=== PATIENT | female | born 1935 | race Caucasian/White ===

== ENCOUNTER 2018-03-06 09:37 | Emergency (ER) | payer OTHER, BC ==
[~2018-03-06] VITALS: Ht 162.6 cm; Wt 89.4 kg
[~2018-03-06 09:37] MED LIST: ACET500T58 PO; ASPEC81 PO; CHOL2000 PO; COEN1CAP37 PO; GLUCTAB54 PO; HYDR-3419 PO; LACTCAP27 PO; LISI20TA PO; OMEG10002 PO; PARO10TA PO; SYN125 PO; TRAZ50TA35 PO
[2018-03-06 09:40] VITALS: TEMP 37.2; Ht 162.6 cm; Wt 89.4 kg
[2018-03-06] MEDS ORDERED: METO50TA16 PO (10:22)
[2018-03-06] MEDS ORDERED: FURO-85 PO (10:22)
[2018-03-06] MEDS ORDERED: LEVO125T72 PO (10:22)
[2018-03-06] MEDS ORDERED: CLOP1TAB15 PO (10:22)
[2018-03-06] MEDS ORDERED: CHOL1000 PO (10:22)
[2018-03-06] MEDS ORDERED: HYDR-5688 PO (10:22)
[2018-03-06] MEDS ORDERED: ASPI81TA28 PO (10:22)
[2018-03-06] MEDS ORDERED: LISI-787 PO (10:22)
--- NOTE | 2018-03-06 10:46 | EMERGENCY ROOM VISIT NOTE ---
History First contact with patient: 10:12 Chief Complaint: FALL Stated Complaint: PAIN FROM FALL History of Present Illness The patient is a 82 year old female with hx of R knee replacement and need for L knee replacement presents to the Emergency Room with complaints of low back pain x 5 days s/p fall. Reports tripping over dog's toy on 5 days ago, falling on both knees and went against dog crate which pushed her back, back. Denies LOC or hitting head. Initially reported to be sore, went to chiropractor who set her back but pain worsened over the weekend. Associated with back weakness, bruise over L breast region, bruise and swelling of L leg (knee to ankle region) . Pt reports L leg being chronically weak due to knee problem and requiring cane to ambulate at times. Denies paraesthesias. Has chronic bladder incontinence. Constipated x 2 days (usually has diarrhea). Pt had a R knee replacement about 15 years ago and is scheduled to have L knee replacement. Pt has a TENS machine for back spasms which helps with pain Review of Systems see below Constitutional: No fever, No chills Cardiovascular: No chest pain Abdomen: + constipation, No pain, No nausea, No vomiting Musculoskeletal: + problem reported (back pain and L knee pain) Genitourinary - Female: + urinary incontinence (chronic) Neurologic: + weakness (back ), No numbness/tingling Integumentary: + problem reported (bruise over L breast and L knee down to L ankle region) Past Medical/Surgical History Medical Problems: (1) HTN (hypertension) (2) Hypothyroid Surgical Problems: (1) History of knee replacement Social History Smoking Status: Former Smoker Current/Historical Medications Scheduled Aspirin (Aspirin Ec), 81 MG PO DAILY Cholecalciferol (Vitamin D3), 1,000 UNIT PO DAILY Clopidogrel (Plavix), 75 MG PO DAILY Coenzyme Q10 (Ubidecarenone) (Co Q-10), 200 MG PO DAILY Furosemide (Lasix), 20 MG PO DIRECTED Dppfgtougmi-Kydugyljkgj-Cwdgmp (Glucosamine Chondroitin M), 2 TAB PO DAILY Lactobacillus-Inulin (Culturelle Digestive Heal), 1 CAP PO DAILY Levothyroxine Sodium (Synthroid), 125 MCG PO DAILY Lisinopril/Hctz (Zestoretic 20MG/12.5MG), 2 TAB PO DAILY Metoprolol Tartrate (Lopressor) (Lopressor), 50 MG PO BID [place]-3 Fatty Acids (Fish Oil), 1,000 MG PO DAILY Paroxetine Hcl (Paxil), 10 MG PO DAILY Tramadol Hcl (Ultram), 25 MG PO Q8H Trazodone Hcl (Trazodone), 75 MG PO HS Scheduled PRN Hydrocodone/Acetaminophen 5MG/325MG ([place] 5MG/325MG), 1 TABLET PO Q6 PRN for Pain Physical Exam Vital Signs Date Time Temp Pulse Resp B/P (MAP) Pulse Ox O2 Delivery O2 Flow Rate FiO2 03/06/18 09:40 37.2 66 16 190/78 96 Room Air Physical Exam see below General Appearance: no apparent distress Head: normocephalic, atraumatic Eyes: normal inspection ENT: normal ENT inspection Neck: supple Respiratory/Chest: lungs clear, normal breath sounds Cardiovascular: regular rate, rhythm, no murmur Abdomen / GI: normal bowel sounds, non tender, soft Back: normal inspection, + pertinent finding (L sided lumbar paraspinal muscle TTP, no spinous process TTP; neg straight leg raising test ) Extremities: + pertinent finding (full hip and knee ROM; reports back pain with full flesion of L leg) Neurologic/Psych: + pertinent finding (sensation intact over b/l LEs; strength 5/5 over b/l LEs) Medical Decision & Procedures Medical Decision 82 year old female with hx of R knee replacement and need for L knee replacement presents to the Emergency Room with complaints of low back pain x 5 days s/p fall. No LOC/did not hit head. Associated with L breast bruise and L leg bruise (knee to ankle). Consistent with lumbar strain vs. muscle spasm and ecchymosis s/p fall vs. L hip fracture vs. knee contusion -xray of b/l pelvis/hip; L knee and lumbar spine ordered - b/l pelvis/hip mild WANG; no fracture - medial L knee mod-severe WANG no fx or effusion - chronic low back changes -discharged home with ultram 25mg TID x 5 days Medication Reconcilliation Current Medication List: was personally reviewed by me Impression Primary Impression: Fall Additional Impression: Low back strain Departure Information Prescriptions Tramadol Hcl (ULTRAM) 50 Mg Tab 25 MG PO Q8H for 5 Days, #8 TAB PRN PAIN Prov: Amarjit Carty M.D. 03/06/18 Referrals Josh Sharma M.D. (PCP) Patient Instructions [facility] Problem Qualifiers
--- NOTE | 2018-03-06 11:39 | DIAGNOSTIC IMAGING REPORT ---
L KNEE 1 OR 2 VIEWS ROUTINE CLINICAL HISTORY: Left knee pain following fall. COMPARISON: Left knee radiographs June 14, 2014. FINDINGS: Alignment of the left knee is anatomic. No acute fracture or joint effusion is noted. There is moderate joint space narrowing within the medial compartment with osteophytosis. There is chondrocalcinosis within the menisci. IMPRESSION: 1. No acute fracture or joint effusion of the left knee. 2. 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 Electronically signed by: Everett Almaraz M.D. 03/06/2018 11:37 AM Dictated Date/Time: 03/06/2018 11:36 AM
--- NOTE | 2018-03-06 11:43 | DIAGNOSTIC IMAGING REPORT ---
PELVIS/BILATERAL HIP 2 VIEWS CLINICAL HISTORY: hip/back pain COMPARISON STUDY: None. FINDINGS: No fracture or dislocation within the pelvis or hips. The sacrum appears intact. Mild cartilage space narrowing, subchondral sclerosis, and small marginal osteophytes within the bilateral hips. This is consistent with osteoarthritis. There is also osteitis pubis. Faint chondrocalcinosis within the hips. Mild degenerative disease within the lower lumbar spine. Suture material within the right lower quadrant. IMPRESSION: 1. No fracture or dislocation within the pelvis or hips. 2. Mild bilateral hip osteoarthritis. 3. Chondrocalcinosis. Electronically signed by: Blas Garland M.D. 03/06/2018 11:41 AM Dictated Date/Time: 03/06/2018 11:40 AM
--- NOTE | 2018-03-06 11:46 | DIAGNOSTIC IMAGING REPORT ---
L-SPINE MIN 4 VIEWS ROUTINE HISTORY: 82 years-old Female low back pain acute low back pain status post fall COMPARISON: CT abdomen and pelvis 07/16/2016 TECHNIQUE: 5 views of the lumbar spine FINDINGS: 5 nonrib-bearing lumbar type vertebral segments are present. There is mild anterior wedging of approximately 20% involving the L1 vertebral body. Moderate multilevel endplate spurring with facet arthrosis and endplate spurring. Atherosclerosis of the aorta. Endograft of the thoracic aorta is partially imaged. Moderate stool volume throughout the colon. IMPRESSION: 1. Mild anterior wedging of approximately 20% involves the L1 vertebral body suggests age-indeterminate compression deformity. Correlate with point tenderness. 2. Multilevel intervertebral disc space narrowing, endplate spurring and facet arthrosis. The above report was generated using voice recognition software. It may contain grammatical, syntax or spelling errors. Electronically signed by: Erik Thomas M.D. 03/06/2018 11:44 AM Dictated Date/Time: 03/06/2018 11:41 AM
[2018-03-06] MEDS ORDERED: ULT/50 PO (12:02)
[2018-03-06 12:54] VITALS: BP 179/77; PULSE 66; O2SAT 95
--- NOTE | 2018-03-06 14:01 | EMERGENCY ROOM VISIT NOTE ---
History Report prepared by Bella: Kaushal Orozco Under the Supervision of: Dr. Minesh Beverly D.O. First contact with patient: 10:15 Chief Complaint: FALL Stated Complaint: PAIN FROM FALL History of Present Illness The patient is a 82 year old female who presents to the Emergency Room with complaints of constant low back pain s/p fall occurring five days ago. She states that she tripped over her dog's toy and landed onto both of her knees, before falling against her dog's crate. She states that she hit her back on the crate. The patient did not hit her head or lose consciousness. She was seen by a chiropractor for her pain a few days ago, but her pain worsened after seeing them. She has a TENS machine at home for back spasms which has helped her pain. The patient also complains of weakness to her back. She adds that she has chronic weakness in her left knee and ambulates using a cane at all times. She denies numbness. The patient has a history of chronic bladder incontinence. She notes that she has been constipated for the past two days, but normally has diarrhea. The patient had a right knee replacement about 15 years ago and is scheduled to have left knee replacement. She is on blood thinners. Source of History: patient Onset: Five days ago Position: back (lower) Timing: constant Modifying Factors (Worsening): other (chiropractor) Modifying Factors (Relieving): other (TENS machine) Associated Symptoms: + weakness (of back), No numbness Review of Systems See HPI for pertinent positives & negatives. A total of 10 systems reviewed and were otherwise negative. Past Medical & Surgical Medical Problems: (1) HTN (hypertension) (2) Hypothyroid Surgical Problems: (1) History of knee replacement Family History No pertinent family history stated. Social History Smoking Status: Former Smoker Current/Historical Medications Scheduled Aspirin (Aspirin Ec), 81 MG PO DAILY Cholecalciferol (Vitamin D3), 1,000 UNIT PO DAILY Clopidogrel (Plavix), 75 MG PO DAILY Coenzyme Q10 (Ubidecarenone) (Co Q-10), 200 MG PO DAILY Furosemide (Lasix), 20 MG PO DIRECTED Siqfhbwmdvb-Hisvtcebgsw-Moubsj (Glucosamine Chondroitin M), 2 TAB PO DAILY Lactobacillus-Inulin (Culturelle Digestive Heal), 1 CAP PO DAILY Levothyroxine Sodium (Synthroid), 125 MCG PO DAILY Lisinopril/Hctz (Zestoretic 20MG/12.5MG), 2 TAB PO DAILY Metoprolol Tartrate (Lopressor) (Lopressor), 50 MG PO BID [place]-3 Fatty Acids (Fish Oil), 1,000 MG PO DAILY Paroxetine Hcl (Paxil), 10 MG PO DAILY Tramadol Hcl (Ultram), 25 MG PO Q8H Trazodone Hcl (Trazodone), 75 MG PO HS Scheduled PRN Hydrocodone/Acetaminophen 5MG/325MG ([place] 5MG/325MG), 1 TABLET PO Q6 PRN for Pain Allergies Coded Allergies: Niacin (Verified Allergy, Intermediate, RENDESS, SKIN BURNING, 01/28/14) BEE STING (Verified Allergy, Mild, HIVES, 01/28/14) Molds and Smuts (Verified Allergy, Mild, SNEEZING, 01/28/14) Metformin (Verified Allergy, Unknown, MYALGIA, FATIGUE, 01/28/14) POLLEN (Verified Allergy, Unknown, TREE POLLENS: PROFOUND ACHE/FATIGUE, 01/28/14) Physical Exam Vital Signs Date Time Temp Pulse Resp B/P (MAP) Pulse Ox O2 Delivery O2 Flow Rate FiO2 03/06/18 12:54 66 16 179/77 95 03/06/18 12:45 66 16 179/77 95 03/06/18 09:40 37.2 66 16 190/78 96 Room Air Physical Exam CONSTITUTIONAL/VITAL SIGNS: Reviewed / noted above. GENERAL: Non-toxic in appearance. INTEGUMENTARY: Warm, dry, and [place]. HEAD: Normocephalic. EYES: without scleral icterus or trauma. ENT/OROPHARYNX: clear and moist. LYMPHADENOPATHY/NECK: Is supple without lymphadenopathy or meningismus. RESPIRATORY: Lungs clear and equal. CARDIOVASCULAR: Regular rate and rhythm. GI/ABDOMEN: Soft and nontender. No organomegaly or pulsatile mass. No rebound or guarding. Normal bowel sounds. EXTREMITIES: Warm and well perfused. BACK: No CVA tenderness. No palpable tenderness to the lumbar spine. NEUROLOGICAL: Intact without focal deficits. PSYCHIATRIC: normal affect. MUSCULOSKELETAL: Normally developed with good muscle tone. Diffuse ecchymosis to the left leg starting about the knee and inferior the ankle. Ecchymosis to the left breast. Medical Decision & Procedures ER Provider Diagnostic Interpretation: Radiology results as stated below per my review and radiologist interpretation: L-SPINE MIN 4 VIEWS ROUTINE FINDINGS: 5 nonrib-bearing lumbar type vertebral segments are present. There is mild anterior wedging of approximately 20% involving the L1 vertebral body. Moderate multilevel endplate spurring with facet arthrosis and endplate spurring. Atherosclerosis of the aorta. Endograft of the thoracic aorta is partially imaged. Moderate stool volume throughout the colon. IMPRESSION: 1. Mild anterior wedging of approximately 20% involves the L1 vertebral body suggests age-indeterminate compression deformity. Correlate with point tenderness. 2. Multilevel intervertebral disc space narrowing, endplate spurring and facet arthrosis. The above report was generated using voice recognition software. It may contain grammatical, syntax or spelling errors. Electronically signed by: Erik Thomas M.D. 03/06/2018 11:44 AM L KNEE 1 OR 2 VIEWS ROUTINE FINDINGS: Alignment of the left knee is anatomic. No acute fracture or joint effusion is noted. There is moderate joint space narrowing within the medial compartment with osteophytosis. There is chondrocalcinosis within the menisci. IMPRESSION: 1. No acute fracture or joint effusion of the left knee. 2. 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 Electronically signed by: Everett Almaraz M.D. 03/06/2018 11:37 AM PELVIS/BILATERAL HIP 2 VIEWS FINDINGS: No fracture or dislocation within the pelvis or hips. The sacrum appears intact. Mild cartilage space narrowing, subchondral sclerosis, and small marginal osteophytes within the bilateral hips. This is consistent with osteoarthritis. There is also osteitis pubis. Faint chondrocalcinosis within the hips. Mild degenerative disease within the lower lumbar spine. Suture material within the right lower quadrant. IMPRESSION: 1. No fracture or dislocation within the pelvis or hips. 2. Mild bilateral hip osteoarthritis. 3. Chondrocalcinosis. Electronically signed by: Blas Garland M.D. 03/06/2018 11:41 AM ED Course 1018: Previous medical records were reviewed. The patient was evaluated in room A10. A complete history and physical examination was performed. 1215: On reevaluation, the patient is resting comfortably. I discussed the results and findings with the patient. She verbalized agreement of the treatment plan. The patient was discharged home. Medical Decision Differential includes close head injury, intracranial bleed, facial trauma, cervical spine trauma, chest and thoracic trauma, abdominal and intra-abdominal trauma, spine neurologic trauma, extremity trauma. This is an 82-year-old female who presents to the ED with a chief complaint of a fall. The patient fell 5 days ago. The patient was seen in conjunction with the resident. Further details listed above. The patient was complaining of some low back pain. She also reported some left leg pain. She denies striking her head or loss of consciousness. She reports some chronic urinary incontinence. The patient on her exam reveals diffuse ecchymosis of the left lower extremity. She states that she is on Plavix and aspirin. She also has a contusion to her left breast. The patient has some minimal low back discomfort with palpation. There is no obvious trauma. The patient's x-rays of the lower extremity and back did not show acute fractures. There was a compression fracture of the vertebrae that is of uncertain age. The patient was told the results. She was advised to take Ultram as prescribed. She is felt to be stable for discharge. Medication Reconcilliation Current Medication List: was personally reviewed by me Blood Pressure Screening Patient's blood pressure: Elevated blood pressure Blood pressure disposition: Referred to PCP Impression Primary Impression: Fall Additional Impression: Low back strain Scribe Attestation The scribe's documentation has been prepared under my direction and personally reviewed by me in its entirety. I confirm that the note above accurately reflects all work, treatment, procedures, and medical decision making performed by me. Departure Information Dispostion Home / Self-Care Prescriptions Tramadol Hcl (ULTRAM) 50 Mg Tab 25 MG PO Q8H for 5 Days, #8 TAB PRN PAIN Prov: Amarjit Carty M.D. 03/06/18 Referrals Josh Sharma M.D. (PCP) Forms HOME CARE DOCUMENTATION FORM, IMPORTANT VISIT INFORMATION Patient Instructions Low Back Pain Self Care, My [facility] Status4 Additional Instructions Take: ultram 25mg three times a day as needed for pain follow up with your PCP within 1-2 days Problem Qualifiers
== END 2018-03-06 12:54 | disposition home or self-care (01) ==
LOC: C.EDB 09:39 → C.EDA 12:54
DX: S39.012A Strain of muscle, fascia and tendon of lower back, initial encounter (principal); S80.12XA Contusion of left lower leg, initial encounter; S20.02XA Contusion of left breast, initial encounter; W01.198A Fall on same level from slipping, tripping and stumbling with subsequent striking against other object, initial encounter; Y92.89 Other specified places as the place of occurrence of the external cause; I10 Essential (primary) hypertension; E03.9 Hypothyroidism, unspecified; Z96.651 Presence of right artificial knee joint; R32 Unspecified urinary incontinence; Z87.891 Personal history of nicotine dependence

== ENCOUNTER 2018-03-25 19:03 | Inpatient (IN) | payer OTHER, BC ==
[~2018-03-25] VITALS: Ht 162.6 cm; Wt 85.9 kg
[~2018-03-25 19:03] MED LIST changes: -ACET500T58 PO; -ASPEC81 PO; +ASPI81TA28 PO; +CHOL1000 PO; -CHOL2000 PO; +CLOP1TAB15 PO; +FURO-85 PO; -HYDR-3419 PO; +HYDR-5688 PO; +LEVO125T72 PO; +LISI-787 PO; -LISI20TA PO; +METO50TA16 PO; -SYN125 PO
[2018-03-25] MEDS ORDERED: ONDANSETRON INJ 2 MG/ML 2 ML VIAL IV STA (19:23)
[2018-03-25] MEDS ORDERED: SODIUM CHLORIDE 0.9% 1000ML 1,000 ML IV STA (19:23)
--- NOTE | 2018-03-25 19:49 | DIAGNOSTIC IMAGING REPORT ---
CHEST ONE VIEW PORTABLE CLINICAL HISTORY: LLQ pain pain COMPARISON STUDY: 07/21/2009 FINDINGS: Mild cardiomegaly. Interval placement of a valve stent. Slight left basilar interstitial prominence. Prominent pulmonary vasculature. IMPRESSION: 1. Pulmonary vascular congestion. 2. Potential interstitial infiltrative process left base The above report was generated using voice recognition software. It may contain grammatical, syntax or spelling errors. Electronically signed by: Bob Allred M.D. 03/25/2018 7:47 PM Dictated Date/Time: 03/25/2018 7:47 PM
--- NOTE | 2018-03-25 20:11 | EMERGENCY ROOM VISIT NOTE ---
History Report prepared by Bella: Mandi Vázquez Under the Supervision of: Graeme ValentinO. First contact with patient: 19:14 Chief Complaint: ABDOMINAL PAIN Stated Complaint: SIDE PAIN,VOMITING,DIARRHEA,NOT URINATING History of Present Illness The patient is a 82 year old female who presents to the Emergency Room with complaints of persistent abdominal pain pain which began several days ago. She reports a history of diverticulitis, noting that she saw her primary care physician recently regarding possibly having it now. The patient states that she first began experiencing lower middle abdominal pain, which radiates to her back. She notes that her sides hurt when she tries standing for too long. The patient reports that she has not been able to urinate much, noting that there has not been any blood in her urine. She states that she has been nauseous, which has been preventing her from eating much lately. The patient notes that she has been having diarrhea for about a week now, stating that she began vomiting a few days ago. Her PCP gave her 5mg of Hydrocodone for the pain, which has been helping. Source of History: patient Onset: several days ago Position: abdomen Quality: other (abdominal pain) Timing: other (persistent) Associated Symptoms: + nausea, + vomiting, + diarrhea Note: Associated symptoms include: abdominal pain radiates to her back, sides hurt when she tries standing for too long, not urinating much, and not eating much. Patient denies: blood in urine. Review of Systems See HPI for pertinent positives & negatives. A total of 10 systems reviewed and were otherwise negative. Past Medical & Surgical Medical Problems: (1) HTN (hypertension) (2) Hyponatremia (3) Hypothyroid (4) Nausea vomiting and diarrhea Surgical Problems: (1) History of knee replacement Family History Cancer Heart disease Hypertension Social History Smoking Status: Never Smoker Smokeless Tobacco Use: No Alcohol Use: none Drug Use: none Marital Status: Current/Historical Medications Scheduled Aspirin (Aspirin Ec), 81 MG PO DAILY Cholecalciferol (Vitamin D3), 1,000 UNIT PO DAILY Clopidogrel (Plavix), 75 MG PO DAILY Coenzyme Q10 (Ubidecarenone) (Co Q-10), 200 MG PO DAILY Furosemide (Lasix), 20 MG PO DIRECTED Hycfgcsvwcb-Lhdxspdgmwf-Ndrqlm (Glucosamine Chondroitin M), 2 TAB PO DAILY Lactobacillus-Inulin (Culturelle Digestive Heal), 1 CAP PO DAILY Levothyroxine Sodium (Synthroid), 125 MCG PO DAILY Lisinopril/Hctz (Zestoretic 20MG/12.5MG), 2 TAB PO DAILY Metoprolol Tartrate (Lopressor) (Lopressor), 50 MG PO BID [place]-3 Fatty Acids (Fish Oil), 1,000 MG PO DAILY Paroxetine Hcl (Paxil), 10 MG PO DAILY Trazodone Hcl (Trazodone), 75 MG PO HS Scheduled PRN Hydrocodone/Acetaminophen 5MG/325MG ([place] 5MG/325MG), 1 TABLET PO Q6 PRN for Pain Allergies Coded Allergies: Niacin (Verified Allergy, Intermediate, RENDESS, SKIN BURNING, 03/25/18) BEE STING (Verified Allergy, Mild, HIVES, 03/25/18) Molds and Smuts (Verified Allergy, Mild, SNEEZING, 03/25/18) Metformin (Verified Allergy, Unknown, MYALGIA, FATIGUE, 03/25/18) POLLEN (Verified Allergy, Unknown, TREE POLLENS: PROFOUND ACHE/FATIGUE, ) Physical Exam Vital Signs Date Time Temp Pulse Resp B/P (MAP) Pulse Ox O2 Delivery O2 Flow Rate FiO2 03/25/18 19:35 69 03/25/18 19:07 36.7 68 18 159/79 95 Room Air Physical Exam GENERAL: Patient is awake, alert, and in no acute distress. Patient appears mildly anxious but comfortable. EYES: The conjunctivae are clear. The pupils are round and reactive. EARS, NOSE, MOUTH AND THROAT: The nose is without any evidence of any deformity. Mucous membranes are moist tongue is midline NECK: The neck is nontender and supple. RESPIRATORY: Normal respiratory effort is noted there is no evidence of wheezing rhonchi or rales CARDIOVASCULAR: Regular rate and rhythm noted there no murmurs rubs or gallops normal S1 normal S2 GASTROINTESTINAL: Abdomen is mildly distended but soft with no guarding or rigidity. Bowel sounds are present in all quadrants. Abdomen is nontender PELVIS: The Pelvis is stable. No tenderness to palpation is noted. BACK: No midline tenderness or or step-off noted range of motion in flexion extension as well as rotation no signs of muscle spasm noted MUSCULOSKELETAL/EXTREMITIES: There is no evidence of gross deformity full range of motion is noted in the hips and shoulders SKIN: There is no obvious evidence of any rash. There are no petechiae, pallor or cyanosis noted. NEUROLOGIC: Patient is awake alert and oriented x3 Medical Decision & Procedures ER Provider Diagnostic Interpretation: Radiology results as stated below per my review and radiologist interpretation: CHEST ONE VIEW PORTABLE CLINICAL HISTORY: LLQ pain pain COMPARISON STUDY: 07/21/2009 FINDINGS: Mild cardiomegaly. Interval placement of a valve stent. Slight left basilar interstitial prominence. Prominent pulmonary vasculature. IMPRESSION: 1. Pulmonary vascular congestion. 2. Potential interstitial infiltrative process left base The above report was generated using voice recognition software. It may contain grammatical, syntax or spelling errors. Electronically signed by: Bob Allred M.D. 03/25/2018 7:47 PM Dictated Date/Time: 03/25/2018 7:47 PM ABD/PELVIS NO IV OR ORAL CONT CT DOSE: 942.21 mGycm HISTORY: LLQ pain TECHNIQUE: Multiaxial CT images of the abdomen and pelvis were performed without contrast. A dose lowering technique was utilized adhering to the principles of ALARA. COMPARISON STUDY: 07/22/2016 FINDINGS: Lung bases are clear. Liver spleen and pancreas are unremarkable. There is fatty replacement of the pancreas. Kidneys negative for hydronephrosis. Several for small renal cortical cysts are present. Bowel pattern is nonobstructive. There are findings of considerable chronic sigmoid diverticulosis. There is no evidence for acute diverticulitis. Bladder is midline. IMPRESSION: 1. Chronic sigmoid diverticulosis. 2. No evidence for diverticulitis. 3. The abdomen and pelvis is otherwise negative. The above report was generated using voice recognition software. It may contain grammatical, syntax or spelling errors. Electronically signed by: Bob Allred M.D. 03/25/2018 9:00 PM Dictated Date/Time: 03/25/2018 8:51 PM Laboratory Results Test 03/25/18 19:27 03/25/18 21:12 Immature Granulocyte % (Auto) 0.4 % White Blood Count 10.45 K/uL (4.8-10.8) Red Blood Count 4.98 M/uL (4.2-5.4) Hemoglobin 16.2 g/dL (12.0-16.0) Hematocrit 41.3 % (37-47) Mean Corpuscular Volume 82.9 fL (80-100) Mean Corpuscular Hemoglobin 32.5 pg (25-34) Mean Corpuscular Hemoglobin Concent 39.2 g/dl (32-36) Platelet Count 305 K/uL (130-400) Mean Platelet Volume 9.3 fL (7.4-10.4) Neutrophils (%) (Auto) 75.1 % Lymphocytes (%) (Auto) 18.0 % Monocytes (%) (Auto) 6.0 % Eosinophils (%) (Auto) 0.4 % Basophils (%) (Auto) 0.1 % Neutrophils # (Auto) 7.85 K/uL (1.4-6.5) Lymphocytes # (Auto) 1.88 K/uL (1.2-3.4) Monocytes # (Auto) 0.63 K/uL (0.11-0.59) Eosinophils # (Auto) 0.04 K/uL (0-0.5) Basophils # (Auto) 0.01 K/uL (0-0.2) Immature Granulocyte # (Auto) 0.04 K/uL (0.00-0.02) Red Blood Cell Morphology Unremarkable Erythrocyte Sedimentation Rate 5 mm/hr (0-21) Prothrombin Time 11.5 SECONDS (9.0-12.0) Prothromb Time International Ratio 1.1 (0.9-1.1) Activated Partial Thromboplast Time 27.2 SECONDS (21.0-31.0) Partial Thromboplastin Ratio 1.0 Osmolality 239 mOsm/kg (280-300) Total Bilirubin 0.8 mg/dl (0.2-1) Direct Bilirubin 0.2 mg/dl (0-0.2) Aspartate Amino Transf (AST/SGOT) 37 U/L (15-37) Alanine Aminotransferase (ALT/SGPT) 42 U/L (12-78) Alkaline Phosphatase 70 U/L (45-117) Troponin I < 0.015 ng/ml (0-0.045) C-Reactive Protein < 0.29 mg/dl (0-0.29) Total Protein 7.4 gm/dl (6.4-8.2) Albumin 3.6 gm/dl (3.4-5.0) Lipase 253 U/L (73-393) Urine Color YELLOW Urine Appearance CLEAR (CLEAR) Urine pH 7.0 (4.5-7.5) Urine Specific [place] 1.013 (1.000-1.030) Urine Protein NEG (NEG) Urine Glucose (UA) NEG (NEG) Urine Ketones 1+ (NEG) Urine Occult Blood NEG (NEG) Urine Nitrite NEG (NEG) Urine Bilirubin NEG (NEG) Urine Urobilinogen NEG (NEG) Urine Leukocyte Esterase NEG (NEG) Urine Osmolality 292 mOms/kg (500-800) Urine Random Sodium 45 mEq/L Laboratory results per my review. Medications Administered Medications (Trade) Dose Ordered Sig/Juan Jose Route Start Time Stop Time Status Last Admin Dose Admin Ondansetron HCl (Zofran Inj) 4 mg NOW STAT IV 03/25/18 19:23 03/25/18 19:25 DC 03/25/18 19:56 4 MG Sodium Chloride 1,000 ml @ 999 mls/hr Q1H1M STAT IV 03/25/18 19:23 03/25/18 20:23 DC 03/25/18 19:23 999 MLS/HR Potassium Chloride 100 ml @ 100 mls/hr NOW STAT IV 03/25/18 20:27 03/25/18 21:26 DC 03/25/18 22:31 100 MLS/HR Magnesium Sulfate 100 ml @ 100 mls/hr NOW STAT IV 03/25/18 21:43 03/25/18 22:42 DC 03/25/18 22:31 100 MLS/HR ECG Per My Interpretation Indication: abdominal pain Rate (beats per minute): 70 Rhythm: normal sinus Findings: no ectopy, other (LVH by voltage criteria) Change: no significant change (07/03/2009) ED Course 1915: The patient was evaluated in room B7. A complete history and physical examination were performed. 1922: Ordered Sodium Chloride 1000ml @ 999 mls/hr IV and Zofran Inj 4mg IV. 2026: Ordered Potassium Chloride 100 ml @ 100 mls/hr IV. 2136: Discussed the patient's case with Dr. Samuel Dent, [facility] hospitalist. He will evaluate her for further treatment. 2155: I reevaluated the patient and updated her and her family on test findings and the treatment plan. They verbalized complete understanding and agreement. Medical Decision Prior records/ancillary studies reviewed. Triage Nursing notes reviewed. The patient's history was concerning for abdominal pain. Differential diagnosis: Etiologies such as appendicitis, diverticulitis, PUD, biliary pathology, UTI, pancreatitis, obstruction, mesenteric ischemia, aortic pathology, infections, inflammatory bowel disease, renal colic, as well as others were entertained. The patient is an 82-year-old female who presented to the emergency department with multiple complaints including flank pain and abdominal pain. The patient has a history of a recent fall for which she sustained a lumbar compression fracture. I reviewed the patient's previous radiographic studies. The patient was started on antibiotics for possible diverticulitis because of the abdominal pain she was describing. The patient's physical exam was not consistent with acute surgical abdomen. CT abdomen and pelvis does not reveal any acute surgical findings. At this time I would wonder if the patient's overall condition is secondary to the compression fracture but she was also found to have very significant laboratory abnormalities including hyponatremia. She was treated with IV fluids in the emergency department. I discussed patient's laboratory and radiographic studies with her and her family member. I also discussed her case with the on-call [facility] hospitalist. They have agreed to evaluate the patient in the emergency department for further management and disposition. Medication Reconcilliation Current Medication List: was personally reviewed by me Blood Pressure Screening Patient's blood pressure: Elevated blood pressure Blood pressure disposition: Elevated BP felt to be situational Consults Time Called: 2136 Consulting Physician: Dr. Samuel Dent [facility] hospitalist Returned Call: 2136 Discussed the patient's case with Dr. Samuel Dent [facility] hospitalist. He will evaluate her for further treatment. Impression Primary Impression: Flank pain Additional Impressions: Lumbar compression fracture Hyponatremia Scribe Attestation The scribe's documentation has been prepared under my direction and personally reviewed by me in its entirety. I confirm that the note above accurately reflects all work, treatment, procedures, and medical decision making performed by me. Departure Information Dispostion Being Evaluated By Hospitalist Referrals Lisbet Pham M.D. (PCP) Forms HOME CARE DOCUMENTATION FORM, IMPORTANT VISIT INFORMATION Patient Instructions My [facility] Problem Qualifiers Additional Impressions: Lumbar compression fracture Encounter type: subsequent encounter
[2018-03-25 20:13] LABS: HEMATOCRIT 41.3 % (37-47); HEMOGLOBIN 16.2 g/dL (12.0-16.0); MEAN CELL VOLUME 82.9 fL (80-100); MEAN CORPUSCULAR HEMOGLOBIN 32.5 pg (25-34); MEAN CORPUSCULAR HGB CONC 39.2 g/dl (32-36); MEAN PLATELET VOLUME 9.3 fL (7.4-10.4); PLATELET COUNT 305 K/uL (130-400); RED CELL DISTRIBUTION WIDTH SD 36.1 fL (36.4-46.3); WHITE BLOOD COUNT 10.45 K/uL (4.8-10.8)
[2018-03-25 20:16] LABS: BASO % 0.1 %; BASO ABS # 0.01 K/uL (0-0.2); EOS % 0.4 %; EOS ABS # 0.04 K/uL (0-0.5); IG# 0.04 K/uL (0.00-0.02); LYMPH ABS # 1.88 K/uL (1.2-3.4); MONO ABS # 0.63 K/uL (0.11-0.59); NEUT % 75.1 %; NEUT ABS # 7.85 K/uL (1.4-6.5)
[2018-03-25 20:19] LABS: ALBUMIN 3.6 gm/dl (3.4-5.0); ALKALINE PHOSPHATASE 70 U/L (45-117); ALT/SGPT 42 U/L (12-78); AST/SGOT 37 U/L (15-37); BLOOD UREA NITROGEN 7 mg/dl (7-18); CALCIUM 8.1 mg/dl (8.5-10.1); CARBON DIOXIDE 27 mmol/L (21-32); CREATININE 0.63 mg/dl (0.60-1.20); GLUCOSE 153 mg/dl (70-99); LIPASE 253 U/L (73-393); POTASSIUM 2.9 mmol/L (3.5-5.1); SODIUM 115 mmol/L (136-145); TOTAL PROTEIN 7.4 gm/dl (6.4-8.2)
[2018-03-25] MEDS ORDERED: POTASSIUM CHLR 10 MEQ / WTR 100 ML IV STA (20:27)
[2018-03-25 20:43] LABS: INR 1.1 (0.9-1.1); PTT PATIENT 27.2 SECONDS (21.0-31.0)
--- NOTE | 2018-03-25 21:01 | DIAGNOSTIC IMAGING REPORT ---
ABD/PELVIS NO IV OR ORAL CONT CT DOSE: 942.21 mGycm HISTORY: LLQ pain TECHNIQUE: Multiaxial CT images of the abdomen and pelvis were performed without contrast. A dose lowering technique was utilized adhering to the principles of ALARA. COMPARISON STUDY: 07/22/2016 FINDINGS: Lung bases are clear. Liver spleen and pancreas are unremarkable. There is fatty replacement of the pancreas. Kidneys negative for hydronephrosis. Several for small renal cortical cysts are present. Bowel pattern is nonobstructive. There are findings of considerable chronic sigmoid diverticulosis. There is no evidence for acute diverticulitis. Bladder is midline. IMPRESSION: 1. Chronic sigmoid diverticulosis. 2. No evidence for diverticulitis. 3. The abdomen and pelvis is otherwise negative. The above report was generated using voice recognition software. It may contain grammatical, syntax or spelling errors. Electronically signed by: Bob Allred M.D. 03/25/2018 9:00 PM Dictated Date/Time: 03/25/2018 8:51 PM
[2018-03-25 21:38] LABS: OSMOLALITY,URINE 292 mOms/kg (500-800)
[2018-03-25] MEDS ORDERED: MAGNESIUM SULFATE 1GM / D5W 100 ML IV STA (21:43)
[2018-03-25 21:44] LABS: SODIUM RANDOM URINE 45 mEq/L
[2018-03-25] MEDS ORDERED: HYDROCODONE/ACETAMIN 5/325MG TAB PO PRN (21:45)
[2018-03-25] MEDS ORDERED: ALUMINUM/MAGNESIUM/SIMETH (MAALOX MAX) 30 ML UDC PO PRN (22:00)
[2018-03-25] MEDS ORDERED: MAGNESIUM HYDROXIDE SUSP 30 ML UDC PO PRN (22:00)
[2018-03-25] MEDS ORDERED: POLYETHYLENE (MIRALAX) 17 GM PACK PO PRN (22:00)
[2018-03-25] MEDS ORDERED: ONDANSETRON INJ 2 MG/ML 2 ML VIAL IV PRN (22:00)
[2018-03-25] MEDS ORDERED: ACETAMINOPHEN 325 MG TAB PO PRN (22:00)
--- NOTE | 2018-03-25 22:42 | History and Physical ---
History & Physical Date & Time of Service: Mar 25, 2018 at 22:19 Chief Complaint: Side Pain,Vomiting,Diarrhea,Not Urinating Primary Care Physician: Lisbet Pham M.D. History of Present Illness Source: patient 82 y/o F Hx HTN, hypothyroid, colon CA, chronic sigmoid diverticulitis, TAVR . Presents with nausea, vomiting, diarrhea and back and flank pain. She has had diarrhea for 3 weeks and also developed nausea and vomiting over the past few days. She cannot confirm a fever. She suffered a fall 03/06 leading to an L1 compression fracture and has had lower back and flank pain which she states has been worsening over the past few days. She denies CP, SOB. Her urine output has been minimal, although shed dines dysuria. Initial labs in the ER are notable for hypokalemia and hyponatremia with a sodium of 114. A CT of the abdomen confirms chronic sigmoid diverticulosis without evidence of diverticulitis. she has been treated with Cipro, Flagyl and Augmentin. 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 [place] 06/2017 2) Stage II colon CA resected 2008 3) Diverticulosis 4) HTN 5) Hypothyroidism 6) Osteoporosis Family History Cancer Heart disease Hypertension Social History Does not smoke or drink Smoking Status: Never Smoker Smokeless Tobacco Use: No Drug Use: none Marital Status: Immunizations History of Influenza Vaccine: N/A Influenza Vaccine Date: Aug 22, 2008 History of Tetanus Vaccine?: Yes Tetanus Immunization Date: Jul 22, 2008 History of Pneumococcal: Yes Pneumococcal Date: Jul 22, 2004 History of Hepatitis B Vaccine: No Allergies Coded Allergies: Niacin (Verified Allergy, Intermediate, RENDESS, SKIN BURNING, 03/25/18) BEE STING (Verified Allergy, Mild, HIVES, 03/25/18) Molds and Smuts (Verified Allergy, Mild, SNEEZING, 03/25/18) Metformin (Verified Allergy, Unknown, MYALGIA, FATIGUE, 03/25/18) POLLEN (Verified Allergy, Unknown, TREE POLLENS: PROFOUND ACHE/FATIGUE, ) Home Medications Scheduled Aspirin (Aspirin Ec), 81 MG PO DAILY Cholecalciferol (Vitamin D3), 1,000 UNIT PO DAILY Clopidogrel (Plavix), 75 MG PO DAILY Coenzyme Q10 (Ubidecarenone) (Co Q-10), 200 MG PO DAILY Furosemide (Lasix), 20 MG PO DIRECTED Csbwcoqvwqx-Wuvgfiktyau-Hblixu (Glucosamine Chondroitin M), 2 TAB PO DAILY Lactobacillus-Inulin (Culturelle Digestive Heal), 1 CAP PO DAILY Levothyroxine Sodium (Synthroid), 125 MCG PO DAILY Lisinopril/Hctz (Zestoretic 20MG/12.5MG), 2 TAB PO DAILY Metoprolol Tartrate (Lopressor) (Lopressor), 50 MG PO BID [place]-3 Fatty Acids (Fish Oil), 1,000 MG PO DAILY Paroxetine Hcl (Paxil), 10 MG PO DAILY Trazodone Hcl (Trazodone), 75 MG PO HS Scheduled PRN Hydrocodone/Acetaminophen 5MG/325MG ([place] 5MG/325MG), 1 TABLET PO Q6 PRN for Pain Review of Systems Constitutional: No fever, No chills, No sweats Eyes: No worsening of vision ENT: No hearing loss, No nasal symptoms Respiratory: No cough, No sputum, No wheezing Cardiovascular: No chest pain, No orthopnea, No PND Abdomen: + nausea, + vomiting, + diarrhea, + problem reported (BL flank pain ) , No pain Musculoskeletal: + joint pain (Lower back pain) Genitourinary - Female: No dysuria, No urinary frequency Neurologic: No memory loss, No paralysis Psychiatric: No depression symptoms Endocrine: No fatigue Hematologic / Lymphatic: No abnormal bleeding/bruising Integumentary: No rash Allergic / Immunologic: No environmental allergies Physical Exam Vital Signs Date Time Temp Pulse Resp B/P (MAP) Pulse Ox O2 Delivery O2 Flow Rate FiO2 03/25/18 22:09 78 20 182/93 94 Room Air 03/25/18 19:35 69 03/25/18 19:07 36.7 68 18 159/79 95 Room Air General Appearance: WD/WN, no apparent distress Head: normocephalic Eyes: normal inspection ENT: normal ENT inspection, pharynx normal Neck: supple, no JVD Respiratory/Chest: chest non-tender, lungs clear, normal breath sounds Cardiovascular: regular rate, rhythm, no edema Abdomen/GI: normal bowel sounds, non tender, soft Back: no CVA tenderness, + pertinent finding (I did not sit the pt up as this exacerbates her pain) Extremities/Musculoskelatal: no calf tenderness, normal capillary refill Neurologic/Psych: lye treater II-XII nml as tested, no motor/sensory deficits, alert, oriented x 3 Skin: normal color Diagnostics Laboratory Results Results Past 24 Hours Test 03/25/18 19:27 03/25/18 21:12 Range/Units White Blood Count 10.45 4.8-10.8 K/uL Red Blood Count 4.98 4.2-5.4 M/uL Hemoglobin 16.2 12.0-16.0 g/dL Hematocrit 41.3 37-47 % Mean Corpuscular Volume 82.9 80-100 fL Mean Corpuscular Hemoglobin 32.5 25-34 pg Mean Corpuscular Hemoglobin Concent 39.2 32-36 g/dl Platelet Count 305 130-400 K/uL Mean Platelet Volume 9.3 7.4-10.4 fL Neutrophils (%) (Auto) 75.1 % Lymphocytes (%) (Auto) 18.0 % Monocytes (%) (Auto) 6.0 % Eosinophils (%) (Auto) 0.4 % Basophils (%) (Auto) 0.1 % Neutrophils # (Auto) 7.85 1.4-6.5 K/uL Lymphocytes # (Auto) 1.88 1.2-3.4 K/uL Monocytes # (Auto) 0.63 0.11-0.59 K/uL Eosinophils # (Auto) 0.04 0-0.5 K/uL Basophils # (Auto) 0.01 0-0.2 K/uL RDW Standard Deviation 36.1 36.4-46.3 fL RDW Coefficient of Variation 12.0 11.5-14.5 % Immature Granulocyte % (Auto) 0.4 % Immature Granulocyte # (Auto) 0.04 0.00-0.02 K/uL Red Blood Cell Morphology Unremarkable Erythrocyte Sedimentation Rate 5 0-21 mm/hr Prothrombin Time 11.5 9.0-12.0 SECONDS Prothromb Time International Ratio 1.1 0.9-1.1 Activated Partial Thromboplast Time 27.2 21.0-31.0 SECONDS Partial Thromboplastin Ratio 1.0 Sodium Level 115 136-145 mmol/L Potassium Level 2.9 3.5-5.1 mmol/L Chloride Level 79 98-107 mmol/L Carbon Dioxide Level 27 21-32 mmol/L Anion Gap 9.0 3-11 mmol/L Blood Urea Nitrogen 7 7-18 mg/dl Creatinine 0.63 0.60-1.20 mg/dl Est Creatinine Clear Calc Drug Dose 70.5 ml/min Estimated GFR () 95.5 Estimated GFR (Non- 82.4 BUN/Creatinine Ratio 11.0 10-20 Random Glucose 153 70-99 mg/dl Osmolality 239 280-300 mOsm/kg Calcium Level 8.1 8.5-10.1 mg/dl Total Bilirubin 0.8 0.2-1 mg/dl Direct Bilirubin 0.2 0-0.2 mg/dl Aspartate Amino Transf (AST/SGOT) 37 15-37 U/L Alanine Aminotransferase (ALT/SGPT) 42 12-78 U/L Alkaline Phosphatase 70 45-117 U/L Troponin I < 0.015 0-0.045 ng/ml C-Reactive Protein < 0.29 0-0.29 mg/dl Total Protein 7.4 6.4-8.2 gm/dl Albumin 3.6 3.4-5.0 gm/dl Lipase 253 73-393 U/L Urine Color YELLOW Urine Appearance CLEAR CLEAR Urine pH 7.0 4.5-7.5 Urine Specific [place] 1.013 1.000-1.030 Urine Protein NEG NEG Urine Glucose (UA) NEG NEG Urine Ketones 1+ NEG Urine Occult Blood NEG NEG Urine Nitrite NEG NEG Urine Bilirubin NEG NEG Urine Urobilinogen NEG NEG Urine Leukocyte Esterase NEG NEG Urine Osmolality 292 500-800 mOms/kg Urine Random Sodium 45 mEq/L Diagnostic Radiology XR lumbar 03/06: 1. Mild anterior wedging of approximately 20% involves the L1 vertebral body suggests age-indeterminate compression deformity. Correlate with point tenderness. 2. Multilevel intervertebral disc space narrowing, endplate spurring and facet arthrosis. CT abdomen: Impression Assessment and Plan 82 y/o F Hx HTN, hypothyroid, colon CA, chronic sigmoid diverticulitis, TAVR . Presents with nausea, vomiting, diarrhea and back and flank pain. She has had diarrhea for 3 weeks and also developed nausea and vomiting over the past few days. She cannot confirm a fever. She suffered a fall 03/06 leading to an L1 compression fracture and has had lower back and flank pain which she states has been worsening over the past few days. She denies CP, SOB. Her urine output has been minimal, although shed dines dysuria. Initial labs in the ER are notable for hypokalemia and hyponatremia with a sodium of 114. A CT of the abdomen confirms chronic sigmoid diverticulosis without evidence of diverticulitis. 1) Hypona, hypoK due to N/V/D - electrolytes will be corrected and carefully trended - pt will be monitored on telemetry in the interim. 2) N/V/D - there is no current evidence of diverticulitis. She has been on antibiotics for 3 weeks and is certainly at risk of C diff - studies and stool cultures ordered - antibiotics held at present. Provided with aggressive hydration. 3) HTN - diuretic is held - her renal function is excellent despite dehydration. We will sub Hydralazine PRN while she is rehydrated. 4) History of TAVR - she was placed on ASA and Plavix following her surgery - we will continue as tolerated. 5) Hypothyroidism - cont Synthroid - check TSH due to hyponatremia 6) Back and flank pain are likely the result of a compression fracture sustained on 03/06 - cont analgesics - PT/OT AM Full code - Heparin prophylaxis Total time for this admit including review of labs, meds, imaging, records - discussion with pt and ER attending - 38 min Resuscitation Status VTE Prophylaxis Will order VTE Prophylaxis: Yes
[2018-03-25] MEDS ORDERED: HYDROmorphone INJ 0.5 MG/0.5 ML SYR IV PRN (23:00)
[2018-03-25 23:42] VITALS: BP 174/82; PULSE 87; TEMP 36.7; O2SAT 94; Ht 162.6 cm; Wt 85.9 kg
[2018-03-25] MEDS ORDERED: NSS + 20MEQ KCL 1000ML 1,000 ML IV SCH (23:45)
[2018-03-26] VITALS (7 sets, daily range): BP systolic 111–178; BP diastolic 67–90; PULSE 57–75; TEMP 36.8–37; O2SAT 93–98
[2018-03-26 00:15] LABS: CALCIUM 8.2 mg/dl (8.5-10.1); CREATININE 0.52 mg/dl (0.60-1.20)
[2018-03-26] MEDS: HEPARIN SOD 5000 UNIT/0.5 ML CARP SQ SCH ×3 (00:15→16:33)
[2018-03-26] MEDS: POTASSIUM CHLR 10 MEQ / WTR 100 ML IV SCH ×4 (00:15→10:23)
[2018-03-26 02:31] LABS: CALCIUM 8.2 mg/dl (8.5-10.1); CREATININE 0.63 mg/dl (0.60-1.20); POTASSIUM 3.5 mmol/L (3.5-5.1)
[2018-03-26 06:21] LABS: CALCIUM 7.9 mg/dl (8.5-10.1); CREATININE 0.43 mg/dl (0.60-1.20); POTASSIUM 3.2 mmol/L (3.5-5.1)
[2018-03-26] MEDS: LEVOTHYROXINE 125 MCG TAB PO SCH (06:25)
[2018-03-26] MEDS ORDERED: NURSING VERBAL MED ORDER ONE (06:40)
[2018-03-26 07:20] LABS: HEMOGLOBIN 14.5 g/dL (12.0-16.0); MEAN CORPUSCULAR HEMOGLOBIN 31.2 pg (25-34); MEAN CORPUSCULAR HGB CONC 36.3 g/dl (32-36); MEAN PLATELET VOLUME 8.6 fL (7.4-10.4); PLATELET COUNT 250 K/uL (130-400); RED CELL DISTRIBUTION WIDTH CV 12.2 % (11.5-14.5); RED CELL DISTRIBUTION WIDTH SD 39.1 fL (36.4-46.3)
[2018-03-26] MEDS: PAROXETINE 20 MG TAB PO SCH (07:39)
[2018-03-26] MEDS: CLOPIDOGREL BISULFATE 75 MG TAB PO SCH (07:39)
[2018-03-26] MEDS: ASPIRIN 81 MG ECTAB PO SCH (07:39)
[2018-03-26] MEDS: METOPROLOL TARTRATE 50 MG TAB PO SCH ×2 (07:39→20:37)
[2018-03-26] MEDS ORDERED: POTASSIUM CHLR 20 MEQ / WTR 20 MEQ in PREMIXED WATER 100 ML IV STA (08:21)
[2018-03-26] MEDS ORDERED: POTASSIUM CHLORIDE 10 MEQ TABCR PO STA (08:21)
[2018-03-26] MEDS ORDERED: POTASSIUM PHOS 3 MMOL/1 ML INFUSION IV STA (08:21)
[2018-03-26] MEDS ORDERED: POTASSIUM PHOSPHATE INJ 15 MMOL in SODIUM CHLORIDE 0.9% 250ML 250 ML IV ONE (08:30)
[2018-03-26 12:42] LABS: CALCIUM 8.1 mg/dl (8.5-10.1); CREATININE 0.53 mg/dl (0.60-1.20); POTASSIUM 4.4 mmol/L (3.5-5.1)
[2018-03-26] MEDS ORDERED: ENALAPRILAT IV 2.5 MG in DEXTROSE 5% 25ML 25 ML IV ONE (16:30)
[2018-03-26 16:48] LABS: CALCIUM 7.8 mg/dl (8.5-10.1); CREATININE 0.51 mg/dl (0.60-1.20); POTASSIUM 3.9 mmol/L (3.5-5.1)
--- NOTE | 2018-03-26 17:08 | Progress Note ---
Subjective Date of Service: Mar 26, 2018. Subjective Pt evaluation today including: conversation w/ patient, physical exam, chart review, lab review, review of studies, conversation w/ construction safety consultant, review of inpatient medication list generally feeling better, no more nausea vomiting, tolerate diet, denies abdominal pain denies diarrhea constipation, has 1 bowel movement already Problem List Medical Problems: (1) Fall Status: Acute (2) Flank pain Status: Acute (3) Low back strain Status: Acute (4) Lumbar compression fracture Status: Acute Review of Systems Constitutional: + weakness, + fatigue, No fever, No chills, No sweats, No weight loss, No problem reported Eyes: No worsening of vision, No eye pain, No redness, No discharge, No diplopia ENT: No hearing loss, No unusual epistaxis, No nasal symptoms, No sore throat, No tinnitus, No dental problems, No trouble swallowing Respiratory: No cough, No sputum, No wheezing, No shortness of breath, No dyspnea on exertion, No dyspnea at rest, No hemoptysis Cardiac: No chest pain, No orthopnea, No PND, No edema, No claudication, No palpitations Abdomen: No pain, No nausea, No vomiting, No diarrhea, No constipation Musculoskeletal: No joint pain, No muscle pain, No swelling, No calf pain Female : No dysuria, No urinary frequency, No hematuria, No incontinence, No abnormal vaginal bleeding, No vaginal discharge Neurologic: No memory loss, No paralysis, No weakness, No numbness/tingling, No vertigo, No balance problems Psychiatric: No depression symptoms, No anhedonism, No anxiety, No insomnia, No substance abuse Heme: No abnormal bleeding/bruising, No clotting problems, No swollen lymph nodes, No night sweats Endo: No fatigue, No excessive thirst, No excessive urination Skin: No rash, No itch, No new/changing skin lesions, No color change, No bleeding Objective Vital Signs Date Time Temp Pulse Resp B/P (MAP) Pulse Ox O2 Delivery O2 Flow Rate FiO2 03/26/18 15:41 36.8 62 20 178/88 (118) 93 Room Air 03/26/18 12:19 36.8 67 18 177/90 (119) 94 03/26/18 12:03 Room Air 03/26/18 08:05 Room Air 03/26/18 07:45 36.8 75 18 159/75 (103) 98 03/26/18 04:00 Room Air 03/26/18 03:48 37.0 74 18 165/80 (108) 96 Room Air 03/25/18 23:42 36.7 87 18 174/82 94 Room Air 03/25/18 22:09 78 20 182/93 94 Room Air 03/25/18 19:35 69 03/25/18 19:07 36.7 68 18 159/79 95 Room Air Physical Exam General Appearance: WD/WN, no apparent distress, + pertinent finding (Pleasant conversational) Eyes: normal inspection, PERRL, EOMI, sclerae normal ENT: normal ENT inspection, hearing grossly normal, pharynx normal Neck: supple, no adenopathy, thyroid normal, no JVD, no carotid bruits, trachea midline Respiratory/Chest: chest non-tender, normal breath sounds, no respiratory distress, no accessory muscle use, + decreased breath sounds Cardiovascular: regular rate, rhythm, no edema, no gallop, no JVD, no murmur Abdomen: normal bowel sounds, non tender, soft, no organomegaly, no pulsatile mass Extremities: normal range of motion, non-tender, normal inspection, no pedal edema, no calf tenderness, normal capillary refill, pelvis stable 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, no motor/sensory deficits, alert, normal mood/affect, oriented x 3 Skin: normal color, warm/dry, no rash Lymphatic: no adenopathy Laboratory Results Last 24 Hours Test 03/25/18 19:27 03/25/18 21:12 03/25/18 23:52 03/26/18 02:01 White Blood Count 10.45 K/uL Red Blood Count 4.98 M/uL Hemoglobin 16.2 g/dL Hematocrit 41.3 % Mean Corpuscular Volume 82.9 fL Mean Corpuscular Hemoglobin 32.5 pg Mean Corpuscular Hemoglobin Concent 39.2 g/dl Platelet Count 305 K/uL Mean Platelet Volume 9.3 fL Neutrophils (%) (Auto) 75.1 % Lymphocytes (%) (Auto) 18.0 % Monocytes (%) (Auto) 6.0 % Eosinophils (%) (Auto) 0.4 % Basophils (%) (Auto) 0.1 % Neutrophils # (Auto) 7.85 K/uL Lymphocytes # (Auto) 1.88 K/uL Monocytes # (Auto) 0.63 K/uL Eosinophils # (Auto) 0.04 K/uL Basophils # (Auto) 0.01 K/uL RDW Standard Deviation 36.1 fL RDW Coefficient of Variation 12.0 % Immature Granulocyte % (Auto) 0.4 % Immature Granulocyte # (Auto) 0.04 K/uL Red Blood Cell Morphology Unremarkable Erythrocyte Sedimentation Rate 5 mm/hr Prothrombin Time 11.5 SECONDS Prothromb Time International Ratio 1.1 Activated Partial Thromboplast Time 27.2 SECONDS Partial Thromboplastin Ratio 1.0 Sodium Level 115 mmol/L 120 mmol/L 123 mmol/L Potassium Level 2.9 mmol/L 3.0 mmol/L 3.5 mmol/L Chloride Level 79 mmol/L 87 mmol/L 89 mmol/L Carbon Dioxide Level 27 mmol/L 26 mmol/L 28 mmol/L Anion Gap 9.0 mmol/L 7.0 mmol/L 6.0 mmol/L Blood Urea Nitrogen 7 mg/dl 5 mg/dl 4 mg/dl Creatinine 0.63 mg/dl 0.52 mg/dl 0.63 mg/dl Est Creatinine Clear Calc Drug Dose 70.5 ml/min 85.4 ml/min 70.5 ml/min Estimated GFR () 95.5 101.7 95.5 Estimated GFR (Non- 82.4 87.7 82.4 BUN/Creatinine Ratio 11.0 9.7 6.5 Random Glucose 153 mg/dl 137 mg/dl 117 mg/dl Osmolality 239 mOsm/kg Calcium Level 8.1 mg/dl 8.2 mg/dl 8.2 mg/dl Total Bilirubin 0.8 mg/dl Direct Bilirubin 0.2 mg/dl Aspartate Amino Transf (AST/SGOT) 37 U/L Alanine Aminotransferase (ALT/SGPT) 42 U/L Alkaline Phosphatase 70 U/L Troponin I < 0.015 ng/ml C-Reactive Protein < 0.29 mg/dl Total Protein 7.4 gm/dl Albumin 3.6 gm/dl Lipase 253 U/L Urine Color YELLOW Urine Appearance CLEAR Urine pH 7.0 Urine Specific [place] 1.013 Urine Protein NEG Urine Glucose (UA) NEG Urine Ketones 1+ Urine Occult Blood NEG Urine Nitrite NEG Urine Bilirubin NEG Urine Urobilinogen NEG Urine Leukocyte Esterase NEG Urine Osmolality 292 mOms/kg Urine Random Sodium 45 mEq/L Magnesium Level 2.0 mg/dl Thyroid Stimulating Hormone (TSH) 2.410 uIu/ml Test 03/26/18 05:29 03/26/18 11:51 03/26/18 15:48 White Blood Count 6.30 K/uL Red Blood Count 4.65 M/uL Hemoglobin 14.5 g/dL Hematocrit 40.0 % Mean Corpuscular Volume 86.0 fL Mean Corpuscular Hemoglobin 31.2 pg Mean Corpuscular Hemoglobin Concent 36.3 g/dl RDW Standard Deviation 39.1 fL RDW Coefficient of Variation 12.2 % Platelet Count 250 K/uL Mean Platelet Volume 8.6 fL Sodium Level 126 mmol/L 126 mmol/L 127 mmol/L Potassium Level 3.2 mmol/L 4.4 mmol/L 3.9 mmol/L Chloride Level 93 mmol/L 94 mmol/L 95 mmol/L Carbon Dioxide Level 27 mmol/L 25 mmol/L 27 mmol/L Anion Gap 6.0 mmol/L 7.0 mmol/L 5.0 mmol/L Blood Urea Nitrogen 4 mg/dl 5 mg/dl 4 mg/dl Creatinine 0.43 mg/dl 0.53 mg/dl 0.51 mg/dl Est Creatinine Clear Calc Drug Dose 103.3 ml/min 83.8 ml/min 87.1 ml/min Estimated GFR () 108.3 101.1 102.3 Estimated GFR (Non- 93.4 87.2 88.3 BUN/Creatinine Ratio 8.5 9.9 8.5 Random Glucose 101 mg/dl 105 mg/dl 100 mg/dl Calcium Level 7.9 mg/dl 8.1 mg/dl 7.8 mg/dl Phosphorus Level 2.0 mg/dl Assessment and Plan 82 y/o admitted on March 25, 2018 for possible gastritis with nausea, vomiting , diarrhea and back and flank pain. She has past medical history of HTN, hypothyroid, colon CA, chronic sigmoid diverticulitis, TAVR 07/14. In the emergency room a CT of the abdomen confirms chronic sigmoid diverticulosis without evidence of diverticulitis. Hypona, hypoK due to N/V/D: Improving Continue IV fluid, replace electrolytes Follow-up labs on 1600 Possible gastroenteritis with N/V/D Likely from virus because patient has no evidence of infection, there is no current evidence of diverticulitis. C. difficile is negative HTN, History of TAVR, Hypothyroidism , stable continue current medications Back and flank pain are likely the result of a compression fracture sustained on 03/06 2018 , there was no local tenderness to palpation in the exam, continue supportive care PT OT Full code - Heparin prophylaxis Continued [facility] stay due to: multiple IV medications needed Discharge planning: home
[2018-03-26] MEDS: TRAZODONE HCL 50 MG TAB PO SCH (20:39)
[2018-03-27] MEDS: HEPARIN SOD 5000 UNIT/0.5 ML CARP SQ SCH ×3 (00:02→16:55)
[2018-03-27 03:40] VITALS: BP 144/74; PULSE 57; TEMP 36.9; O2SAT 95
[2018-03-27] MEDS: LEVOTHYROXINE 125 MCG TAB PO SCH (05:59)
[2018-03-27 07:45] LABS: CALCIUM 8.3 mg/dl (8.5-10.1); CREATININE 0.67 mg/dl (0.60-1.20); POTASSIUM 3.9 mmol/L (3.5-5.1)
[2018-03-27] MEDS: CHOLECALCIFEROL 1000 INTER.UNIT TAB PO SCH (08:01)
[2018-03-27] MEDS: METOPROLOL TARTRATE 50 MG TAB PO SCH ×2 (08:01→21:34)
[2018-03-27] MEDS: FUROSEMIDE 20 MG TAB PO SCH (08:01)
[2018-03-27] MEDS: ASPIRIN 81 MG ECTAB PO SCH (08:02)
[2018-03-27] MEDS: OMEGA-3 (PURIFIED FISH OIL) 1 GM CAP PO SCH (08:02)
[2018-03-27] MEDS: PAROXETINE 20 MG TAB PO SCH (08:02)
[2018-03-27 08:30] VITALS: BP 156/77; PULSE 60; TEMP 36.6; O2SAT 92
[2018-03-27] MEDS ORDERED: NON-FORMULARY MEDICATION (Coenzyme Q10 (Ubidecarenone) (Co Q-10) 200 MG) PO SCH (09:00)
[2018-03-27] MEDS ORDERED: LISINOPRIL/HCTZ 20/12.5MG TAB PO SCH (09:00)
[2018-03-27] MEDS: CLOPIDOGREL BISULFATE 75 MG TAB PO SCH (09:00)
[2018-03-27] MEDS ORDERED: MAGNESIUM SULFATE 1GM / D5W 100 ML IV ONE (09:30)
[2018-03-27 09:46] VITALS: BP 156/77; PULSE 60; TEMP 36.6; O2SAT 96
[2018-03-27] MEDS ORDERED: TRAMADOL HCL 50 MG TAB PO PRN (11:30)
[2018-03-27 13:10] VITALS: O2SAT 95
[2018-03-27 15:21] VITALS: BP 146/76; PULSE 61; TEMP 36.8; O2SAT 95
--- NOTE | 2018-03-27 15:36 | Progress Note ---
Subjective Date of Service: Mar 27, 2018. Subjective Pt evaluation today including: conversation w/ patient, conversation w/ family , physical exam, lab review, review of inpatient medication list Pain: LUQ pain, moderate PO Intake: adequate Voiding: no voiding problems patient doing well, but admits she is shaky when walking reviewed labs, Na is 131 eating well still c/p LUQ pain, explained that the CT abdomen/pelvis was normal plan to go to medical floor updated daughter at the bedside PT recommended return to the [place] with therapy Problem List Medical Problems: (1) Fall Status: Acute (2) Flank pain Status: Acute (3) Low back strain Status: Acute (4) Lumbar compression fracture Status: Acute Review of Systems Abdomen: + pain (LUQ) Neurologic: + weakness, + balance problems All Other Systems: Reviewed and Negative Medications Current Inpatient Medications Medications (Trade) Dose Ordered Sig/Juan Jose Route Start Time Stop Time Status Last Admin Dose Admin Aspirin (Ecotrin Tab) 81 mg DAILY PO 03/26/18 09:00 04/25/18 08:59 03/27/18 08:02 81 MG Clopidogrel Bisulfate (plAVix TAB) 75 mg DAILY PO 03/26/18 09:00 04/25/18 08:59 03/27/18 09:00 75 MG Acetaminophen/ Hydrocodone Bitart ([place] 5/325 Tab) 1 tab Q6 PRN PO 03/25/18 21:45 04/08/18 21:44 Levothyroxine Sodium (Synthroid Tab) 125 mcg DAILYBB PO 03/26/18 06:00 04/25/18 06:59 03/27/18 05:59 125 MCG Metoprolol Tartrate (Lopressor Tab) 50 mg BID PO 03/26/18 09:00 04/25/18 08:59 03/27/18 08:01 50 MG Paroxetine HCl (pAXil TAB) 10 mg DAILY PO 03/26/18 09:00 04/25/18 08:59 03/27/18 08:02 10 MG Trazodone HCl (Desyrel Tab) 75 mg HS PO 03/26/18 21:00 04/25/18 20:59 03/26/18 20:39 75 MG Potassium Chloride/Sodium Chloride 1,000 ml @ 100 mls/hr Q10H IV 03/25/18 23:45 Future Hold 03/26/18 00:14 100 MLS/HR Heparin Sodium (Porcine) (Heparin Sq 5000 Unit/0.5ml) 5,000 unit Q8H SQ 03/26/18 00:00 04/25/18 00:00 03/27/18 08:04 5,000 UNIT Acetaminophen (Tylenol Tab) 650 mg Q4H PRN PO 03/25/18 22:00 04/24/18 21:59 Al Hydrox/Mg Hydrox/Simethicone (Maalox Max Susp) 15 ml Q4H PRN PO 03/25/18 22:00 04/24/18 21:59 Magnesium Hydroxide (Milk Of Magnesia Susp) 30 ml Q12H PRN PO 03/25/18 22:00 04/24/18 21:59 Ondansetron HCl (Zofran Inj) 4 mg Q6H PRN IV 03/25/18 22:00 04/24/18 21:59 03/26/18 07:37 4 MG Polyethylene (Miralax Powder Packet) 17 gm DAILY PRN PO 03/25/18 22:00 04/24/18 21:59 Hydromorphone HCl (Dilaudid Inj) 0.5 mg Q4H PRN IV 03/25/18 23:00 04/08/18 22:59 Cholecalciferol (Vitamin D Tab) 1,000 inter.unit DAILY PO 03/27/18 09:00 04/26/18 08:59 03/27/18 08:01 1,000 INTER.UNIT Furosemide (Lasix Tab) 20 mg DAILY PO 03/27/18 09:00 04/26/18 08:59 03/27/18 08:01 20 MG Fish Oil ([place]-3 (Purified Fish Oil) Cap) 1 gm DAILY PO 03/27/18 09:00 04/26/18 08:59 03/27/18 08:02 1 GM Lisinopril (Zestril Tab) 20 mg QAM PO 03/28/18 08:00 04/27/18 08:59 Tramadol HCl (Ultram Tab) 50 mg Q4H PRN PO 03/27/18 11:30 04/26/18 11:29 Objective Vital Signs Date Time Temp Pulse Resp B/P (MAP) Pulse Ox O2 Delivery O2 Flow Rate FiO2 03/27/18 12:03 Room Air 03/27/18 09:46 36.6 60 18 96 03/27/18 08:30 36.6 60 18 156/77 (103) 92 Room Air 03/27/18 08:02 Room Air 03/27/18 04:00 Room Air 03/27/18 03:40 36.9 57 18 144/74 (97) 95 Room Air 03/26/18 23:59 Room Air 03/26/18 23:48 36.8 57 17 111/67 (82) 93 Room Air 03/26/18 20:00 Room Air 03/26/18 19:39 36.8 67 18 164/82 (109) 93 Room Air 03/26/18 16:00 93 Room Air 03/26/18 15:41 36.8 62 20 178/88 (118) 93 Room Air Physical Exam General Appearance: WD/WN, no apparent distress Eyes: normal inspection, EOMI, sclerae normal ENT: normal ENT inspection, hearing grossly normal, pharynx normal Neck: supple, no adenopathy, no JVD, trachea midline Respiratory/Chest: chest non-tender, lungs clear, normal breath sounds, no respiratory distress, no accessory muscle use Cardiovascular: regular rate, rhythm, no edema, no gallop, no JVD, no murmur Abdomen: normal bowel sounds, soft, no organomegaly, + tenderness (LUQ to light palpation) Extremities: normal range of motion, non-tender, normal inspection, no pedal edema, no calf tenderness, pelvis stable 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, no motor/sensory deficits, alert, normal mood/affect, oriented x 3 Skin: normal color, warm/dry, no rash Lymphatic: no adenopathy Laboratory Results Last 24 Hours Test 03/26/18 15:48 03/26/18 21:43 03/27/18 06:18 Sodium Level 127 mmol/L 131 mmol/L Potassium Level 3.9 mmol/L 3.9 mmol/L Chloride Level 95 mmol/L 98 mmol/L Carbon Dioxide Level 27 mmol/L 28 mmol/L Anion Gap 5.0 mmol/L 5.0 mmol/L Blood Urea Nitrogen 4 mg/dl 7 mg/dl Creatinine 0.51 mg/dl 0.67 mg/dl Est Creatinine Clear Calc Drug Dose 87.1 ml/min 66.3 ml/min Estimated GFR () 102.3 93.6 Estimated GFR (Non- 88.3 80.7 BUN/Creatinine Ratio 8.5 10.6 Random Glucose 100 mg/dl 81 mg/dl Calcium Level 7.8 mg/dl 8.3 mg/dl Magnesium Level 1.7 mg/dl Phosphorus Level 2.0 mg/dl Assessment and Plan 82 y/o admitted on March 25, 2018 for possible gastritis with nausea, vomiting , diarrhea and back and flank pain. She has past medical history of HTN, hypothyroid, colon CA, chronic sigmoid diverticulitis, TAVR 07/14. In the emergency room a CT of the abdomen confirms chronic sigmoid diverticulosis without evidence of diverticulitis. Hyponatremia, hypokalemia due to vomiting and diarrhea prior to admission no further diarrhea, eating better, C diff negative as outpatient stop IV fluids stop HCTZ in setting of hyponatremia hypomagnesemia, was 1.7 yesterday, 1gm IV given today Possible gastroenteritis with N/V/D Likely from virus because patient has no evidence of infection, there is no current evidence of diverticulitis. C. difficile is negative improving with supportive care HTN, History of TAVR, Hypothyroidism , stable continue current medications Back and flank pain are likely the result of a compression fracture sustained on 03/06 2018 LUQ is tender to light palpation PT/OT ordered Full code - Heparin prophylaxis transfer to medical floor, anticipate discharge to the [place] tomorrow with continued therapy Continued [facility] stay due to: multiple IV medications needed Discharge planning: home
[2018-03-27 16:45] VITALS: O2SAT 95
[2018-03-27] MEDS: TRAZODONE HCL 50 MG TAB PO SCH (21:34)
[2018-03-28] VITALS: BP 110/71; TEMP 36.7; O2SAT 92
[2018-03-28] MEDS: HEPARIN SOD 5000 UNIT/0.5 ML CARP SQ SCH ×3 (00:12→16:27)
[2018-03-28] MEDS: LEVOTHYROXINE 125 MCG TAB PO SCH (06:23)
[2018-03-28 06:25] LABS: CALCIUM 8.3 mg/dl (8.5-10.1); CREATININE 0.85 mg/dl (0.60-1.20); POTASSIUM 3.5 mmol/L (3.5-5.1)
[2018-03-28 07:56] VITALS: BP 144/68; PULSE 61; TEMP 36.6; O2SAT 90
[2018-03-28] MEDS ORDERED: SODIUM CHLORIDE 1 GM TAB PO STA (08:22)
[2018-03-28] MEDS: FUROSEMIDE 20 MG TAB PO SCH (08:53)
[2018-03-28] MEDS: PAROXETINE 20 MG TAB PO SCH (08:53)
[2018-03-28] MEDS: LISINOPRIL 20 MG TAB PO SCH (08:53)
[2018-03-28] MEDS: ASPIRIN 81 MG ECTAB PO SCH (08:53)
[2018-03-28] MEDS: CHOLECALCIFEROL 1000 INTER.UNIT TAB PO SCH (08:54)
[2018-03-28] MEDS: CLOPIDOGREL BISULFATE 75 MG TAB PO SCH (08:54)
[2018-03-28] MEDS: METOPROLOL TARTRATE 50 MG TAB PO SCH ×2 (08:54→20:29)
[2018-03-28] MEDS: OMEGA-3 (PURIFIED FISH OIL) 1 GM CAP PO SCH (08:54)
--- NOTE | 2018-03-28 13:27 | Progress Note ---
Subjective Date of Service: March 28, 2018. Subjective Pt evaluation today including: conversation w/ patient, physical exam, lab review, review of inpatient medication list Pain: LUQ pain better PO Intake: adequate Voiding: no voiding problems ambulating better today, walked last night with her family pain much better today, eating more Na lower today at 127 from 131 yesterday discussed with patient, added sodium chloride Problem List Medical Problems: (1) Fall Status: Acute (2) Flank pain Status: Acute (3) Low back strain Status: Acute (4) Lumbar compression fracture Status: Acute Review of Systems Constitutional: + weakness Neurologic: + weakness, + balance problems All Other Systems: Reviewed and Negative Medications Current Inpatient Medications Medications (Trade) Dose Ordered Sig/Juan Jose Route Start Time Stop Time Status Last Admin Dose Admin Aspirin (Ecotrin Tab) 81 mg DAILY PO 03/26/18 09:00 04/25/18 08:59 03/28/18 08:53 81 MG Clopidogrel Bisulfate (plAVix TAB) 75 mg DAILY PO 03/26/18 09:00 04/25/18 08:59 03/28/18 08:54 75 MG Acetaminophen/ Hydrocodone Bitart ([place] 5/325 Tab) 1 tab Q6 PRN PO 03/25/18 21:45 04/08/18 21:44 Levothyroxine Sodium (Synthroid Tab) 125 mcg DAILYBB PO 03/26/18 06:00 04/25/18 06:59 03/28/18 06:23 125 MCG Metoprolol Tartrate (Lopressor Tab) 50 mg BID PO 03/26/18 09:00 04/25/18 08:59 03/28/18 08:54 50 MG Paroxetine HCl (pAXil TAB) 10 mg DAILY PO 03/26/18 09:00 04/25/18 08:59 03/28/18 08:53 10 MG Trazodone HCl (Desyrel Tab) 75 mg HS PO 03/26/18 21:00 04/25/18 20:59 03/27/18 21:34 75 MG Potassium Chloride/Sodium Chloride 1,000 ml @ 100 mls/hr Q10H IV 03/25/18 23:45 Future Hold 03/26/18 00:14 100 MLS/HR Heparin Sodium (Porcine) (Heparin Sq 5000 Unit/0.5ml) 5,000 unit Q8H SQ 03/26/18 00:00 04/25/18 00:00 03/28/18 08:58 5,000 UNIT Acetaminophen (Tylenol Tab) 650 mg Q4H PRN PO 03/25/18 22:00 04/24/18 21:59 Al Hydrox/Mg Hydrox/Simethicone (Maalox Max Susp) 15 ml Q4H PRN PO 03/25/18 22:00 04/24/18 21:59 Magnesium Hydroxide (Milk Of Magnesia Susp) 30 ml Q12H PRN PO 03/25/18 22:00 04/24/18 21:59 Ondansetron HCl (Zofran Inj) 4 mg Q6H PRN IV 03/25/18 22:00 04/24/18 21:59 03/26/18 07:37 4 MG Polyethylene (Miralax Powder Packet) 17 gm DAILY PRN PO 03/25/18 22:00 04/24/18 21:59 Hydromorphone HCl (Dilaudid Inj) 0.5 mg Q4H PRN IV 03/25/18 23:00 04/08/18 22:59 Cholecalciferol (Vitamin D Tab) 1,000 inter.unit DAILY PO 03/27/18 09:00 04/26/18 08:59 03/28/18 08:54 1,000 INTER.UNIT Furosemide (Lasix Tab) 20 mg DAILY PO 03/27/18 09:00 04/26/18 08:59 03/28/18 08:53 20 MG Fish Oil ([place]-3 (Purified Fish Oil) Cap) 1 gm DAILY PO 03/27/18 09:00 04/26/18 08:59 03/28/18 08:54 1 GM Lisinopril (Zestril Tab) 20 mg QAM PO 03/28/18 08:00 04/27/18 08:59 03/28/18 08:53 20 MG Tramadol HCl (Ultram Tab) 50 mg Q4H PRN PO 03/27/18 11:30 04/26/18 11:29 Sodium Chloride (Sodium Chloride Tab) 1 gm BID PO 03/28/18 20:00 04/27/18 19:59 Objective Vital Signs Date Time Temp Pulse Resp B/P (MAP) Pulse Ox O2 Delivery O2 Flow Rate FiO2 03/28/18 09:00 Room Air 5/1/18 07:56 36.6 61 18 144/68 (93) 90 Room Air 03/28/18 00:00 36.7 18 110/71 (84) 92 Room Air 03/28/18 00:00 Room Air 03/27/18 16:45 95 Room Air 03/27/18 15:21 36.8 61 24 146/76 (99) 95 Room Air Physical Exam General Appearance: WD/WN, no apparent distress Eyes: normal inspection, EOMI, sclerae normal ENT: normal ENT inspection, hearing grossly normal, pharynx normal Neck: supple, no adenopathy, no JVD, trachea midline Respiratory/Chest: chest non-tender, lungs clear, normal breath sounds, no respiratory distress, no accessory muscle use Cardiovascular: regular rate, rhythm, no edema, no gallop, no JVD, no murmur Abdomen: normal bowel sounds, non tender, soft, no organomegaly Extremities: normal range of motion, non-tender, normal inspection, no pedal edema, no calf tenderness, pelvis stable 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, alert, normal mood/affect, oriented x 3, + motor weakness (generalized) Skin: normal color, warm/dry, no rash Laboratory Results Last 24 Hours Test 03/28/18 05:27 Sodium Level 127 mmol/L Potassium Level 3.5 mmol/L Chloride Level 92 mmol/L Carbon Dioxide Level 30 mmol/L Anion Gap 5.0 mmol/L Blood Urea Nitrogen 14 mg/dl Creatinine 0.85 mg/dl Est Creatinine Clear Calc Drug Dose 52.3 ml/min Estimated GFR () 72.9 Estimated GFR (Non- 62.9 BUN/Creatinine Ratio 15.9 Random Glucose 86 mg/dl Calcium Level 8.3 mg/dl Magnesium Level 1.8 mg/dl Assessment and Plan 82 y/o admitted on March 25, 2018 for possible gastritis with nausea, vomiting , diarrhea and back and flank pain. She has past medical history of HTN, hypothyroid, colon CA, chronic sigmoid diverticulitis, TAVR 07/14. In the emergency room a CT of the abdomen confirms chronic sigmoid diverticulosis without evidence of diverticulitis. Hyponatremia, hypokalemia due to vomiting and diarrhea prior to admission stools soft today but not liquid, eating better, C diff negative here while inpatient stop HCTZ in setting of hyponatremia hypomagnesemia, was 1.7 on 03/26, replaced sodium lower today at 127 from 131 yesterday, start sodium chloride BID, repeat BMP at 1400 hold on d/c today Possible gastroenteritis with N/V/D Likely from virus because patient has no evidence of infection, there is no current evidence of diverticulitis. C. difficile is negative improving with supportive care HTN, History of TAVR, Hypothyroidism , stable continue current medications Back and flank pain are likely the result of a compression fracture sustained on 03/06 2018 LUQ is no longer tender today PT/OT ordered - can return to the [place] with therapy Full code - Heparin prophylaxis try for d/c tomorrow if sodium improved Continued [facility] stay due to: multiple IV medications needed Discharge planning: home
[2018-03-28 14:55] LABS: CALCIUM 8.6 mg/dl (8.5-10.1); CREATININE 0.84 mg/dl (0.60-1.20); POTASSIUM 3.8 mmol/L (3.5-5.1)
[2018-03-28 15:16] VITALS: BP 143/81; PULSE 61; TEMP 36.5; O2SAT 93
[2018-03-28 20:27] VITALS: BP 138/71; PULSE 73
[2018-03-28] MEDS: SODIUM CHLORIDE 1 GM TAB PO SCH (20:28)
[2018-03-28] MEDS: TRAZODONE HCL 50 MG TAB PO SCH (20:30)
[2018-03-28 23:06] VITALS: BP 128/77; PULSE 58; TEMP 36.5; O2SAT 93
[2018-03-29] MEDS: HEPARIN SOD 5000 UNIT/0.5 ML CARP SQ SCH ×4 (00:05→23:35)
[2018-03-29] MEDS: LEVOTHYROXINE 125 MCG TAB PO SCH (06:26)
[2018-03-29] MEDS: CLOPIDOGREL BISULFATE 75 MG TAB PO SCH (07:19)
[2018-03-29] MEDS: LISINOPRIL 20 MG TAB PO SCH (07:19)
[2018-03-29] MEDS: CHOLECALCIFEROL 1000 INTER.UNIT TAB PO SCH (07:19)
[2018-03-29] MEDS: PAROXETINE 20 MG TAB PO SCH (07:20)
[2018-03-29] MEDS: ASPIRIN 81 MG ECTAB PO SCH (07:20)
[2018-03-29] MEDS: FUROSEMIDE 20 MG TAB PO SCH (07:20)
[2018-03-29] MEDS: SODIUM CHLORIDE 1 GM TAB PO SCH ×2 (07:21→20:50)
[2018-03-29] MEDS: METOPROLOL TARTRATE 50 MG TAB PO SCH ×2 (07:21→20:50)
[2018-03-29] MEDS: OMEGA-3 (PURIFIED FISH OIL) 1 GM CAP PO SCH (07:21)
[2018-03-29 07:24] VITALS: BP 174/78; PULSE 69; TEMP 36.7; O2SAT 91
[2018-03-29 09:15] LABS: CALCIUM 8.6 mg/dl (8.5-10.1); CREATININE 0.72 mg/dl (0.60-1.20); POTASSIUM 3.6 mmol/L (3.5-5.1)
[2018-03-29] MEDS ORDERED: LOPERAMIDE HCL 2 MG CAP PO PRN (13:30)
[2018-03-29 15:11] VITALS: BP 150/76; PULSE 69; TEMP 36.8; O2SAT 93
--- NOTE | 2018-03-29 19:50 | GASTROINTESTINAL CONSULTATION ---
DATE OF CONSULTATION: 03/29/2018 REASON FOR CONSULTATION: Diarrhea. HISTORY OF PRESENT ILLNESS: The patient is an 82-year-old who reports frequent loose stools up to 3-4 times a day for the last 3 weeks. She is not having any nocturnal diarrhea and no fever, skin rash, although she does have some crampy abdominal pains prior to her bowel movements. The patient was recently at [facility] for a L1 compression fracture when she became ill and was transferred to the hospital here. She did have initial stool for C. diff after being on antibiotics at a rehab, but her stool for C. diff was negative. Because of persistent symptoms GI consultation has been requested. Of note is that the patient had a right colectomy in the past for colon cancer. Her last colonoscopy was about 5 years ago. PAST MEDICAL HISTORY: Remarkable for a transarterial aortic valve repair in June 2017. She had stage II colon cancer in 2008. She has a history of diverticulosis, hypertension, hypothyroidism, osteoporosis and a L1 compression fracture. FAMILY HISTORY: Positive for hypertension, heart disease and cancer. HOME MEDICATIONS: Per list. She is on aspirin and Plavix. ALLERGIES: NIACIN, BEE STINGS, MOLDS, METFORMIN AND POLLEN. SOCIAL HISTORY: The patient is . She does not smoke or drink alcohol. REVIEW OF SYSTEMS: Positive for nausea and diarrhea. She also complained of back pain. PHYSICAL EXAMINATION: GENERAL: The patient appears awake, alert, in no acute distress. VITAL SIGNS: Blood pressure is 182/93, pulse 78, respirations 20. Room air oxygen saturations 94%. ABDOMEN: Shows abdominal scar from previous colon resection. Bowel sounds are normal. There is a little bit of tenderness in the right lower quadrant. No mass or rebound. Liver and spleen were normal. IMPRESSION: The patient has 3 weeks of diarrhea with significant electrolyte disturbances. Remarkably, her BUN and creatinine were normal. Her white count was normal. Hemoglobin is normal and platelet count were normal as well. Liver profile normal. Her initial C. diff was negative. Because of her extensive exposure to antibiotics I plan on repeating her stool for C. diff and getting a norovirus and fecal leukocyte tests. When she recovers from her acute illness and her back is improved she may need a surveillance colonoscopy due to her prior history of colon cancer. Will follow the patient during her hospital stay.
[2018-03-29] MEDS: TRAZODONE HCL 50 MG TAB PO SCH (20:50)
--- NOTE | 2018-03-29 21:44 | Progress Note ---
Subjective Date of Service: March 29, 2018. Subjective Pt evaluation today including: conversation w/ patient, conversation w/ family , physical exam, lab review, conversation w/ infrastructure consultant, review of inpatient medication list Pain: no pain PO Intake: improving Voiding: no voiding problems continues to have loose stools, getting bad again, 3-4 times a day no blood seen reviewed labs, Na up to 132, K low normal at 3.6 never had diarrhea like this before C diff negative, reviewed CT abd/pelvis again, was interpreted as normal appreciate GI consultation, plan to repeat C diff testing, further stool testing will need colonoscopy once stable Problem List Medical Problems: (1) Fall Status: Acute (2) Flank pain Status: Acute (3) Low back strain Status: Acute (4) Lumbar compression fracture Status: Acute Review of Systems Constitutional: + weakness, + fatigue Abdomen: + diarrhea All Other Systems: Reviewed and Negative Medications Current Inpatient Medications Medications (Trade) Dose Ordered Sig/Juan Jose Route Start Time Stop Time Status Last Admin Dose Admin Aspirin (Ecotrin Tab) 81 mg DAILY PO 03/26/18 09:00 04/25/18 08:59 03/29/18 07:20 81 MG Clopidogrel Bisulfate (plAVix TAB) 75 mg DAILY PO 03/26/18 09:00 04/25/18 08:59 03/29/18 07:19 75 MG Acetaminophen/ Hydrocodone Bitart ([place] 5/325 Tab) 1 tab Q6 PRN PO 03/25/18 21:45 04/08/18 21:44 Levothyroxine Sodium (Synthroid Tab) 125 mcg DAILYBB PO 03/26/18 06:00 04/25/18 06:59 03/29/18 06:26 125 MCG Metoprolol Tartrate (Lopressor Tab) 50 mg BID PO 03/26/18 09:00 04/25/18 08:59 03/29/18 20:50 50 MG Paroxetine HCl (pAXil TAB) 10 mg DAILY PO 03/26/18 09:00 04/25/18 08:59 03/29/18 07:20 10 MG Trazodone HCl (Desyrel Tab) 75 mg HS PO 03/26/18 21:00 04/25/18 20:59 03/29/18 20:50 75 MG Potassium Chloride/Sodium Chloride 1,000 ml @ 100 mls/hr Q10H IV 03/25/18 23:45 Future Hold 03/26/18 00:14 100 MLS/HR Heparin Sodium (Porcine) (Heparin Sq 5000 Unit/0.5ml) 5,000 unit Q8H SQ 03/26/18 00:00 04/25/18 00:00 03/29/18 16:20 5,000 UNIT Acetaminophen (Tylenol Tab) 650 mg Q4H PRN PO 03/25/18 22:00 04/24/18 21:59 Al Hydrox/Mg Hydrox/Simethicone (Maalox Max Susp) 15 ml Q4H PRN PO 03/25/18 22:00 04/24/18 21:59 Magnesium Hydroxide (Milk Of Magnesia Susp) 30 ml Q12H PRN PO 03/25/18 22:00 04/24/18 21:59 Ondansetron HCl (Zofran Inj) 4 mg Q6H PRN IV 03/25/18 22:00 04/24/18 21:59 03/26/18 07:37 4 MG Polyethylene (Miralax Powder Packet) 17 gm DAILY PRN PO 03/25/18 22:00 04/24/18 21:59 Hydromorphone HCl (Dilaudid Inj) 0.5 mg Q4H PRN IV 03/25/18 23:00 04/08/18 22:59 Cholecalciferol (Vitamin D Tab) 1,000 inter.unit DAILY PO 03/27/18 09:00 04/26/18 08:59 03/29/18 07:19 1,000 INTER.UNIT Furosemide (Lasix Tab) 20 mg DAILY PO 03/27/18 09:00 04/26/18 08:59 03/29/18 07:20 20 MG Fish Oil ([place]-3 (Purified Fish Oil) Cap) 1 gm DAILY PO 03/27/18 09:00 04/26/18 08:59 03/29/18 07:21 1 GM Lisinopril (Zestril Tab) 20 mg QAM PO 03/28/18 08:00 04/27/18 08:59 03/29/18 07:19 20 MG Tramadol HCl (Ultram Tab) 50 mg Q4H PRN PO 03/27/18 11:30 04/26/18 11:29 Sodium Chloride (Sodium Chloride Tab) 1 gm BID PO 03/28/18 20:00 04/27/18 19:59 03/29/18 20:50 1 GM Loperamide HCl (Imodium Cap) 2 mg Q4 PRN PO 03/29/18 13:30 04/28/18 13:29 Objective Vital Signs Date Time Temp Pulse Resp B/P (MAP) Pulse Ox O2 Delivery O2 Flow Rate FiO2 03/29/18 16:00 Room Air 03/29/18 15:11 36.8 69 18 150/76 (100) 93 Room Air 03/29/18 08:00 Room Air 03/29/18 07:24 36.7 69 18 174/78 (110) 91 Room Air 03/29/18 00:00 Room Air 03/28/18 23:06 36.5 58 18 128/77 (94) 93 Room Air Physical Exam General Appearance: WD/WN, no apparent distress Eyes: normal inspection, EOMI, sclerae normal ENT: normal ENT inspection, hearing grossly normal, pharynx normal Neck: supple, no adenopathy, no JVD, trachea midline Respiratory/Chest: chest non-tender, lungs clear, normal breath sounds, no respiratory distress, no accessory muscle use Cardiovascular: regular rate, rhythm, no edema, no gallop, no JVD, no murmur Abdomen: normal bowel sounds, non tender, soft, no organomegaly Extremities: normal range of motion, non-tender, normal inspection, no pedal edema, no calf tenderness, pelvis stable Neurologic/Psychiatric: 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, no motor/sensory deficits, alert, normal mood/affect, oriented x 3 Skin: normal color, warm/dry, no rash Laboratory Results Last 24 Hours Test 03/29/18 08:33 Sodium Level 132 mmol/L Potassium Level 3.6 mmol/L Chloride Level 98 mmol/L Carbon Dioxide Level 29 mmol/L Anion Gap 5.0 mmol/L Blood Urea Nitrogen 10 mg/dl Creatinine 0.72 mg/dl Est Creatinine Clear Calc Drug Dose 61.7 ml/min Estimated GFR () 89.1 Estimated GFR (Non- 76.9 BUN/Creatinine Ratio 14.2 Random Glucose 124 mg/dl Calcium Level 8.6 mg/dl Assessment and Plan 82 y/o admitted on March 25, 2018 for possible gastritis with nausea, vomiting , diarrhea and back and flank pain. She has past medical history of HTN, hypothyroid, colon CA, chronic sigmoid diverticulitis, TAVR 07/14. In the emergency room a CT of the abdomen confirms chronic sigmoid diverticulosis without evidence of diverticulitis. Hyponatremia, hypokalemia due to vomiting and diarrhea prior to admission stools again liquid, 3-4 times a day stop HCTZ in setting of hyponatremia hypomagnesemia, resolved with IV replacement sodium up to 132 today, continue NaCl tablets for now Chronic diarrhea, three weeks never had diarrhea like this before, lead to hyponatremia of 116 and hypokalemia, hypomagnesemia C diff negative, no colitis seen on CT scan appreciate GI consultation, plan to repeat C diff, stool testing, will need colonoscopy once stable add Imodium PRN for loose stools HTN, History of TAVR, Hypothyroidism , stable continue current medications Back and flank pain are likely the result of a compression fracture sustained on 03/06 2018 LUQ is no longer tender today PT/OT ordered - can return to the [facility] with therapy Full code - Heparin prophylaxis planning on [facility] on discharge need to control diarrhea better prior to discharge, make sure electrolytes are stable Continued [facility] stay due to: multiple IV medications needed Discharge planning: home
[2018-03-30] VITALS: O2SAT 93
[2018-03-30 00:22] VITALS: BP 155/85; PULSE 73; TEMP 36.9; O2SAT 92
[2018-03-30] MEDS: LEVOTHYROXINE 125 MCG TAB PO SCH (06:07)
[2018-03-30 07:22] VITALS: BP 173/81; PULSE 64; TEMP 36.5; O2SAT 92
[2018-03-30] MEDS: FUROSEMIDE 20 MG TAB PO SCH (07:32)
[2018-03-30] MEDS: LISINOPRIL 20 MG TAB PO SCH (07:32)
[2018-03-30] MEDS: CHOLECALCIFEROL 1000 INTER.UNIT TAB PO SCH (07:32)
[2018-03-30] MEDS: SODIUM CHLORIDE 1 GM TAB PO SCH ×2 (07:32→20:34)
[2018-03-30] MEDS: PAROXETINE 20 MG TAB PO SCH (07:32)
[2018-03-30] MEDS: METOPROLOL TARTRATE 50 MG TAB PO SCH ×2 (07:32→20:34)
[2018-03-30] MEDS: OMEGA-3 (PURIFIED FISH OIL) 1 GM CAP PO SCH (07:32)
[2018-03-30] MEDS: ASPIRIN 81 MG ECTAB PO SCH (07:32)
[2018-03-30] MEDS: CLOPIDOGREL BISULFATE 75 MG TAB PO SCH (07:32)
[2018-03-30] MEDS: HEPARIN SOD 5000 UNIT/0.5 ML CARP SQ SCH ×2 (07:33→16:13)
[2018-03-30 08:00] VITALS: O2SAT 92
--- NOTE | 2018-03-30 13:09 | PROGRESS NOTE ---
DATE: 03/30/2018 SUBJECTIVE: The patient is set down to 1 bowel movement today. She is afebrile. LABORATORY DATA: Laboratory shows her sodium has improved up to 132, potassium is normal at 3.6, magnesium is corrected to 1.8. Her stool Cryptosporidium antigen is pending. Giardia antigen pending. Norovirus pending. Fecal leukocytes pending. Routine stool culture for bacterial pathogens pending. Repeat stool for C. diff is negative. IMPRESSION: The patient's diarrhea and electrolyte abnormalities are improving. Several stool studies are pending at this time. We will continue to monitor her results. I suspect that she may have had a viral gastroenteritis as the initiating cause for her symptoms. We will follow the patient during her hospital stay.
[2018-03-30 15:04] VITALS: BP 160/79; PULSE 65; TEMP 36.5; O2SAT 94
--- NOTE | 2018-03-30 17:00 | Progress Note ---
Subjective Date of Service: March 30, 2018. Subjective Pt evaluation today including: conversation w/ patient, physical exam, conversation w/ animal nutrition consultant, review of inpatient medication list Pain: no pain today PO Intake: improved Voiding: no voiding problems patient ambulating around the RN station with family, still feels shaky but better overall she had one BM this morning, did not want to take Imodium because she wanted to proved a sample C diff again negative on repeat testing other stool testing still pending appreciate recommendations from Dr. Mauro Problem List Medical Problems: (1) Fall Status: Acute (2) Flank pain Status: Acute (3) Low back strain Status: Acute (4) Lumbar compression fracture Status: Acute Review of Systems Constitutional: + weakness Abdomen: + diarrhea Neurologic: + balance problems All Other Systems: Reviewed and Negative Medications Current Inpatient Medications Medications (Trade) Dose Ordered Sig/Juan Jose Route Start Time Stop Time Status Last Admin Dose Admin Aspirin (Ecotrin Tab) 81 mg DAILY PO 03/26/18 09:00 04/25/18 08:59 03/30/18 07:32 81 MG Clopidogrel Bisulfate (plAVix TAB) 75 mg DAILY PO 03/26/18 09:00 04/25/18 08:59 03/30/18 07:32 75 MG Acetaminophen/ Hydrocodone Bitart ([place] 5/325 Tab) 1 tab Q6 PRN PO 03/25/18 21:45 04/08/18 21:44 Levothyroxine Sodium (Synthroid Tab) 125 mcg DAILYBB PO 03/26/18 06:00 04/25/18 06:59 03/30/18 06:07 125 MCG Metoprolol Tartrate (Lopressor Tab) 50 mg BID PO 03/26/18 09:00 04/25/18 08:59 03/30/18 07:32 50 MG Paroxetine HCl (pAXil TAB) 10 mg DAILY PO 03/26/18 09:00 04/25/18 08:59 03/30/18 07:32 10 MG Trazodone HCl (Desyrel Tab) 75 mg HS PO 03/26/18 21:00 04/25/18 20:59 03/29/18 20:50 75 MG Potassium Chloride/Sodium Chloride 1,000 ml @ 100 mls/hr Q10H IV 03/25/18 23:45 Future Hold 03/26/18 00:14 100 MLS/HR Heparin Sodium (Porcine) (Heparin Sq 5000 Unit/0.5ml) 5,000 unit Q8H SQ 03/26/18 00:00 04/25/18 00:00 03/30/18 16:13 5,000 UNIT Acetaminophen (Tylenol Tab) 650 mg Q4H PRN PO 03/25/18 22:00 04/24/18 21:59 Al Hydrox/Mg Hydrox/Simethicone (Maalox Max Susp) 15 ml Q4H PRN PO 03/25/18 22:00 04/24/18 21:59 Magnesium Hydroxide (Milk Of Magnesia Susp) 30 ml Q12H PRN PO 03/25/18 22:00 04/24/18 21:59 Ondansetron HCl (Zofran Inj) 4 mg Q6H PRN IV 03/25/18 22:00 04/24/18 21:59 03/26/18 07:37 4 MG Polyethylene (Miralax Powder Packet) 17 gm DAILY PRN PO 03/25/18 22:00 04/24/18 21:59 Hydromorphone HCl (Dilaudid Inj) 0.5 mg Q4H PRN IV 03/25/18 23:00 04/08/18 22:59 Cholecalciferol (Vitamin D Tab) 1,000 inter.unit DAILY PO 03/27/18 09:00 04/26/18 08:59 03/30/18 07:32 1,000 INTER.UNIT Furosemide (Lasix Tab) 20 mg DAILY PO 03/27/18 09:00 04/26/18 08:59 03/30/18 07:32 20 MG Fish Oil ([place]-3 (Purified Fish Oil) Cap) 1 gm DAILY PO 03/27/18 09:00 04/26/18 08:59 03/30/18 07:32 1 GM Lisinopril (Zestril Tab) 20 mg QAM PO 03/28/18 08:00 04/27/18 08:59 03/30/18 07:32 20 MG Tramadol HCl (Ultram Tab) 50 mg Q4H PRN PO 03/27/18 11:30 04/26/18 11:29 Sodium Chloride (Sodium Chloride Tab) 1 gm BID PO 03/28/18 20:00 04/27/18 19:59 03/30/18 07:32 1 GM Loperamide HCl (Imodium Cap) 2 mg Q4 PRN PO 03/29/18 13:30 04/28/18 13:29 Objective Vital Signs Date Time Temp Pulse Resp B/P (MAP) Pulse Ox O2 Delivery O2 Flow Rate FiO2 03/30/18 15:04 36.5 65 18 160/79 (106) 94 Room Air 03/30/18 08:00 92 Room Air 03/30/18 07:22 36.5 64 18 173/81 (111) 92 Room Air 03/30/18 00:22 36.9 73 18 155/85 (108) 92 Room Air 03/30/18 00:00 93 Room Air Physical Exam General Appearance: WD/WN, no apparent distress Eyes: normal inspection, EOMI, sclerae normal ENT: normal ENT inspection, hearing grossly normal, pharynx normal Neck: supple, no adenopathy, no JVD, trachea midline Respiratory/Chest: chest non-tender, lungs clear, normal breath sounds, no respiratory distress, no accessory muscle use Cardiovascular: regular rate, rhythm, no edema, no gallop, no JVD, no murmur Abdomen: normal bowel sounds, non tender, soft, no organomegaly Extremities: normal range of motion, non-tender, normal inspection, no pedal edema, no calf tenderness, pelvis stable 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 She has past medical history of HTN, hypothyroid, colon CA, chronic sigmoid diverticulitis, TAVR 07/14. In the emergency room a CT of the abdomen confirms chronic sigmoid diverticulosis without evidence of diverticulitis. Hyponatremia, hypokalemia due to vomiting and diarrhea prior to admission stool frequency slowing down, slightly more formed stop HCTZ in setting of hyponatremia hypomagnesemia, resolved with IV replacement sodium up to 132 yesterday, continue NaCl tablets for now Chronic diarrhea, three weeks never had diarrhea like this before, lead to hyponatremia of 116 and hypokalemia, hypomagnesemia C diff negative x 2 samples, no colitis seen on CT scan appreciate GI consultation, stool testing, will need colonoscopy once stable add Imodium PRN for loose stools HTN, History of TAVR, Hypothyroidism , stable continue current medications Back and flank pain are likely the result of a compression fracture sustained on 03/06 2018 LUQ is no longer tender today PT/OT ordered - can return to the [facility] with therapy Full code - Heparin prophylaxis planning on [facility] on discharge, have not heard on decision yet patient ambulating around RN station with family need to control diarrhea better prior to discharge, make sure electrolytes are stable Continued [facility] stay due to: multiple IV medications needed Discharge planning: home
[2018-03-30] MEDS: TRAZODONE HCL 50 MG TAB PO SCH (20:35)
[2018-03-30 22:54] VITALS: BP 162/83; PULSE 66; TEMP 36.7; O2SAT 91
[2018-03-31] MEDS: HEPARIN SOD 5000 UNIT/0.5 ML CARP SQ SCH ×4 (00:37→23:57)
[2018-03-31] MEDS: LEVOTHYROXINE 125 MCG TAB PO SCH (06:02)
[2018-03-31 07:27] VITALS: BP 151/81; PULSE 61; TEMP 36.6; O2SAT 93
[2018-03-31] MEDS: PAROXETINE 20 MG TAB PO SCH (08:37)
[2018-03-31] MEDS: SODIUM CHLORIDE 1 GM TAB PO SCH ×2 (08:37→20:27)
[2018-03-31] MEDS: ASPIRIN 81 MG ECTAB PO SCH (08:38)
[2018-03-31] MEDS: OMEGA-3 (PURIFIED FISH OIL) 1 GM CAP PO SCH (08:38)
[2018-03-31] MEDS: METOPROLOL TARTRATE 50 MG TAB PO SCH ×2 (08:38→20:27)
[2018-03-31] MEDS: FUROSEMIDE 20 MG TAB PO SCH (08:38)
[2018-03-31] MEDS: CHOLECALCIFEROL 1000 INTER.UNIT TAB PO SCH (09:14)
[2018-03-31] MEDS: LISINOPRIL 20 MG TAB PO SCH (09:14)
[2018-03-31] MEDS: CLOPIDOGREL BISULFATE 75 MG TAB PO SCH (09:14)
[2018-03-31 10:14] LABS: CALCIUM 9.1 mg/dl (8.5-10.1); CREATININE 0.87 mg/dl (0.60-1.20)
--- NOTE | 2018-03-31 14:30 | PROGRESS NOTE ---
DATE: 03/31/2018 SUBJECTIVE: Patient had formed stool today. She had a formed stool yesterday followed by loose stool later in the day. OBJECTIVE: VITAL SIGNS: Normal. Blood pressure is a little high at 150/80. LABORATORY DATA: So far her stool for C. diff has been negative twice. Fecal leukocytes negative. Bacterial pathogens negative. Still pending is stool for Giardia, norovirus and cryptosporidium. Her electrolytes are also improving. IMPRESSION: The patient has had diarrhea of unclear etiology. I suspect it may be viral and improving. She continues to do well. She can probably go home tomorrow. She will need a colonoscopy as an outpatient at some point when she is recovered completely.
[2018-03-31 14:53] VITALS: BP 155/84; PULSE 62; TEMP 36.6; O2SAT 91
[2018-03-31] MEDS: TRAZODONE HCL 50 MG TAB PO SCH (20:27)
--- NOTE | 2018-03-31 21:29 | Progress Note ---
Subjective Date of Service: March 31, 2018. Subjective Pt evaluation today including: conversation w/ patient, conversation w/ family , physical exam, lab review, review of inpatient medication list Pain: no pain PO Intake: adequate Voiding: no voiding problems no diarrhea today, no abdominal pain, eating well discussed going to [facility], states that she cannot go, too unsteady, too weak to walk to [facility] discussed that we could get PT while there, still scared to go home discussed with case management, [facility] could maybe take for 2-3 days at best updated patient's daughter Leander she understands the issue, agrees that her mom is weaker than normal told her that she may have to go back to the [place] if [facility] will not take her asked her to consider alternative like a short term stay at SNF for extra help sodium is 132 today Problem List Medical Problems: (1) Fall Status: Acute (2) Flank pain Status: Acute (3) Low back strain Status: Acute (4) Lumbar compression fracture Status: Acute Review of Systems Constitutional: + weakness, + fatigue All Other Systems: Reviewed and Negative Medications Current Inpatient Medications Medications (Trade) Dose Ordered Sig/Juan Jose Route Start Time Stop Time Status Last Admin Dose Admin Aspirin (Ecotrin Tab) 81 mg DAILY PO 03/26/18 09:00 04/25/18 08:59 03/31/18 08:38 81 MG Clopidogrel Bisulfate (plAVix TAB) 75 mg DAILY PO 03/26/18 09:00 04/25/18 08:59 03/31/18 09:14 75 MG Acetaminophen/ Hydrocodone Bitart ([place] 5/325 Tab) 1 tab Q6 PRN PO 03/25/18 21:45 04/08/18 21:44 Levothyroxine Sodium (Synthroid Tab) 125 mcg DAILYBB PO 03/26/18 06:00 04/25/18 06:59 03/31/18 06:02 125 MCG Metoprolol Tartrate (Lopressor Tab) 50 mg BID PO 03/26/18 09:00 04/25/18 08:59 03/31/18 20:27 50 MG Paroxetine HCl (pAXil TAB) 10 mg DAILY PO 03/26/18 09:00 04/25/18 08:59 03/31/18 08:37 10 MG Trazodone HCl (Desyrel Tab) 75 mg HS PO 03/26/18 21:00 04/25/18 20:59 03/31/18 20:27 75 MG Potassium Chloride/Sodium Chloride 1,000 ml @ 100 mls/hr Q10H IV 03/25/18 23:45 Future Hold 03/26/18 00:14 100 MLS/HR Heparin Sodium (Porcine) (Heparin Sq 5000 Unit/0.5ml) 5,000 unit Q8H SQ 03/26/18 00:00 04/25/18 00:00 03/31/18 15:39 5,000 UNIT Acetaminophen (Tylenol Tab) 650 mg Q4H PRN PO 03/25/18 22:00 04/24/18 21:59 Al Hydrox/Mg Hydrox/Simethicone (Maalox Max Susp) 15 ml Q4H PRN PO 03/25/18 22:00 04/24/18 21:59 Magnesium Hydroxide (Milk Of Magnesia Susp) 30 ml Q12H PRN PO 03/25/18 22:00 04/24/18 21:59 Ondansetron HCl (Zofran Inj) 4 mg Q6H PRN IV 03/25/18 22:00 04/24/18 21:59 03/26/18 07:37 4 MG Polyethylene (Miralax Powder Packet) 17 gm DAILY PRN PO 03/25/18 22:00 04/24/18 21:59 Hydromorphone HCl (Dilaudid Inj) 0.5 mg Q4H PRN IV 03/25/18 23:00 04/08/18 22:59 Cholecalciferol (Vitamin D Tab) 1,000 inter.unit DAILY PO 03/27/18 09:00 04/26/18 08:59 03/31/18 09:14 1,000 INTER.UNIT Furosemide (Lasix Tab) 20 mg DAILY PO 03/27/18 09:00 04/26/18 08:59 03/31/18 08:38 20 MG Fish Oil ([place]-3 (Purified Fish Oil) Cap) 1 gm DAILY PO 03/27/18 09:00 04/26/18 08:59 03/31/18 08:38 1 GM Tramadol HCl (Ultram Tab) 50 mg Q4H PRN PO 03/27/18 11:30 04/26/18 11:29 Sodium Chloride (Sodium Chloride Tab) 1 gm BID PO 03/28/18 20:00 04/27/18 19:59 03/31/18 20:27 1 GM Loperamide HCl (Imodium Cap) 2 mg Q4 PRN PO 03/29/18 13:30 04/28/18 13:29 Lisinopril (Zestril Tab) 40 mg QAM PO 04/01/18 08:00 04/27/18 08:59 Objective Vital Signs Date Time Temp Pulse Resp B/P (MAP) Pulse Ox O2 Delivery O2 Flow Rate FiO2 03/31/18 16:00 Room Air 03/31/18 14:53 36.6 62 20 155/84 (107) 91 03/31/18 09:00 Room Air 03/31/18 07:27 36.6 61 18 151/81 (104) 93 03/31/18 00:00 Room Air 03/30/18 22:54 36.7 66 18 162/83 (109) 91 Room Air Physical Exam General Appearance: WD/WN, no apparent distress Eyes: normal inspection, EOMI, sclerae normal ENT: normal ENT inspection, hearing grossly normal, pharynx normal Neck: supple, no adenopathy, no JVD, trachea midline Respiratory/Chest: chest non-tender, lungs clear, normal breath sounds, no respiratory distress, no accessory muscle use Cardiovascular: regular rate, rhythm, no edema, no gallop, no JVD, no murmur Abdomen: normal bowel sounds, non tender, soft, no organomegaly Extremities: normal range of motion, non-tender, normal inspection, no pedal edema, no calf tenderness Neurologic/Psychiatric: 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, no motor/sensory deficits, alert, normal mood/affect, oriented x 3 Skin: normal color, warm/dry, no rash Laboratory Results Last 24 Hours Test 03/31/18 09:19 Sodium Level 132 mmol/L Potassium Level 4.0 mmol/L Chloride Level 97 mmol/L Carbon Dioxide Level 29 mmol/L Anion Gap 6.0 mmol/L Blood Urea Nitrogen 10 mg/dl Creatinine 0.87 mg/dl Est Creatinine Clear Calc Drug Dose 51.1 ml/min Estimated GFR () 70.9 Estimated GFR (Non- 61.2 BUN/Creatinine Ratio 11.0 Random Glucose 180 mg/dl Calcium Level 9.1 mg/dl Assessment and Plan 82 y/o admitted on March 25, 2018 for possible gastritis with nausea, vomiting , diarrhea and back and flank pain. She has past medical history of HTN, hypothyroid, colon CA, chronic sigmoid diverticulitis, TAVR 07/14. In the emergency room a CT of the abdomen confirms chronic sigmoid diverticulosis without evidence of diverticulitis. Hyponatremia, hypokalemia due to vomiting and diarrhea prior to admission stool frequency slowing down, slightly more formed, no diarrhea today stopped HCTZ in setting of hyponatremia, would not resume on discharge hypomagnesemia, resolved with IV replacement sodium stable at 132 today, continue NaCl tablets Chronic diarrhea, three weeks never had diarrhea like this before, lead to hyponatremia of 116 and hypokalemia, hypomagnesemia C diff negative x 2 samples, no colitis seen on CT scan Giardia and Cryptosporidium negative, Norovirus pending appreciate GI consultation, will need colonoscopy once stable as outpatient add Imodium PRN for loose stools HTN: BP up into the 170's systolic at times, will increase Lisinopril to 40mg daily, continue Toprol at current dose, no room to titrate since HR in 60's History of TAVR, Hypothyroidism , stable continue current medications Back and flank pain are likely the result of a compression fracture sustained on 03/06 2018 LUQ is no longer tender PT/OT ordered - can return to the [facility] with therapy Full code - Heparin prophylaxis again, therapy recommends return to [place] with PT patient very nervous and scared, does not agree that she can go back [facility] may be able to take for short stay, she is Medicare, they are tight on beds currently likely here over the weekend unless she feels stronger and wants to go back to [place] Continued [facility] stay due to: multiple IV medications needed Discharge planning: home
[2018-03-31 23:06] VITALS: BP 148/81; PULSE 60; TEMP 37.1; O2SAT 94
[2018-04-01] MEDS: LEVOTHYROXINE 125 MCG TAB PO SCH (06:19)
[2018-04-01 08:08] VITALS: BP 150/83; PULSE 63; TEMP 36.8; O2SAT 92
--- NOTE | 2018-04-01 08:33 | PROGRESS NOTE ---
DATE: 04/01/2018 The patient is having 0-2 bowel movements a day at this point. All her stool studies have returned negative except for the Norovirus, which is still pending at this time. Cryptosporidium and Giardia antigens were negative. Her main issue now is of disposition. She is relatively weak and may need to have some kind of assistance or a facility upon discharge until she gets back to her baseline. At this point, there is nothing more to offer her from the GI standpoint. We will hopefully be able to arrange for a colonoscopy at some point as an outpatient when she recovers back to her baseline.
[2018-04-01] MEDS: LISINOPRIL 20 MG TAB PO SCH (09:00)
[2018-04-01] MEDS: SODIUM CHLORIDE 1 GM TAB PO SCH ×2 (09:01→19:55)
[2018-04-01] MEDS: CHOLECALCIFEROL 1000 INTER.UNIT TAB PO SCH (09:01)
[2018-04-01] MEDS: PAROXETINE 20 MG TAB PO SCH (09:02)
[2018-04-01] MEDS: ASPIRIN 81 MG ECTAB PO SCH (09:02)
[2018-04-01] MEDS: OMEGA-3 (PURIFIED FISH OIL) 1 GM CAP PO SCH (09:03)
[2018-04-01] MEDS: FUROSEMIDE 20 MG TAB PO SCH (09:03)
[2018-04-01] MEDS: CLOPIDOGREL BISULFATE 75 MG TAB PO SCH (09:04)
[2018-04-01] MEDS: METOPROLOL TARTRATE 50 MG TAB PO SCH ×2 (09:05→21:02)
[2018-04-01] MEDS: HEPARIN SOD 5000 UNIT/0.5 ML CARP SQ SCH ×2 (09:06→17:07)
[2018-04-01] MEDS ORDERED: AMLODIPINE BESYLATE 5 MG TAB PO ONE (12:11)
[2018-04-01] MEDS ORDERED: FUROSEMIDE 20 MG TAB PO PRN (12:15)
--- NOTE | 2018-04-01 12:53 | PROGRESS NOTE ---
DATE: 04/01/2018 HISTORY OF PRESENT ILLNESS: Mrs. Magana is a very pleasant 82-year-old white female with a history of hypertension, colon cancer, aortic valvular disease status post TAVR in June 2017, hyponatremia, hypothyroidism, osteoporosis with L1 compression fracture, and a history of stage II colon cancer in 2008, who presented acutely to [facility] Emergency Room on 03/25/2018, complaining of persistent abdominal pain over the preceding days, nausea, poor appetite, vomiting, and generalized weakness. She has then had persistent diarrhea since. All of her stool studies have been negative including testing for giardiasis, Shigella, Salmonella, campylobacter, enteric pathogens, etc. Her norovirus titer is still pending. Fortunately, her diarrhea has slowed down. She has only had 2 bowel movements so far today, and they have been more formed. She offers no complaints at the present time. She is no longer having any nausea or vomiting. Her abdomen is not tender or painful. Her appetite has improved. Her hypokalemia and hypomagnesemia have been corrected. She has persistent hyponatremia at this time. Renal function has been stable. She has been evaluated by Dr. Mauro in gastroenterology. He feels that she needs to regain her strength and conditioning from her current illness, and then pursue colonoscopy as an outpatient in the future weeks to months. MEDICATIONS: 1. Lisinopril 40 mg daily. 2. Loperamide 2 mg every 4 hours as needed for diarrhea. 3. Sodium chloride tablet 1 gram b.i.d. 4. Tramadol 50 mg p.o. q. 4 hours p.r.n. for pain. 5. Vitamin D 1000 IUs daily. 6. Lasix 20 mg daily (she historically takes this only as needed when she is at home), and it may be contributing to her hyponatremia. 7. Fish oil capsules 1 gram daily. 8. Trazodone 75 mg at bedtime. 9. Aspirin 81 mg daily. 10. Plavix 75 mg daily. 11. Metoprolol tartrate 50 mg b.i.d. 12. Paxil 10 mg daily. 13. Levothyroxine 125 mcg daily. 14. Subcutaneous heparin 5000 units q. 8 hours. 15. Dilaudid 0.5 mg q. 4 hours p.r.n. for pain. 16. Tylenol 650 mg p.o. q. 4 hours p.r.n. for pain or fever. 17. Maalox Max p.r.n. 18. Milk of magnesia p.r.n. 19. Zofran 4 mg IV q. 6 hours p.r.n. for nausea. 20. MiraLax powder 17 grams daily. 21. [place] 5/325 one tablet every 6 hours as needed for pain. ALLERGIES: 1. METFORMIN. 2. NIACIN. 3. POLLEN. 4. MOLDS. 5. BEE STINGS. PHYSICAL EXAMINATION: VITAL SIGNS: Temperature is 36.8 degrees Celsius, pulse is 63 and regular, respiratory rate is 18 and unlabored, blood pressure is 150/83, SpO2 is 92% on room air. GENERAL: The patient is in no acute distress. HEENT: Head is atraumatic, normocephalic. EOMs intact. Sclerae are anicteric. Face is symmetric. No perioral cyanosis. Mucous membranes moist. NECK: Without JVD. The carotid upstrokes +2 bilaterally. CHEST AND LUNGS: Clear to auscultation throughout all lung hwang, no wheezes, rales or rhonchi. CARDIOVASCULAR: S1 and S2 are regular with a grade 1/6 basal systolic murmur heard best at the right second intercostal space. Does not appear to radiate. No diastolic murmurs. No obvious gallops or rubs. PMI is nondisplaced. No lifts, heaves, or thrills. No abdominal, aortic or renal bruits. ABDOMEN: Bowel sounds are present. Slightly tender to palpation diffusely. No guarding or rigidity. No rebound tenderness. EXTREMITIES: Without clubbing, cyanosis, or edema. Calves are soft, nontender. NEUROLOGIC: The patient is awake, alert, and interactive. Answers questions appropriately. Speech is clear. Normal movement in all 4 extremities. The patient has been ambulating with a wheeled walker and completed several laps around the unit today as per patient's daughter. I did not actually see her walking. LABORATORIES: Sodium is 132 mmol/L, potassium 4.0 mmol/L. BUN is 10 mg/dL, creatinine 0.87 mg/dL. Random glucose 180 mg/dL. Cryptosporidium antigen is not detected. Giardia antigen not detected. Norovirus is pending. Stool culture for enteric pathogens is negative. C. diff toxin assay is negative. No white blood cells were present in her fecal smear. ASSESSMENT: 1. Nausea, vomiting, and diarrhea - all have improved. 2. Persistent hyponatremia. 3. Resolved hypokalemia. 4. Resolved hypomagnesemia. 5. History of stage II colon cancer in 2008. 6. Aortic valve disease, status post TAVR in June 2017. 7. Hypertension, not adequately controlled. 8. Generalized weakness and deconditioning, likely secondary to electrolyte disturbances, decreased activities, etc. PLAN: 1. The patient has not had any further nausea or vomiting. Her bowel movements have slowed down drastically. She has only had 2 bowel movements today and they were formed for the most part. Norovirus titer is pending, but otherwise stool studies have been unremarkable for any enteric pathogens. 2. Continue antidiarrheal medicines as necessary. 3. Plan on pursuing colonoscopy as an outpatient down the road. She may have a condition such as collagenous colitis which could promote diarrhea. 4. Continue Lisinopril 40 mg daily. 5. Change Lasix to 20 mg daily as needed for edema. 6. Begin Amlodipine 5 mg daily, which will lower her blood pressure more effectively than a low dose loop diuretic, and it may slow down her GI motility. 7. Encouraged her to continue ambulating in the hallways to regain some of her strength and conditioning. 8. The patient is currently a resident at [facility] in the independent living section. Consider possible rehabilitation stay depending on how she does through the weekend. 9. We will continue to follow her along while hospitalized. Attending Attestation - Pt seen/examined, chart reviewed, care plan d/w SHANNON Logan. I agree w/ the byrd components of his documentation. Pt w/o nausea, emesis, diarrhea, abd pain. Eating well. Ambulating well. Serum Na 132 VSS no fever gen - nad, obese neck - no JVD mouth - MMM heart - RRR lungs - CTA b/l abd - soft, NT, ND, BS+, no HSM ext - no edema A/P: 1. recent severe hyponatremia - likely multifactorial - resolved or about resolved w/ stable Na x 3 days. 2. diarrhea - resolved, w/u negative for enteric pathogens; viral? non- infectious? 3. HTN - agree w/ [facility] institution. Agree w/ holding HCTZ. PT, OT evals and if doing well can return to the [place] tomorrow J MELANI GOETZ [facility]
[2018-04-01 15:07] VITALS: BP 151/74; PULSE 64; TEMP 36.8; O2SAT 94
[2018-04-01 19:56] VITALS: BP 91/66; PULSE 76
[2018-04-01 21:01] VITALS: BP 150/80; PULSE 72
[2018-04-01] MEDS: TRAZODONE HCL 50 MG TAB PO SCH (21:03)
[2018-04-01 22:19] VITALS: BP 148/79; PULSE 68; TEMP 36.8; O2SAT 95
[2018-04-02] MEDS: HEPARIN SOD 5000 UNIT/0.5 ML CARP SQ SCH ×2 (00:53→08:07)
[2018-04-02] MEDS: LEVOTHYROXINE 125 MCG TAB PO SCH (05:55)
[2018-04-02 07:55] VITALS: BP 171/80; PULSE 60; TEMP 36.1; O2SAT 94
[2018-04-02] MEDS: OMEGA-3 (PURIFIED FISH OIL) 1 GM CAP PO SCH (07:57)
[2018-04-02] MEDS: LISINOPRIL 20 MG TAB PO SCH (07:58)
[2018-04-02] MEDS: PAROXETINE 20 MG TAB PO SCH (07:58)
[2018-04-02] MEDS: METOPROLOL TARTRATE 50 MG TAB PO SCH (07:59)
[2018-04-02] MEDS: SODIUM CHLORIDE 1 GM TAB PO SCH (07:59)
[2018-04-02] MEDS: CLOPIDOGREL BISULFATE 75 MG TAB PO SCH (07:59)
[2018-04-02] MEDS ORDERED: AMLODIPINE BESYLATE 5 MG TAB PO SCH (08:00)
[2018-04-02] MEDS: CHOLECALCIFEROL 1000 INTER.UNIT TAB PO SCH (08:00)
[2018-04-02] MEDS: ASPIRIN 81 MG ECTAB PO SCH (08:01)
[2018-04-02 10:17] LABS: CALCIUM 8.7 mg/dl (8.5-10.1); CREATININE 0.85 mg/dl (0.60-1.20); POTASSIUM 3.8 mmol/L (3.5-5.1)
[2018-04-02] MEDS ORDERED: HYDR-5688 PO (14:34)
[2018-04-02] MEDS ORDERED: FURO-85 PO (14:34)
[2018-04-02] MEDS ORDERED: SDMC1 PO (14:34)
[2018-04-02] MEDS ORDERED: NRV5 PO (14:34)
--- NOTE | 2018-04-02 14:45 | Discharge Instructions ---
Discharge Instructions Date of Service April 02, 2018. Admission Reason for Admission: Hyponatremia (Very low sodium); Diarrhea. Discharge Discharge Diagnosis / Problem: Low Sodium - MUCH IMPROVED. Diarrhea - resolved. Discharge Goals Goal(s): Learn about illness, Diagnostic testing, Therapeutic intervention Activity Recommendations Activity Level: Up Ad Herlinda, Assistance Required . Additional Information Patient informed of condition: Yes Advance Directives: Yes DNR: No Level of Care: Other (Personal alf) Communicable Disease: No Prognosis: Improving Oxygen at (LPM): none Cervantes Catheter: No Instructions / Follow-Up Instructions / Follow-Up From Dr. Ordonez - You were treated for extremely low sodium during your stay. Your sodium level was 115 when you came to the hospital. It is now 132 and has been at this level for 3+ days. The low sodium was likely due to your HCTZ diuretic medication, diarrhea, and possibly other causes. At this time we recommend the following changes -- 1. STOP your lisinopril-HCTZ combination medication that you were previously taking. 2. START lisinopril 40mg once daily in the morning. This is for your blood pressure. 3. START amlodipine 5mg once daily in the morning. This is for your blood pressure. 4. TAKE NaCL tablet (salt tablet) 1 gram daily. START THIS TOMORROW on . Your blood work over the next 1-2 weeks will determine if you need to stay on this short-term or for a longer period of time. 5. START lasix (furosemide) 20mg once daily in the morning. TAKE your first dose TOMORROW on 04/03/18. 6. Diet - Would recommend that you follow a low lactose, low fiber diet to help your bowels and prevent diarrhea. The diarrhea was likely due to a stomach virus as all other testing was negative. If the diarrhea returns it is OK to take [id number] immodium as needed. 7. Follow-up - Please see Dr. Pham or any other provider at [facility] within 3 days. 8. [facility] - * you have shortness of breath, chest pain, or abdominal pain * fever over 100.4 degrees * your diarrhea returns and is severe * any other concerns Current Hospital Diet Patient's current hospital diet: Low Lactose Diet, AHA Diet (Heart Healthy) Discharge Diet Recommended Diet: AHA Diet (Heart Healthy), Low Fiber Diet, Low Lactose Diet Procedures Procedures Performed: CAT scan of abdomen showing diverticulosis but NO diverticulitis or other problems. Pending Studies Studies pending at discharge: no Physician Orders On Transfer Vital Signs: blood pressure checks twice daily for 5 days, then once daily thereafter. Additional Orders: BMP (basic metabolic panel), serum OSM, urine OSM, urine sodium, and uric acid level in 2-3 days for stability. POLST Discussion: Not Applicable Medical Emergencies . Who to Call and When: Medical Emergencies: If at any time you feel your situation is an emergency, please call 911 immediately. . Non-Emergent Contact Non-Emergency issues call your: Primary Care Provider Call Non-Emergent contact if: temperature is above 100.5, you have any medication questions . . "Provider Documentation" section prepared by Josh Ordonez. . Core Measure Problem Core Measures: None
[2018-04-02 14:47] VITALS: BP 171/80; PULSE 60; TEMP 36.1; O2SAT 94
[2018-04-02] MEDS ORDERED: LISI40TA PO (15:04)
--- NOTE | 2018-04-03 23:46 | Discharge Summary ---
Discharge Summary Date of Service April 03, 2018. Discharge Summary Admission Date: Mar 25, 2018 at 21:51 Discharge Date: April 02, 2018 Discharge Disposition: Personal care Principal Diagnosis: severe hyponatremia - resolved Problems/Secondary Diagnoses: 1. hypokalemia - resolved 2. hypomagnesemia - resolved 3. diarrhea - resolved 4. A[facility] and [facility] - [facility] 5. Stage II colon CA resected 2008 6. Diverticulosis 7. HTN 8. Hypothyroidism 9. Osteoporosis 10. CKD stage 2 11. L1 compression fracture 02/2018 Immunizations: Have You Had Influenza Vaccine: N/A Influenza Vaccine Date: Aug 22, 2008 History of Tetanus Vaccine?: Yes Tetanus Immunization Date: Jul 22, 2008 History of Pneumococcal: Yes Pneumococcal Date: Jul 22, 2004 History of Hepatitis B Vaccine: No Procedures: CT abd/pelvis - IMPRESSION: 1. Chronic sigmoid diverticulosis. 2. No evidence for diverticulitis. 3. The abdomen and pelvis is otherwise negative. Consultations: gastroenterology - Manuelito Mauro MD PT, OT Medication Reconciliation New Medications: Lisinopril (Zestril) 40 Mg Tab 1 TAB PO DAILY for 30 Days, #30 TAB 5 Refills Amlodipine Besylate (Amlodipine Besylate) 5 Mg Tab 5 MG PO QAM, #30 TAB 5 Refills for high blood pressure Sodium Chloride (Sodium Chloride) 1 Gm Tab 1 GM PO QAM, #30 TAB 0 Refills Changed Medications: Furosemide (Lasix) 20 Mg Tab 20 MG PO QAM, #30 TAB 2 Refills (Changed from: DIRECTED; Refills: ; Removed Instructions) Continued Medications: Aspirin (Aspirin Ec) 81 Mg Tab 81 MG PO DAILY Cholecalciferol (Vitamin D3) 1,000 Unit Tab 1000 UNIT PO DAILY for 90 Days, #9 TAB 3 Refills Clopidogrel (Plavix) 75 Mg Tab 75 MG PO DAILY, TAB Coenzyme Q10 (Ubidecarenone) (Co Q-10) 200 Mg Cap 200 MG PO DAILY Ystvvihevjz-Ffwexszvaky-Egyhop (Glucosamine Chondroitin M) 1 Tab Tab 2 TAB PO DAILY Hydrocodone/Acetaminophen 5MG/325MG ([place] 5MG/325MG) Tab 1 TABLET PO Q6 PRN for Pain, #30 TAB 0 Refills (This prescription has been renewed) PRN PAIN Lactobacillus-Inulin (Culturelle Digestive Heal) 1 Cap Cap 1 CAP PO DAILY Levothyroxine Sodium (Synthroid) 125 Mcg Tab 125 MCG PO DAILY, TAB Metoprolol Tartrate (Lopressor) (Lopressor) 50 Mg Tab 50 MG PO BID, TAB Sublimity-3 Fatty Acids (Fish Oil) 1,000 Mg Cap 1000 MG PO DAILY Paroxetine Hcl (Paxil) 10 Mg Tab 10 MG PO DAILY, TAB Trazodone Hcl (Trazodone) 50 Mg Tab 75 MG PO HS, TAB Discontinued Medications: Lisinopril/Hctz (Zestoretic 20MG/12.5MG) Tab 2 TAB PO DAILY, TAB Discharge Exam Physical Exam: General Appearance: no apparent distress ENT: pharynx normal Neck: no JVD Respiratory/Chest: lungs clear, no respiratory distress, no accessory muscle use Cardiovascular: regular rate, rhythm, no gallop, no murmur, normal peripheral pulses Abdomen / GI: normal bowel sounds, non tender, soft, no organomegaly Extremities: no pedal edema Neurologic/Psychiatric: alert, oriented x 3 Skin: no rash Hospital Course HISTORY OF PRESENT ILLNESS: 82 y/o female with history of HTN, hypothyroidism, colon CA, chronic sigmoid diverticulosis, TAVR 07/14 who presented with nausea, vomiting, diarrhea and back/flank pain. She had had diarrhea for 3 weeks and then developed nausea with vomiting over the past few days. She could not confirm a fever. She suffered a fall 03/06/2018 leading to an L1 compression fracture and had lower back and flank pain which she stated had been worsening over the past few days. She denied CP, SOB. Her urine output had been minimal, although she denied dysuria. Initial labs in the ER were notable for hypokalemia and hyponatremia with a sodium of 115. A CT of the abdomen confirmed chronic sigmoid diverticulosis without evidence of diverticulitis. HOSPITAL COURSE: The patient's hyponatremia was felt to be multifactorial in etiology. Recent diarrhea, vomiting, and use of HCTZ were likely all at play. She was treated with IV fluids early on in her stay with improvement in her sodium to the mid-120s. However, her serum sodium level then plateaued. From that point forward she was treated with salt tablets. Her serum sodium then sofya to 132 and remained at that level for 4 days prior to discharge. I cannot rule out that she has a small element of SIADH from chronic SSRI (paxil ) use or a reset osmostat. Her diarrhea resolved during this hospitalization without any specific treatment. She underwent an extensive work-up for this including stool culture, c. diff toxin, stool for norovirus & giardia, and cryptosporidium all of which were negative. She was seen in consult by Dr. Manuelito Mauro, [facility], who felt that perhaps her diarrhea was due to an unidentified viral process. [id number] it was recommended that she undergo an outpatient colonoscopy in light of her colon cancer history. Several changes were made in her blood pressure medication regimen. Her HCTZ was stopped. Amlodipine 5mg daily was added. Lastly, she was asked to take lasix 20mg once daily until she sees Dr. Pham in follow-up. At time of follow-up it is recommended that a repeat BMP, magnesium level, urine osm, serum osm, urine sodium, and uric acid level be obtained due to the hyponatremia. She was seen by PT/OT while hospitalized and cleared to return to [facility]. Total Time Spent: Greater than 30 minutes This includes examination of the patient, discharge planning, medication reconciliation, and communication with other providers. Discharge Instructions Please refer to the electronic Patient Visit Report (Discharge Instructions) for additional information. Follow-Up see Dr. Lisbet Pham at [facility] on 04/05/18 Additional Copies To Manuelito Mauro M.D.; Lisbet Pham M.D.; [facility]
== END 2018-04-02 15:52 | disposition home or self-care (01) | DRG 392 ==
LOC: C.EDB 19:04 → C.2T 21:51 → ENRESERV 21:59 → C.4E 03-27 09:34 → ENRESERV 03-27 10:16
PROVIDERS: ADMIT Internal Medicine; ATTEND Internal Medicine
DX: A08.4 Viral intestinal infection, unspecified (principal); E87.1 Hypo-osmolality and hyponatremia; S32.010A Wedge compression fracture of first lumbar vertebra, initial encounter for closed fracture; E87.6 Hypokalemia; I10 Essential (primary) hypertension; E03.9 Hypothyroidism, unspecified; E83.42 Hypomagnesemia; Z79.02 Long term (current) use of antithrombotics/antiplatelets; Z79.82 Long term (current) use of aspirin; Z79.899 Other long term (current) drug therapy; Z85.038 Personal history of other malignant neoplasm of large intestine; Z98.890 Other specified postprocedural states; Z88.8 Allergy status to other drugs, medicaments and biological substances; Z91.030 Bee allergy status; W19.XXXA Unspecified fall, initial encounter

== ENCOUNTER → 2018-07-15 | Outpatient (CLI) | payer OTHER, BC ==
[~2018-07-15] MED LIST changes: -CHOL1000 PO; -LISI-787 PO; +LISI40TA PO; +NRV5 PO
== END | disposition home or self-care (01) ==
LOC: C.LAB 09:12
PROVIDERS: ATTEND Family Medicine
DX: E87.1 Hypo-osmolality and hyponatremia (principal)

== ENCOUNTER 2020-10-08 20:54 | Inpatient (IN) ==
--- NOTE | 2020-10-08 21:39 | Emergency Department Note ---
Impression & Plan Hyponatremia, Fall, Contusion of knee, left, Abrasion of left wrist, Contusion of face, Hematoma ED Provider Note NAME: Tio RYDER AGE: 85 SEX: F : 1935 ARRIVES VIA: Ambulance INFORMANT: Patient, ED PROVIDER(S): Baljit Velázquez DO CHIEF COMPLAINT: Fall HPI: The patient is an 85-year-old female who presented to the emergency department by ambulance with her son for an evaluation after a fall. The patient fell on her left side striking the left side of her face. She also injured her left wrist and her left knee. She was able to ambulate afterwards but because the amount of swelling 911 was called. The patient was brought to the emergency department via BLS. She was placed in a rigid cervical collar. There is no definite loss of consciousness. The patient does take Plavix. Her son present with her and is very concerned that she did not take all of her medications as she is supposed to. She is concerned about anxiety. Patient's son states that he was notified earlier in the day that the patient was having severe anxiety. There is been no back pain. There was no definite seizure. ROS: See above HPI for pertinent positives & negatives. A total of 10 systems r eviewed and were otherwise negative. PAST MEDICAL HISTORY: See Below PAST SURGICAL HISTORY: See Below FAMILY HISTORY: See Below SOCIAL HISTORY: See Below HOME MEDICATIONS: See Below ALLERGIES: See Below VITALS: See Below PHYSICAL EXAMINATION: GENERAL: The patient is awake and alert. The patient is very anxious appearing. EYES: The conjunctivae are clear. There is significant periorbital ecchymosis around the left eye. The eye was open but she does have blindness in the left eye. The pupil does not appear to react but it is midsized. EARS, NOSE, MOUTH AND THROAT: There is severe ecchymosis and swelling over the left side of the face. The buccal mucosa is very taut and ecchymotic. NECK: The neck is nontender and supple. RESPIRATORY: Normal respiratory effort is noted there is no evidence of wheezing rhonchi or rales CARDIOVASCULAR: Regular rate and rhythm noted there no murmurs rubs or gallops normal S1 normal S2. GASTROINTESTINAL: The abdomen is soft. Abdomen is nontender. BACK: No midline tenderness or or step-off noted range of motion in flexion extension as well as rotation no signs of muscle spasm noted MUSCULOSKELETAL/EXTREMITIES: There is no evidence of gross deformity full range of motion is noted in the hips and shoulders. The patient does have an abrasion as well as ecchymosis to the ventral aspect the left wrist. There is no pain with range of motion testing. There is ecchymosis over the lateral aspect the left knee. There is pain with range of motion testing but no deformity. SKIN: There is no obvious evidence of any rash. Pedal edema was noted bilaterally. NEUROLOGIC: Patient is awake alert and oriented x3. Strength was symmetric. MEDICAL DECISION MAKING: The patient is an 85-year-old female who presented to the emergency department with family member after a fall. The patient had a very significant fall onto the left side of her body. She had very severe left facial injury as well as left wrist and left knee. The patient was treated with pain medication and IV fluids. The patient was reevaluated multiple times. I discussed the patient's laboratory and radiographic studies with her. Because of the large facial hematoma as well as the hyponatremia I do not feel the patient would be safe for discharge at this time. The [facility] hospitalist group was notified about the patient. Triage Nursing notes reviewed. Prior medical records reviewed Vital Signs: reviewed and remarkable for elevated blood pressure. Differential diagnosis: Fracture, dislocation, contusion, intra-abdominal, pneumothorax, intrathoracic, intracranial, neurologic, compartment syndrome, rhabdomyolysis, as well as other pathologies. ER treatment provided: See below Diagnostics interpreted by me: ECG: EKG was obtained in the emergency department. My interpretation is sinus rhythm at 74 bpm. First-degree AV block was noted. There was no ectopy. LVH was noted by voltage criteria. Inferior and low lateral ST segment depressions were noted. This was compared to a tracing from March 272018. No significant changes were noted. Cardiac Monitoring: An order was placed for continuous cardiac monitoring. The monitor shows a rate of 75 bpm with sinus rhythm. Laboratory studies: As stated above and show below. Imaging studies: See below Consultation(s): The [facility] hospitalist group was notified about this patient. Past Med/Surg History Medical History (Updated 10/09/20 @ 14:24 by Baljit Velázquez DO) Anxiety Blindness of left eye Cardiac murmur HX Chronic back pain SPASMS AND PAIN LOWER BACK Diverticular disease Hypertension Hypothyroidism HASHIMOTOS Macular degeneration Osteoarthritis SOB (shortness of breath) on exertion Stroke Surgical History History of bowel resection FOR [id number] YRS AGO NO CHEMO NO RADIATION History of colonoscopy X MULTIPLE History of heart valve replacement [facility] [place] 2017? History of tonsillectomy History of total knee replacement RIGHT Family History Daughter Family history of malignant hyperthermia DAUGHTER [facility] YRS [id number] HAS NEV ER BEEN TESTED Social History Smoking Status: Former smoker Tobacco Type: Cigarettes Second Hand Exposure: No; Hx Alcohol Use: No Hx Substance Use: No Preferred Language: Hebrew Communication Ability: Effective Progressive Die Maker Required: No Beliefs That Will Affect Care: None Current Living Situation: Personal Care Facility Current Living Situation Comment: [facility] Feels Safe at Home: Yes Assistive Devices: Glasses and Walker Allergies Allergies Allergy/AdvReac Type Severity Reaction Status Date / Time niacin Allergy Intermediate REDESS, Verified 10/08/20 23:40 SKIN BURNING pollen extracts Allergy Intermediate TREE Verified 10/08/20 23:40 POLLENS: PROFOUND ACHE/FATIGUE bee venom protein (honey bee) Allergy Mild SWELLING Verified 10/08/20 23:40 mold Allergy Mild SNEEZING Verified 10/08/20 23:40 metformin AdvReac Intermediate MYALGIA, Verified 10/08/20 23:40 FATIGUE Home Meds Home Medications Medication Instructions Recorded Confirmed Probiotic 3,000 mmu cells PO QAM 02/16/19 10/08/20 acetaminophen [Tylenol Extra 500 mg PO Q6H PRN 02/16/19 10/08/20 Strength] glucosam baca vck-gzmyqzork-B-Mn 1 cap PO BID 02/16/19 10/08/20 hydralazine 100 mg PO TID 02/16/19 10/08/20 levothyroxine 88 mcg PO DAILY 02/16/19 10/08/20 lisinopril 40 mg PO QAM 02/16/19 10/08/20 metoprolol tartrate 50 mg PO BID 02/16/19 10/08/20 paroxetine HCl 10 mg PO QAM 02/16/19 10/08/20 trazodone 75 mg PO HS 02/16/19 10/08/20 clopidogrel [Plavix] 75 mg PO DAILY 06/14/19 10/08/20 alprazolam 0.5 mg PO DAILY PRN 10/08/20 10/08/20 aspirin 81 mg PO DAILY 10/08/20 10/08/20 diclofenac sodium [Voltaren] 1 g TOP QID PRN 10/08/20 10/08/20 hydrochlorothiazide 25 mg PO DAILY 10/08/20 10/08/20 omeprazole 20 mg PO DAILY 10/08/20 10/08/20 paroxetine HCl 20 mg PO DAILY 10/08/20 10/08/20 sulfamethoxazole-trimethoprim 1 tab PO BID 10/08/20 10/08/20 [Bactrim DS] Results & Data (ED) Vital Signs Vital Signs - 24 hr 10/08/20 21:05 10/08/20 23:00 10/09/20 01:00 Temperature 37.2 C Temperature Source Oral Pulse Rate 80 Pulse Rate [Right Finger] 73 68 Pulse Rhythm [Right Finger] Regular Pulse Strength [Right Finger] Normal Respiratory Rate 18 16 18 Respiratory Depth Normal Normal Normal Blood Pressure 201/83 H Blood Pressure [Right Arm] 185/92 H 137/50 L Blood Pressure Mean 122 Blood Pressure Mean [Right Arm] 123 79 Blood Pressure Position Right Lateral Blood Pressure Position [Right Arm] Lying Lying Pulse Oximetry 95 96 96 Oxygen Delivery Method Room Air Room Air Room Air Sepsis Recent Fever Within 48 Hours No Sepsis New/Unexplained Change in Mental Status No Sepsis Action Taken by Nursing No Action Required Home Medications Current Medication List: was personally reviewed by me Laboratory Data Attestation: I reviewed the patient's lab results. Result diagrams: 10/08/20 22:17 10/09/20 06:03 Lab Results 10/08/20 10/08/20 10/08/20 Range/Units 22:17 22:17 22:17 WBC 6.02 (4.8-10.8) K/uL RBC 4.66 (4.2-5.4) M/uL Hgb 14.5 (12.0-16.0) g/dL Hct 41.6 (37-47) % MCV 89.3 (80-100) fL MCH 31.1 (25-34) pg MCHC 34.9 (32-36) g/dL RDW Std Deviation 41.3 (36.4-46.3) fL RDW Coeff of Nara 12.7 (11.5-14.5) % Plt Count 226 (130-400) K/uL MPV 10.2 (7.4-10.4) fL Immature Gran % (Auto) 0.3 % Neut % (Auto) 75.8 % Lymph % (Auto) 16.1 % Union % (Auto) 7.6 % Eos % (Auto) 0.2 % Baso % (Auto) 0.0 % Neut # (Auto) 4.56 (1.4-6.5) K/uL Lymph # (Auto) 0.97 L (1.2-3.4) K/uL Union # (Auto) 0.46 (0.11-0.59) K/uL Eos # (Auto) 0.01 (0-0.5) K/uL Baso # (Auto) 0.00 (0-0.2) K/uL Immature Gran # (Auto) 0.02 (0.00-0.02) K/uL PT 11.4 (9.0-12.0) Seconds INR 1.1 (0.9-1.1) APTT 29.1 (21.0-31.0) Seconds PTT Ratio 1.0 Sodium 123 L (136-145) mmol/L Potassium 3.7 (3.5-5.1) mmol/L Chloride 91 L (98-107) mmol/L Carbon Dioxide 24 (21-32) mmol/L Anion Gap 8.0 (3-11) BUN 9 (7-18) mg/dl Creatinine 0.82 (0.6-1.2) mg/dl Est Cr Clr Drug Dosing 50.9 ml/min Est GFR ( Amer) 74.6 Est GFR (Non-Af Amer) 64.3 BUN/Creatinine Ratio 10.9 (10-20) Glucose 142 H (70-99) mg/dl Osmolality (280-300) mOsm/kg Calcium 8.8 (8.5-10.1) mg/dl Magnesium 1.6 L (1.8-2.4) mg/dl Total Bilirubin 0.5 (0.2-1) mg/dl AST 23 (15-37) U/L ALT 20 (12-78) U/L Alkaline Phosphatase 59 (45-117) U/L Troponin I < 0.015 (0-0.045) ng/ml Total Protein 7.1 (6.4-8.2) gm/dl Albumin 3.7 (3.4-5.0) gm/dl Globulin 3.4 (2.5-4.0) gm/dl Albumin/Globulin Ratio 1.1 (0.9-2) Lipase 118 (73-393) U/L Urine Osmolality (500-800) mOsm/kg Ur Random Sodium mmol/L 10/08/20 10/09/20 10/09/20 Range/Units 22:19 00:14 00:14 WBC (4.8-10.8) K/uL RBC (4.2-5.4) M/uL Hgb (12.0-16.0) g/dL Hct (37-47) % MCV (80-100) fL MCH (25-34) pg MCHC (32-36) g/dL RDW Std Deviation (36.4-46.3) fL RDW Coeff of Nara (11.5-14.5) % Plt Count (130-400) K/uL MPV (7.4-10.4) fL Immature Gran % (Auto) % Neut % (Auto) % Lymph % (Auto) % Union % (Auto) % Eos % (Auto) % Baso % (Auto) % Neut # (Auto) (1.4-6.5) K/uL Lymph # (Auto) (1.2-3.4) K/uL Union # (Auto) (0.11-0.59) K/uL Eos # (Auto) (0-0.5) K/uL Baso # (Auto) (0-0.2) K/uL Immature Gran # (Auto) (0.00-0.02) K/uL PT (9.0-12.0) Seconds INR (0.9-1.1) APTT (21.0-31.0) Seconds PTT Ratio Sodium (136-145) mmol/L Potassium (3.5-5.1) mmol/L Chloride (98-107) mmol/L Carbon Dioxide (21-32) mmol/L Anion Gap (3-11) BUN (7-18) mg/dl Creatinine (0.6-1.2) mg/dl Est Cr Clr Drug Dosing ml/min Est GFR ( Amer) Est GFR (Non-Af Amer) BUN/Creatinine Ratio (10-20) Glucose (70-99) mg/dl Osmolality 258 L (280-300) mOsm/kg Calcium (8.5-10.1) mg/dl Magnesium (1.8-2.4) mg/dl Total Bilirubin (0.2-1) mg/dl AST (15-37) U/L ALT (12-78) U/L Alkaline Phosphatase (45-117) U/L Troponin I (0-0.045) ng/ml Total Protein (6.4-8.2) gm/dl Albumin (3.4-5.0) gm/dl Globulin (2.5-4.0) gm/dl Albumin/Globulin Ratio (0.9-2) Lipase (73-393) U/L Urine Osmolality 451 L (500-800) mOsm/kg Ur Random Sodium 101 mmol/L Administered Medications Aspirin (Aspirin 81 Mg Ectab) 81 mg PO DAILY [facility] [place] Stop: 11/08/20 08:59 Last Admin: 10/09/20 07:50 Dose: 81 mg Documented by: [id number] Clopidogrel Bisulfate (Clopidogrel Bisulfate 75 Mg Tab) 75 mg PO DAILY [facility] Stop: 11/08/20 08:59 Last Admin: 10/09/20 07:50 Dose: 75 mg Documented by: [id number] Hydralazine HCl (Hydralazine Tab 50 Mg Tab) 100 mg PO TID [facility] Stop: 11/08/20 08:59 Last Admin: 10/09/20 13:47 Dose: 100 mg Documented by: [id number] Admin: 10/09/20 07:52 Dose: 100 mg Documented by: [id number] Lactobacillus Acidoph/Casei/Rhamnos (Advanced Probiotic 1250 Mg Capsule) 2 cap PO QAM [facility] Stop: 11/08/20 08:59 Last Admin: 10/09/20 07:50 Dose: 2 cap Documented by: [id number] Levothyroxine Sodium (Levothyroxine Sodium 88 Mcg Tablet) 88 mcg PO DAILYBB [facility] [place] Stop: 11/08/20 06:29 Last Admin: 10/09/20 05:37 Dose: 88 mcg Documented by: [id number] Lisinopril (Lisinopril 40 Mg Tab) 40 mg PO QAM [facility] Stop: 11/08/20 08:59 Last Admin: 10/09/20 07:50 Dose: 40 mg Documented by: [id number] Metoprolol Tartrate (Metoprolol Tartrate 50 Mg Tab) 50 mg PO BID [facility] Stop: 11/08/20 08:59 Last Admin: 10/09/20 07:50 Dose: 50 mg Documented by: [id number] Pantoprazole Sodium (Pantoprazole 40 Mg Tab) 40 mg PO DAILY [facility] Stop: 11/08/20 08:59 Last Admin: 10/09/20 07:51 Dose: 40 mg Documented by: [id number] Paroxetine HCl (Paroxetine Hcl 10 Mg Tab) 10 mg PO QAM [facility] [place] Stop: 11/08/20 08:59 Last Admin: 10/09/20 07:49 Dose: 10 mg Documented by: [id number] Paroxetine HCl (Paroxetine Hcl 20 Mg Tab) 20 mg PO DAILY [facility] Stop: 11/08/20 08:59 Last Admin: 10/09/20 07:49 Dose: 20 mg Documented by: [id number] Sodium Chloride (Sodium Chloride 1 Gm Tablet) 2 gm PO BID [facility] Stop: 11/08/20 08:59 Last Admin: 10/09/20 08:09 Dose: 2 gm Documented by: [id number] Discontinued Medications Fentanyl Citrate (Fentanyl Citrate 100 Mcg/2 Ml Vial) 50 mcg IV Q15M PRN PRN Reason: Pain Stop: 10/22/20 22:33 Last Admin: 10/08/20 22:40 Dose: 50 mcg Documented by: [id number] Lorazepam (Ativan) 0.5 mg in 1 mls @ 1 mls/min IV NOW STA Stop: 10/08/20 23:51 Last Admin: 10/09/20 00:38 Dose: 1 mls/min Documented by: [id number] Ondansetron HCl (Ondansetron Inj 2 Mg/Ml 2 Ml Vial) 4 mg IV NOW STA Stop: 10/08/20 22:35 Last Admin: 10/08/20 22:40 Dose: 4 mg Documented by: [id number] Imaging Data Attestation: I personally reviewed and interpreted this imaging study as follows: My Impression: X-ray of the left wrist was obtained in the emergency department. My interpretation is no acute fracture, no acute disease. 1 view of the pelvis x-ray was obtained in the emergency department. My interpretation is no acute fracture, no acute disease. X-ray of the left knee was obtained in the emergency department. My interpretation is there were signs of osteoarthritis noted. Subchondral cyst were noted. No acute fracture was appreciated. 1 view of the chest x-ray was obtained in the emergency department. My interpretation is atelectasis at the left base. No definite infiltrate, no free air, there was a stent noted in the retrocardiac region. This was compared to a chest x-ray from March 272018. No significant changes were noted. Radiologist's Impression: Patient: Tio RYDER (Female) : 31 Status: ER Date: 10/08/20 23:18 Room #: History: fell and hit head Slices: 58 Priors: Tech: Armani Pennington @ [phone] Exams: CT HEAD Contrast: Accession Numbers: [id number] Preliminary Findings Only See Final Report For Complete Findings CT HEAD: No acute intracranial hemorrhage, extra-axial fluid collection, mass or mass- effect. No acute territorial infarct. Extensive soft tissue swelling in the left facial and left periorbital regions. No fracture visualized. Radiologist: Hannah Zayas M.D. Study ready at 23:24 and initial results transmitted at 23:29 Patient: Tio RYDER (Female) : 31 Status: ER Date: 10/08/20 23:15 Room #: History: FELL AND HIT HEAD Slices: 800 Priors: Tech: Armani Pennington @ [phone] Exams: CT FACIAL Contrast: Accession Numbers: [id number] Preliminary Findings Only See Final Report For Complete Findings CT FACIAL: No acute facial fracture. Left facial soft tissue hematoma with extensive surrounding edema and soft tissue swelling. Mastoid air cells and paranasal sinuses without air-fluid level or significant opacification. Radiologist: Hannah Zayas M.D. Study ready at 23:33 and initial results transmitted at 23:41 Patient: Tio RYDER (Female) : 31 Status: ER Date: 10/08/20 23:09 Room #: History: FALL Slices: 841 Priors: Tech: Ryan Vail @ [phone] Exams: CT C SPINE Contrast: Accession Numbers: [id number] Preliminary Findings Only See Final Report For Complete Findings CT C SPINE: No acute fracture or traumatic malalignment of the cervical spine. Multilevel disc disease and facet hypertrophic changes throughout the cervical spine. Prominent left facial soft tissue swelling/hematoma, seen to better advantage on CT face performed same day and dictated separately. Radiologist: Hannah Zayas M.D. Study ready at 23:13 and initial results transmitted at 23:25 Blood Pressure Blood Pressure Findings: Elevated blood pressure Blood Pressure Disposition: further management by hospitalist Discharge Plan Visit Data Chief Complaint: Fall Stated Complaint: FALL ED Provider: Baljit Velázquez Discharge Problem: Hyponatremia, Fall, Contusion of knee, left, Abrasion of left wrist, Contusion of face, Hematoma Patient Disposition: Admitted As Inpatient Discharge Instructions Interventions: ED Discharge Assessment Last Done: 10/09/20 03:29 Discharge Problem: Fall Qualifiers: Encounter type: initial encounter Qualified Code(s): W19.XXXA - Unspecified fall, initial encounter Contusion of knee, left Qualifiers: Encounter type: initial encounter Qualified Code(s): S80.02XA - Contusion of left knee, initial encounter Abrasion of left wrist Qualifiers: Encounter type: initial encounter Qualified Code(s): S60.812A - Abrasion of left wrist, initial encounter Contusion of face Qualifiers: Encounter type: initial encounter Qualified Code(s): S00.83XA - Contusion of other part of head, initial encounter
[2020-10-08] MEDS ORDERED: fentaNYL citrate 100 MCG/2 ML VIAL IV PRN (22:34)
[2020-10-08] MEDS ORDERED: ONDANSETRON INJ 2 MG/ML 2 ML VIAL IV STA (22:34)
[2020-10-08 22:36] LABS: Eosinophils # (auto) 0.01 K/uL (0-0.5); Eosinophils % (auto) 0.2 %; Hematocrit (blood only) 41.6 % (37-47); Hemoglobin 14.5 g/dL (12.0-16.0); Immature Granulocytes # (auto) 0.02 K/uL (0.00-0.02); Immature Granulocytes % (auto) 0.3 %; Lymphocytes # (auto) 0.97 K/uL (1.2-3.4); Lymphocytes % (auto) 16.1 %; Mean Corpuscular Hemoglobin 31.1 pg (25-34); Mean Corpuscular Hgb Conc 34.9 g/dL (32-36); Mean Corpuscular Volume 89.3 fL (80-100); Mean Platelet Volume 10.2 fL (7.4-10.4); Monocytes # (auto) 0.46 K/uL (0.11-0.59); Monocytes % (auto) 7.6 %; Neutrophils # (auto) 4.56 K/uL (1.4-6.5); Neutrophils % (auto) 75.8 %; Platelet Count 226 K/uL (130-400); RDW Coefficient of Variation 12.7 % (11.5-14.5); RDW Standard Deviation 41.3 fL (36.4-46.3); Red Blood Count 4.66 M/uL (4.2-5.4); White Blood Count 6.02 K/uL (4.8-10.8)
[2020-10-08 22:51] LABS: Alanine Aminotransferase 20 U/L (12-78); Albumin Level 3.7 gm/dl (3.4-5.0); Aspartate Aminotransferase 23 U/L (15-37); BUN Creatinine Ratio 10.9 (10-20); Blood Urea Nitrogen 9 mg/dl (7-18); Calcium 8.8 mg/dl (8.5-10.1); Carbon Dioxide 24 mmol/L (21-32); Chloride 91 mmol/L (98-107); Creatinine Clr Calc Pharmacy 50.9 ml/min; Est GFR (African American) 74.6; Est GFR (Non-African American) 64.3; Glucose 142 mg/dl (70-99); Lipase 118 U/L (73-393); Potassium 3.7 mmol/L (3.5-5.1); Sodium 123 mmol/L (136-145)
[2020-10-08 22:53] LABS: INR 1.1 (0.9-1.1); Partial Thromboplastin Time 29.1 Seconds (21.0-31.0); Prothrombin Time 11.4 Seconds (9.0-12.0)
[2020-10-08 22:54] LABS: Albumin Globulin Ratio 1.1 (0.9-2); Alkaline Phosphatase 59 U/L (45-117); Bilirubin,Total 0.5 mg/dl (0.2-1); Globulin 3.4 gm/dl (2.5-4.0); Total Protein 7.1 gm/dl (6.4-8.2)
[2020-10-08] MEDS ORDERED: LORazepam 0.5 MG/1 ML VIAL IV STA (23:50)
[2020-10-08 23:58] LABS: Magnesium 1.6 mg/dl (1.8-2.4)
[2020-10-09 00:09] LABS: Troponin I < 0.015 ng/ml (0-0.045)
[2020-10-09] MEDS ORDERED: ALUMINUM/MAGNESIUM SUSP 30 ML UDC PO PRN (03:40)
[2020-10-09] MEDS ORDERED: ALPRAZolam 0.5 MG TABLET PO PRN (03:40)
[2020-10-09] MEDS ORDERED: ACETAMINOPHEN 500 MG TAB PO PRN (03:40)
[2020-10-09] MEDS ORDERED: MAGNESIUM HYDROXIDE SUSP 30 ML UDC PO PRN (03:40)
[2020-10-09] MEDS ORDERED: ACETAMINOPHEN 325 MG TAB PO PRN (03:40)
[2020-10-09] MEDS ORDERED: ONDANSETRON INJ 2 MG/ML 2 ML VIAL IV PRN (03:40)
--- NOTE | 2020-10-09 03:43 | History & Physical Report ---
Date of Service October 09, 2020 Assessment & Plan (1) Hyponatremia: Hyponatremia/SIADH- Sodium 123, serum osmolality 258, urine osmolality 451. Fluid restrict 1500 cc daily Sodium chloride 2 g p.o. twice daily Follow serial BMP and magnesium levels Hold HCTZ. Present on Admission?: Yes (2) SIADH (syndrome of inappropriate ADH production): See above Present on Admission?: Yes (3) HTN (hypertension): Hold HCTZ as noted above. Otherwise continue all home medications: Aspirin, clopidogrel, hydralazine, lisinopril and metoprolol tartrate. Present on Admission?: Yes (4) Hypothyroid: Continue levothyroxine sodium 88 mcg daily Present on Admission?: Yes (5) Fall: Mechanical fall. We will consult PT/OT prior to discharge Present on Admission?: Yes (6) Traumatic hematoma of face: Supportive therapy Present on Admission?: Yes (7) Contusion of knee, left: Supportive therapy Present on Admission?: Yes (8) Abrasion of left wrist: Supportive therapy Present on Admission?: Yes Admission and Anticipated Discharge Date Admission Date: October 09, 2020 History of Present Illness Chief Complaint: The patient presents to the emergency department via ambulance, after falling on her left side and striking the left side of her face, and injuring her left wrist and left knee Primary Care Provider: Lisbet Pham MD The patient is an 85-year-old female with a past medical history including hypertension, hypothyroidism, hyponatremia, osteoarthritis, anxiety, GERD, insomnia. She is presently finishing a course of Bactrim for urinary tract infection, reporting that the pelvic discomfort that she had is resolved. She reports that she was walking along this evening, and tripped and fell over her walker and landed on her left side of her face. Work-up in the emergency department included x-rays of wrist, chest x-ray, pelvis and knee, all of which were normal. She also underwent CT scans of cervical spine, face and head, which primarily showed a soft tissue hematoma on the left side. Laboratories revealed the following abnormalities: Sodium 123 with range 126-136, serum osmolality of 258, urine osmolality of 451, magnesium 1.6 and glucose 142. Allergies Allergy/AdvReac Type Severity Reaction Status Date / Time niacin Allergy Intermediate REDESS, Verified 10/08/20 23:40 SKIN BURNING pollen extracts Allergy Intermediate TREE Verified 10/08/20 23:40 POLLENS: PROFOUND ACHE/FATIGUE bee venom protein (honey bee) Allergy Mild SWELLING Verified 10/08/20 23:40 mold Allergy Mild SNEEZING Verified 10/08/20 23:40 metformin AdvReac Intermediate MYALGIA, Verified 10/08/20 23:40 FATIGUE Home Medications Home Medications Medication Instructions Recorded Confirmed Type Probiotic 3,000 mmu cells PO QAM 02/16/19 10/08/20 History acetaminophen [Tylenol Extra 500 mg PO Q6H PRN 02/16/19 10/08/20 History Strength] glucosam baca [id number]-[id number]-Mn 1 cap PO BID 02/16/19 10/08/20 History hydralazine 100 mg PO TID 02/16/19 10/08/20 History levothyroxine 88 mcg PO DAILY 02/16/19 10/08/20 History lisinopril 40 mg PO QAM 02/16/19 10/08/20 History metoprolol tartrate 50 mg PO BID 02/16/19 10/08/20 History paroxetine HCl 10 mg PO QAM 02/16/19 10/08/20 History trazodone 75 mg PO HS 02/16/19 10/08/20 History clopidogrel [Plavix] 75 mg PO DAILY 06/14/19 10/08/20 History alprazolam 0.5 mg PO DAILY PRN 10/08/20 10/08/20 History aspirin 81 mg PO DAILY 10/08/20 10/08/20 History diclofenac sodium [Voltaren] 1 g TOP QID PRN 10/08/20 10/08/20 History hydrochlorothiazide 25 mg PO DAILY 10/08/20 10/08/20 History omeprazole 20 mg PO DAILY 10/08/20 10/08/20 History paroxetine HCl 20 mg PO DAILY 10/08/20 10/08/20 History sulfamethoxazole-trimethoprim 1 tab PO BID 10/08/20 10/08/20 History [Bactrim DS] Past Med/Surg History Medical History (Updated 10/09/20 @ 03:41 by Chandu Jacobo MD) Anxiety Blindness of left eye Cardiac murmur HX Chronic back pain SPASMS AND PAIN LOWER BACK Diverticular disease Hypertension Hypothyroidism HASHIMOTOS Macular degeneration Osteoarthritis SOB (shortness of breath) on exertion Stroke Surgical History History of bowel resection FOR [id number] YRS AGO NO CHEMO NO RADIATION History of colonoscopy X MULTIPLE History of heart valve replacement [facility]? History of tonsillectomy History of total knee replacement RIGHT Family History Daughter Family history of malignant hyperthermia DAUGHTER LALITA TODD-MANY YRS [id number] HAS NEVER BEEN TESTED Social History Smoking Status: Former smoker Tobacco Type: Cigarettes Second Hand Exposure: No; Hx Alcohol Use: Yes Alcohol type: wine Hx Substance Use: No Preferred Language: Slovenian Communication Ability: Effective Welt Rander Required: No Beliefs That Will Affect Care: None Current Living Situation: Alone Current Living Situation Comment: [facility] Feels Safe at Home: Yes Assistive Devices: Glasses and Walker Review of Systems Review of Systems: The patient denies chest pain, palpitations, shortness of breath, dyspnea on exertion, cough, lower extremity swelling, sore throat, fevers, chills, sweats, weight change, fatigue, nausea, vomiting, diarrhea , constipation, abdominal pain, pelvic pain, blood in urine or stool, dysuria, urinary frequency or urgency, loss of consciousness, imbalance, generalized arthralgias or myalgias, back or neck pain, or night sweats. The review of systems is otherwise negative other than for that already noted above, and at least 10 systems have been reviewed. Physical Exam Physical Exam: The patient is awake, alert and oriented 3, well developed and well nourished, left facial hematoma and edema causing closure of left lids, lying in bed and in no acute distress. HEENT--PERRL, EOMI, mucous membranes and oropharynx dry. Neck--supple. No JVD. No bruits. Thyroid normal, trachea midline, no adenopathy. Heart--normal S1 and S2. No murmurs, rubs or gallops. Lungs--clear bilaterally, no respiratory distress, no accessory muscle use. Abdomen--normal bowel sounds and soft. Nontender. Nondistended, no hernias or masses, no organomegaly. Extremities--no cyanosis or clubbing. No edema. Dermatologic--as above Neurologic--cranial nerves II through XII grossly intact. Rheumatologic--normal range of motion. Psychiatric--normal affect. Results & Data Results & Data ([facility]) Vital Signs (Past 12 Hours) Vital Signs Temp Pulse Pulse Resp BP BP Pulse Ox 10/09/20 03:29 67 16 137/50 L 95 10/09/20 01:00 68 18 137/50 L 96 10/08/20 23:00 73 16 185/92 H 96 10/08/20 21:05 99.0 F 80 18 201/83 H 95 Laboratory Results Laboratory Results WBC 6.02 K/uL (4.8-10.8) 10/08/20 22:17 RBC 4.66 M/uL (4.2-5.4) 10/08/20 22:17 Hgb 14.5 g/dL (12.0-16.0) 10/08/20 22:17 Hct 41.6 % (37-47) 10/08/20 22:17 MCV 89.3 fL (80-100) 10/08/20 22:17 MCH 31.1 pg (25-34) 10/08/20 22:17 MCHC 34.9 g/dL (32-36) 10/08/20 22:17 RDW Std Deviation 41.3 fL (36.4-46.3) 10/08/20 22:17 RDW Coeff of Nara 12.7 % (11.5-14.5) 10/08/20 22:17 Plt Count 226 K/uL (130-400) 10/08/20 22:17 MPV 10.2 fL (7.4-10.4) 10/08/20 22:17 Immature Gran % (Auto) 0.3 % 10/08/20 22:17 Neut % (Auto) 75.8 % 10/08/20 22:17 Lymph % (Auto) 16.1 % 10/08/20 22:17 [place] % (Auto) 7.6 % 10/08/20 22:17 Eos % (Auto) 0.2 % 10/08/20 22:17 Baso % (Auto) 0.0 % 10/08/20 22:17 Neut # (Auto) 4.56 K/uL (1.4-6.5) 10/08/20 22:17 Lymph # (Auto) 0.97 K/uL (1.2-3.4) L 10/08/20 22:17 [place] # (Auto) 0.46 K/uL (0.11-0.59) 10/08/20 22:17 Eos # (Auto) 0.01 K/uL (0-0.5) 10/08/20 22:17 Baso # (Auto) 0.00 K/uL (0-0.2) 10/08/20 22:17 Immature Gran # (Auto) 0.02 K/uL (0.00-0.02) 10/08/20 22:17 PT 11.4 Seconds (9.0-12.0) 10/08/20 22:17 INR 1.1 (0.9-1.1) 10/08/20 22:17 APTT 29.1 Seconds (21.0-31.0) 10/08/20 22:17 PTT Ratio 1.0 10/08/20 22:17 Sodium 123 mmol/L (136-145) L 10/08/20 22:17 Potassium 3.7 mmol/L (3.5-5.1) 10/08/20 22:17 Chloride 91 mmol/L (98-107) L 10/08/20 22:17 Carbon Dioxide 24 mmol/L (21-32) 10/08/20 22:17 Anion Gap 8.0 (3-11) 10/08/20 22:17 BUN 9 mg/dl (7-18) 10/08/20 22:17 Creatinine 0.82 mg/dl (0.6-1.2) 10/08/20 22:17 Est Cr Clr Drug Dosing 50.9 ml/min 10/08/20 22:17 Est GFR ( Amer) 74.6 10/08/20 22:17 Est GFR (Non-Af Amer) 64.3 10/08/20 22:17 BUN/Creatinine Ratio 10.9 (10-20) 10/08/20 22:17 Glucose 142 mg/dl (70-99) H 10/08/20 22:17 Osmolality 258 mOsm/kg (280-300) L 10/08/20 22:19 Calcium 8.8 mg/dl (8.5-10.1) 10/08/20 22:17 Magnesium 1.6 mg/dl (1.8-2.4) L 10/08/20 22:17 Total Bilirubin 0.5 mg/dl (0.2-1) 10/08/20 22:17 AST 23 U/L (15-37) 10/08/20 22:17 ALT 20 U/L (12-78) 10/08/20 22:17 Alkaline Phosphatase 59 U/L (45-117) 10/08/20 22:17 Troponin I < 0.015 ng/ml (0-0.045) 10/08/20 22:17 Total Protein 7.1 gm/dl (6.4-8.2) 10/08/20 22:17 Albumin 3.7 gm/dl (3.4-5.0) 10/08/20 22:17 Globulin 3.4 gm/dl (2.5-4.0) 10/08/20 22:17 Albumin/Globulin Ratio 1.1 (0.9-2) 10/08/20 22:17 Lipase 118 U/L (73-393) 10/08/20 22:17 Urine Osmolality 451 mOsm/kg (500-800) L 10/09/20 00:14 Ur Random Sodium 101 mmol/L 10/09/20 00:14 Diagnostic Findings [facility] Patient: Tio RYDER (Female) : 31 Status: ER Date: 10/08/20 23:09 Room #: History: FALL Slices: 841 Priors: Tech: Ryan Vail @ [phone] Exams: CT C SPINE Contrast: Accession Numbers: [id number] Preliminary Findings Only See Final Report For Complete Findings CT C SPINE: No acute fracture or traumatic malalignment of the cervical spine. Multilevel disc disease and facet hypertrophic changes throughout the cervical spine. Prominent left facial soft tissue swelling/hematoma, seen to better advantage on CT face performed same day and dictated separately. Radiologist: Hannah Zayas M.D. Study ready at 23:13 and initial results transmitted at 23:25 *This report constitutes a preliminary interpretation only. Non-acute findings felt to be unrelated to the clinical presentation may not be discussed in this report. The study will be interpreted and a final report will be generated by the local Radiologist the following shift. To reach the hospital radiology department call [phone]. If a discrepancy is found between the preliminary and final interpretations of this study, please notify us via our Client Portal at [email or web address] under [email or web address] [email or web address].You can also fax this report with a description of the discrepancy, or include the final report, to our daytime fax number [phone].If faxing, please indicate the severity of discrepancy using one of the following categories: [ ] 1 - Agree/Informational [ ] 2 - Unlikely to Affect Management [ ] 3 - Possible Eventual Change of Management [ ] 4 - Probable Immediate Change of Management For all other patient related information, please fax us at [phone]. [id number] [facility] Patient: Tio RYDER (Female) : 31 Status: ER Date: 10/08/20 23:15 Room #: History: FELL AND HIT HEAD Slices: 800 Priors: Tech: Armani Pennington @ [phone] Exams: CT FACIAL Contrast: Accession Numbers: [id number] Preliminary Findings Only See Final Report For Complete Findings CT FACIAL: No acute facial fracture. Left facial soft tissue hematoma with extensive surrounding edema and soft tissue swelling. Mastoid air cells and paranasal s inuses without air-fluid level or significant opacification. Radiologist: Hannah Zayas M.D. Study ready at 23:33 and initial results transmitted at 23:41 *This report constitutes a preliminary interpretation only. Non-acute findings felt to be unrelated to the clinical presentation may not be discussed in this report. The study will be interpreted and a final report will be generated by the local Radiologist the following shift. To reach the hospital radiology department call [phone]. If a discrepancy is found between the preliminary and final interpretations of this study, please notify us via our Client Portal at [email or web address], under [email or web address].You can also fax this report with a description of the discrepancy, or include the final report, to our daytime fax number [phone].If faxing, please indicate the severity of discrepancy using one of the following categories: [ ] 1 - Agree/Informational [ ] 2 - Unlikely to Affect Management [ ] 3 - Possible Eventual Change of Management [ ] 4 - Probable Immediate Change of Management For all other patient related information, please fax us at [phone]. [id number] [facility] Patient: Tio RYDER (Female) : 31 Status: ER Date: 10/08/20 23:18 Room #: History: fell and hit head Slices: 58 Priors: Tech: ShuArmani ayala @ [phone] Exams: CT HEAD Contrast: Accession Numbers: [id number] Preliminary Findings Only See Final Report For Complete Findings CT HEAD: No acute intracranial hemorrhage, extra-axial fluid collection, mass or mass- effect. No acute territorial infarct. Extensive soft tissue swelling in the left facial and left periorbital regions. No fracture visualized. Radiologist: Hannah Zayas M.D. Study ready at 23:24 and initial results transmitted at 23:29 *This report constitutes a preliminary interpretation only. Non-acute findings felt to be unrelated to the clinical presentation may not be discussed in this report. The study will be interpreted and a final report will be generated by the local Radiologist the following shift. To reach the hospital radiology department call [phone]. If a discrepancy is found between the preliminary and final interpretations of this study, please notify us via our Client Portal at [email or web address], under [email or web address] [email or web address].You can also fax this report with a description of the discrepancy, or include the final report, to our [facility] fax number [phone].If faxing, please indicate the severity of discrepancy using one of the following categories: [ ] 1 - Agree/Informational [ ] 2 - Unlikely to Affect Management [ ] 3 - Possible Eventual Change of Management [ ] 4 - Probable Immediate Change of Management For all other patient related information, please fax us at [phone]. [id number] Code Status & VTE Plan Code Status Full code VTE Prophylaxis Plan VTE Prophylaxis will be ordered: Yes PG Care Time/CCT Total # of Minutes Spent Total Time Spent with Patient: Total time spent is greater than 50% in coordination of care (as documented) at patient's floor/unit and/or counseling patient: Coding Level of Care Code 67187 Initial Inpt Care Lvl 3 Diagnoses Hyponatremia E87.1 SIADH (syndrome of inappropriate ADH production) E22.2 HTN (hypertension) I10 Hypothyroid E03.9 Fall W19.XXXA Encounter type: initial encounter Traumatic hematoma of face S00.83XA Contusion of knee, left S80.02XA Encounter type: initial encounter Abrasion of left wrist S60.812A Encounter type: initial encounter (1) Fall Encounter type: initial encounter Qualified Code(s): W19.XXXA - Unspecified fall, initial encounter (2) Contusion of knee, left Encounter type: initial encounter Qualified Code(s): S80.02XA - Contusion of left knee, initial encounter (3) Abrasion of left wrist Encounter type: initial encounter Qualified Code(s): S60.812A - Abrasion of left wrist, initial encounter
[2020-10-09] MEDS: LEVOTHYROXINE SODIUM 88 MCG TABLET PO SCH (05:37)
[2020-10-09 06:56] LABS: Albumin Level 3.3 gm/dl (3.4-5.0); BUN Creatinine Ratio 11.9 (10-20); Calcium 8.5 mg/dl (8.5-10.1); Est GFR (Non-African American) 81.1; Potassium 3.5 mmol/L (3.5-5.1)
--- NOTE | 2020-10-09 06:59 | CT Scan Report ---
CT OF THE CERVICAL SPINE CLINICAL HISTORY: Neck pain status post trauma COMPARISON STUDY: No previous studies for comparison. CT DOSE: 946.37 mGy.cm TECHNIQUE: CT scan of the cervical spine was performed from the skull base to the thoracic inlet. Deborah ges are reviewed in the axial, sagittal, and coronal planes. IV contrast was not administered for thi s examination. A dose lowering technique was utilized adhering to the principles of ALARA. FINDINGS: The visualized portions of the lung apices reveal no evidence of pneumothorax. The prevertebral soft tissues are normal. No fractures or traumatic subluxations are visualized. There are multilevel degenerative changes. 3 mm of anterior listhesis of C7 on T1 is felt to be dege nerative. There is a prominent disc osteophyte complex at the C5-C6 level. There is a left perimaxillary soft tissue hematoma. IMPRESSION: No evidence of acute fracture or traumatic subluxation. ACT 112: Negative or not required by law. Electronically signed by: Barrett Kay M.D. 10/09/2020 6:58 AM
--- NOTE | 2020-10-09 07:04 | CT Scan Report ---
CT facial bones wo con CT DOSE: CLINICAL HISTORY: Facial pain status post trauma COMPARISON STUDY: No previous studies for comparison. TECHNIQUE: Helical images were acquired in the transverse plane. The study was reviewed and analyzed on the independent 3-D workstation. A dose lowering technique was utilized adhering to the principle s of ALARA. The pterygoid plates appear intact. The zygomatic arches appear intact. The globes appear intact. There is no evidence of orbital emphysema. The orbital nunez and floor appear intact. The mandibular condyles appear intact. There is a soft tissue hematoma in the anterior left premaxillary region. There is associated extensi ve soft tissue edema. IMPRESSION: 1. No acute facial fractures identified 2. Left perimaxillary soft tissue hematoma with surrounding edema. ACT 112: Negative or not required by law. Electronically signed by: Barrett Kay M.D. 10/09/2020 7:02 AM
--- NOTE | 2020-10-09 07:19 | XRay Report ---
LEFT WRIST 4 VIEWS CLINICAL HISTORY: Fall. Left wrist injury. FINDINGS: 4 views of the left wrist are obtained. No prior studies are available for comparison at th e time of dictation. The skeletal structures are osteopenic. No fracture is seen. Mild degenerative n arrowing is seen at the radiocarpal articulation. Mild osteoarthritic change is noted the first carpo metacarpal joint. Dorsal soft tissue swelling is noted. IMPRESSION: There is no radiographic evidence of acute fracture. Electronically signed by: Seven Rodgers M.D. 10/09/2020 7:18 AM
--- NOTE | 2020-10-09 07:24 | CT Scan Report ---
CT SCAN OF THE BRAIN WITHOUT IV CONTRAST CLINICAL HISTORY: Fall. COMPARISON STUDY: CT of the brain dated 03/27/2019. TECHNIQUE: Unenhanced axial CT scan of the brain is performed from the vertex to the skull base. A do se lowering technique was utilized adhering to the principles of ALARA. FINDINGS: Brain parenchyma: There are age-related involutional changes noting moderate subcortical and periven tricular microangiopathic change. There is no hemorrhage, mass effect, or evidence of acute territori al ischemia by CT criteria. Ferreira-white matter differentiation is preserved. No extra-axial fluid winifred ection is seen. Ventricles, sulci, cisterns: Prominent secondary to involutional change. Intracranial vasculature: There is atherosclerotic calcification of the cavernous carotid and vertebr al arteries. Calvarium: The skeletal structures are osteopenic. No depressed calvarial fracture is identified. Soft tissues: There is left periorbital, facial, and temporal scalp contusion/hematoma. Sinuses and mastoids: The visualized paranasal sinuses are clear. The mastoid air cells are well pneu matized. Orbits: The bony orbits are grossly intact. There are bilateral ocular lens implants. IMPRESSION: 1. There is no hemorrhage, mass effect, or evidence of acute territorial ischemia by CT criteria. 2. Left facial/scalp soft tissue contusion/hematoma. ACT 112: Negative or not required by law. Electronically signed by: Seven Rodgers M.D. 10/09/2020 7:22 AM
[2020-10-09] MEDS: PARoxetine HCL 20 MG TAB PO SCH (07:49)
[2020-10-09] MEDS: PARoxetine HCL 10 MG TAB PO SCH (07:49)
[2020-10-09] MEDS: CLOPIDOGREL BISULFATE 75 MG TAB PO SCH (07:50)
[2020-10-09] MEDS: hydrALAZINE TAB 50 MG TAB PO SCH ×4 (07:50→20:40)
[2020-10-09] MEDS: ASPIRIN 81 MG ECTAB PO SCH (07:50)
[2020-10-09] MEDS: METOPROLOL TARTRATE 50 MG TAB PO SCH ×2 (07:50→20:39)
[2020-10-09] MEDS: ADVANCED PROBIOTIC 1250 MG CAPSULE PO SCH (07:50)
[2020-10-09] MEDS: lisinopril 40 MG TAB PO SCH (07:50)
[2020-10-09] MEDS: PANTOprazole 40 MG TAB PO SCH (07:51)
--- NOTE | 2020-10-09 07:51 | XRay Report ---
LEFT KNEE 2 VIEWS CLINICAL HISTORY: Fall with left knee pain. FINDINGS: AP and crosstable lateral views of left knee are compared to study dated 03/06/2018. The skel etal structures are osteopenic. No fracture is seen. Advanced degenerative narrowing is seen in the m edial compartment with near-complete loss of joint space and large marginal osteophytes. Mild to mode rate narrowing is seen in the lateral and patellofemoral compartments. There are patellar enthesophyt es. Mild chondrocalcinosis is suggested in the medial and lateral compartments. There is trace joint effusion. Soft tissue swelling is seen around the knee. IMPRESSION: 1. Soft tissue swelling and trace joint effusion with no radiographic evidence of acute fracture. 2. Osteopenia with degenerative change and chondrocalcinosis as above. Electronically signed by: Seven Rodgers M.D. 10/09/2020 7:50 AM
[2020-10-09] MEDS: SODIUM CHLORIDE 1 GM TABLET PO SCH ×2 (08:09→20:39)
--- NOTE | 2020-10-09 08:51 | XRay Report ---
XR chest 1V portable CLINICAL HISTORY: Atypical chest pain COMPARISON STUDY: 03/27/2019 FINDINGS: The heart is borderline enlarged. There is no failure. There is no focal pulmonary consolid ation. There are no pleural effusions. There is aortic valve stent graft. There is a large right annamaria ce projects over the left[cardiac border, likely representing an event recorder IMPRESSION: No active disease in the chest. ACT 112: Negative or not required by law. Electronically signed by: Barrett aKy M.D. 10/09/2020 8:50 AM
--- NOTE | 2020-10-09 08:56 | XRay Report ---
SINGLE VIEW PELVIS CLINICAL HISTORY: Fall. FINDINGS: An AP, portable, supine view of the pelvis is compared to study dated 03/06/2018. The skeleta l structures are osteopenic. There is no radiographic evidence of acute fracture involving the hips o r bony pelvis. Moderate degenerative joint space narrowing is seen in the hips. Sclerotic change is n oted in the sacroiliac joints and pubic symphysis. Lumbosacral spondylosis is partially visualized. T he overlying soft tissues are normal in appearance. No bowel obstruction is seen. IMPRESSION: No fracture is identified. Electronically signed by: Seven Rodgers M.D. 10/09/2020 8:54 AM
[2020-10-09] MEDS ORDERED: NON-FORMULARY MEDICATION (Glucosam Su Dip-Chondroit-C-Mn 500-400-66-3 mg Capsule) PO SCH (09:00)
--- NOTE | 2020-10-09 10:53 | Electrocardiogram Report ---
Test Reason : Blood Pressure : / mmHG Vent. Rate : 074 BPM Atrial Rate : 074 BPM P-R Int : 250 ms QRS Dur : 094 ms QT Int : 446 ms P-R-T Axes : 056 -49 015 degrees QTc Int : 495 ms Sinus rhythm with 1st degree A-V block Left anterior fascicular block Voltage criteria for left ventricular hypertrophy Cannot rule out Septal infarct , age undetermined Abnormal ECG When compared with ECG of 27-MAR-2019 12:31, Minimal criteria for Septal infarct are now Present QT has lengthened Confirmed by Micah Gregg ([id number]) on 10/09/2020 10:53:37 AM Referred By: REFERRED SELF Confirmed By:Micah Gregg
[2020-10-09] MEDS: traZODone HCL 50 MG TAB PO SCH (20:40)
[2020-10-10] MEDS: LEVOTHYROXINE SODIUM 88 MCG TABLET PO SCH (06:15)
[2020-10-10] MEDS: ADVANCED PROBIOTIC 1250 MG CAPSULE PO SCH (07:48)
[2020-10-10] MEDS: lisinopril 40 MG TAB PO SCH (07:48)
[2020-10-10] MEDS: METOPROLOL TARTRATE 50 MG TAB PO SCH ×2 (07:49→20:28)
[2020-10-10] MEDS: hydrALAZINE TAB 50 MG TAB PO SCH ×3 (07:49→20:28)
[2020-10-10] MEDS: PANTOprazole 40 MG TAB PO SCH (07:49)
[2020-10-10] MEDS: CLOPIDOGREL BISULFATE 75 MG TAB PO SCH (07:49)
[2020-10-10] MEDS: PARoxetine HCL 10 MG TAB PO SCH (07:49)
[2020-10-10] MEDS: PARoxetine HCL 20 MG TAB PO SCH (07:49)
[2020-10-10] MEDS: ASPIRIN 81 MG ECTAB PO SCH (07:49)
[2020-10-10] MEDS: SODIUM CHLORIDE 1 GM TABLET PO SCH ×2 (07:49→20:28)
[2020-10-10 07:58] LABS: Albumin Level 3.3 gm/dl (3.4-5.0); BUN Creatinine Ratio 17.7 (10-20); Calcium 8.3 mg/dl (8.5-10.1); Creatinine Clr Calc Pharmacy 53.8 ml/min; Est GFR (African American) 81.7; Est GFR (Non-African American) 70.5; Potassium 3.9 mmol/L (3.5-5.1)
[2020-10-10 07:59] LABS: Phosphorus 2.7 mg/dl (2.5-4.9)
--- NOTE | 2020-10-10 15:44 | Hospitalist Progress Note ---
Date of Service October 10, 2020 Assessment & Plan (1) Hyponatremia: Hyponatremia/SIADH- Sodium 123, serum osmolality 258, urine osmolality 451 which is inappropriate Fluid restrict 1500 cc daily Sodium chloride 2 g p.o. twice daily Na up to 129 today, repeat tomorrow continue to hold HCTZ on discharge (2) SIADH (syndrome of inappropriate ADH production): See above (3) HTN (hypertension): Hold HCTZ as noted above. Otherwise continue all home medications: Aspirin, clopidogrel, hydralazine, lisinopril and metoprolol tartrate. BP is reasonably controlled her in house would recommend follow up with PCP in a week to see if any medications need adjusted (4) Hypothyroid: Continue levothyroxine sodium 88 mcg daily (5) Fall: Mechanical fall. 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 (6) Traumatic hematoma of face: Supportive therapy (7) Contusion of knee, left: Supportive therapy (8) Abrasion of left wrist: Supportive therapy Admission and Anticipated Discharge Date Admission Date: October 09, 2020 Subjective patient is doing better, ambulating in the hallway with walker with PT to help her no falls, she does lean a little to the left due to her blindness in left eye she is eating and drinking well sodium up to 129 with fluid restriction and NaCl tablets discussed d/c planning with her and with CM, would like to return to [facility] plan for home health/therapy at home, likely home this weekend, patient pleased with this idea Review of Systems Review of Systems: All systems reviewed & are unremarkable except as noted in Subjective Physical Exam Constitutional: well developed and well nourished; no acute distress Eyes: + abnormal visual field confrontation (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) Neck: trachea midline, no thyromegaly Respiratory: normal respiratory effort, lungs clear to auscultation Cardiovascular: RRR, no murmur, no edema Gastrointestinal (Abdomen): normal bowel sounds, soft, nontender, no hepatosplenomegaly Musculoskeletal: Head/Neck/Chest: + head abnormal to inspection (extensive bruising left face/head/neck from fall), normocephalic and neck supple Extremities: extremities normal to inspection and strength 5/5 throughout; no muscle atrophy Skin: no rashes, warm and dry (bruising left side of body from fall) Neurologic: patellar DTR's 2+ bilat, sensation intact and PERRL, EOMI, accommodation nl, no face palsy, no dysarthria Psychiatric: A+Ox3, euthymic affect Lymphatic: no cervical or axillary lymphadenopathy Results & Data Results & Data ([facility]) Vital Signs (Past 12 Hours) Vital Signs Temp Pulse Resp BP Pulse Ox Pulse Ox 10/10/20 11:30 94 10/10/20 07:20 36.8 C 67 16 161/76 H 93 Laboratory Results Laboratory Results - last 24 hr 10/10/20 07:07 Sodium 129 L Potassium 3.9 Chloride 97 L Carbon Dioxide 27 Anion Gap 5.0 BUN 13 D Creatinine 0.76 Est Cr Clr Drug Dosing 53.8 Est GFR ( Amer) 81.7 Est GFR (Non-Af Amer) 70.5 BUN/Creatinine Ratio 17.7 Glucose 90 Calcium 8.3 L Phosphorus 2.7 Magnesium 2.0 Albumin 3.3 L Medications Administered Current Inpatient Medications Acetaminophen (Acetaminophen 500 Mg Tab) 500 mg PO Q6H PRN PRN Reason: Pain Stop: 11/08/20 03:39 Al Hydrox/Mg Hydrox/Simethicone (Aluminum/Magnesium Susp 30 Ml Udc) 15 ml PO Q4H PRN PRN Reason: Dyspepsia Stop: 11/08/20 03:39 Alprazolam (Alprazolam 0.5 Mg Tablet) 0.5 mg PO DAILY PRN PRN Reason: Anxiety Stop: 11/08/20 03:39 Aspirin (Aspirin 81 Mg Ectab) 81 mg PO DAILY [facility] Stop: 11/08/20 08:59 Last Admin: 10/10/20 07:49 Dose: 81 mg Documented by: Clopidogrel Bisulfate (Clopidogrel Bisulfate 75 Mg Tab) 75 mg PO DAILY [facility] Stop: 11/08/20 08:59 Last Admin: 10/10/20 07:49 Dose: 75 mg Documented by: Hydralazine HCl (Hydralazine Tab 50 Mg Tab) 100 mg PO TID [facility] Stop: 11/08/20 08:59 Last Admin: 10/10/20 13:14 Dose: 100 mg Documented by: Lactobacillus Acidoph/Casei/Rhamnos (Advanced Probiotic 1250 Mg Capsule) 2 cap PO QAM [facility] Stop: 11/08/20 08:59 Last Admin: 10/10/20 07:48 Dose: 2 cap Documented by: Levothyroxine Sodium (Levothyroxine Sodium 88 Mcg Tablet) 88 mcg PO DAILYBB [facility] Stop: 11/08/20 06:29 Last Admin: 10/10/20 06:15 Dose: 88 mcg Documented by: Lisinopril (Lisinopril 40 Mg Tab) 40 mg PO QAM [facility] Stop: 11/08/20 08:59 Last Admin: 10/10/20 07:48 Dose: 40 mg Documented by: Magnesium Hydroxide (Magnesium Hydroxide Susp 30 Ml Udc) 30 ml PO Q12H PRN PRN Reason: Constipation Stop: 11/08/20 03:39 Metoprolol Tartrate (Metoprolol Tartrate 50 Mg Tab) 50 mg PO BID [facility] Stop: 11/08/20 08:59 Last Admin: 10/10/20 07:49 Dose: 50 mg Documented by: Ondansetron HCl (Ondansetron Inj 2 Mg/Ml 2 Ml Vial) 4 mg IV Q6H PRN PRN Reason: Nausea Stop: 11/08/20 03:39 Pantoprazole Sodium (Pantoprazole 40 Mg Tab) 40 mg PO DAILY [facility] Stop: 11/08/20 08:59 Last Admin: 10/10/20 07:49 Dose: 40 mg Documented by: Paroxetine HCl (Paroxetine Hcl 10 Mg Tab) 10 mg PO QAM [facility] Stop: 11/08/20 08:59 Last Admin: 10/10/20 07:49 Dose: 10 mg Documented by: Paroxetine HCl (Paroxetine Hcl 20 Mg Tab) 20 mg PO DAILY [facility] Stop: 11/08/20 08:59 Last Admin: 10/10/20 07:49 Dose: 20 mg Documented by: Sodium Chloride (Sodium Chloride 1 Gm Tablet) 2 gm PO BID [facility] Stop: 11/08/20 08:59 Last Admin: 10/10/20 07:49 Dose: 2 gm Documented by: Trazodone HCl (Trazodone Hcl 50 Mg Tab) 75 mg PO HS [facility] Stop: 11/08/20 20:59 Last Admin: 10/09/20 20:40 Dose: 75 mg Documented by: PG Care Time/CCT Total # of Minutes Spent Total Time Spent with Patient: Total time spent is greater than 50% in coordination of care (as documented) at patient's floor/unit and/or counseling patient: Coding Level of Care Code 82512 Subseq Hosp Care Lvl 2 Diagnoses Hyponatremia E87.1 SIADH (syndrome of inappropriate ADH production) E22.2 HTN (hypertension) I10 Hypothyroid E03.9 Fall W19.XXXA Encounter type: initial encounter Traumatic hematoma of face S00.83XA Contusion of knee, left S80.02XA Encounter type: initial encounter Abrasion of left wrist S60.812A Encounter type: initial encounter (1) Fall Encounter type: initial encounter Qualified Code(s): W19.XXXA - Unspecified fall, initial encounter (2) Contusion of knee, left Encounter type: initial encounter Qualified Code(s): S80.02XA - Contusion of left knee, initial encounter (3) Abrasion of left wrist Encounter type: initial encounter Qualified Code(s): S60.812A - Abrasion of left wrist, initial encounter
[2020-10-10] MEDS ORDERED: diphenhydrAMINE Capsule 25 MG CAP PO ONE (16:41)
[2020-10-10] MEDS: amLODIPine BESYLATE 5 MG TAB PO SCH (17:12)
[2020-10-10] MEDS: traZODone HCL 50 MG TAB PO SCH (20:28)
[2020-10-11] MEDS: LEVOTHYROXINE SODIUM 88 MCG TABLET PO SCH (06:07)
[2020-10-11 06:22] LABS: Albumin Level 3.1 gm/dl (3.4-5.0); BUN Creatinine Ratio 22.5 (10-20); Calcium 8.2 mg/dl (8.5-10.1); Creatinine Clr Calc Pharmacy 57.6 ml/min; Est GFR (African American) 88.8; Est GFR (Non-African American) 76.6; Potassium 3.9 mmol/L (3.5-5.1)
[2020-10-11 06:23] LABS: Phosphorus 2.8 mg/dl (2.5-4.9)
[2020-10-11] MEDS: amLODIPine BESYLATE 5 MG TAB PO SCH (08:12)
[2020-10-11] MEDS: PARoxetine HCL 20 MG TAB PO SCH (08:14)
[2020-10-11] MEDS: SODIUM CHLORIDE 1 GM TABLET PO SCH (08:14)
[2020-10-11] MEDS: ASPIRIN 81 MG ECTAB PO SCH (08:14)
[2020-10-11] MEDS: ADVANCED PROBIOTIC 1250 MG CAPSULE PO SCH (08:14)
[2020-10-11] MEDS: CLOPIDOGREL BISULFATE 75 MG TAB PO SCH (08:14)
[2020-10-11] MEDS: PARoxetine HCL 10 MG TAB PO SCH (08:14)
[2020-10-11] MEDS: PANTOprazole 40 MG TAB PO SCH (08:14)
[2020-10-11] MEDS: lisinopril 40 MG TAB PO SCH (08:14)
[2020-10-11] MEDS: hydrALAZINE TAB 50 MG TAB PO SCH ×2 (08:14→13:24)
[2020-10-11] MEDS: METOPROLOL TARTRATE 50 MG TAB PO SCH (08:15)
--- NOTE | 2020-10-11 12:12 | Discharge Summary ---
Date of Service October 11, 2020 Admission HPI Per Admitting Provider The patient is an 85-year-old female with a past medical history including hypertension, hypothyroidism, hyponatremia, osteoarthritis, anxiety, GERD, insomnia. She is presently finishing a course of Bactrim for urinary tract infection, reporting that the pelvic discomfort that she had is resolved. She reports that she was walking along this evening, and tripped and fell over her walker and landed on her left side of her face. Work-up in the emergency department included x-rays of wrist, chest x-ray, pelvis and knee, all of which were normal. She also underwent CT scans of cervical spine, face and head, wh ich primarily showed a soft tissue hematoma on the left side. Laboratories revealed the following abnormalities: Sodium 123 with range 126-136, serum osmolality of 258, urine osmolality of 451, magnesium 1.6 and glucose 142. 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) Neck trachea midline, no thyromegaly Respiratory normal respiratory effort, lungs clear to auscultation Cardiovascular RRR, no murmur, no edema Gastrointestinal (Abdomen) normal bowel sounds, soft, nontender, no hepatosplenomegaly Musculoskeletal Head/Neck/Chest: + head abnormal to inspection (extensive bruising left face/head/neck from fall), normocephalic and neck supple Extremities: extremities normal to inspection and strength 5/5 throughout; no muscle atrophy Skin no rashes, warm and dry (bruising left side of body from fall) Neurologic patellar DTR's 2+ bilat, sensation intact and PERRL, EOMI, accommodation nl, no face palsy, no dysarthria Psychiatric A+Ox3, euthymic affect Lymphatic no cervical or axillary lymphadenopathy Discharge Data Allergies Allergy/AdvReac Type Severity Reaction Status Date / Time niacin Allergy Intermediate REDESS, Verified 10/08/20 23:40 SKIN BURNING pollen extracts Allergy Intermediate TREE Verified 10/08/20 23:40 POLLENS: PROFOUND ACHE/FATIGUE bee venom protein (honey bee) Allergy Mild SWELLING Verified 10/08/20 23:40 mold Allergy Mild SNEEZING Verified 10/08/20 23:40 metformin AdvReac Intermediate MYALGIA, Verified 10/08/20 23:40 FATIGUE Consultations 10/09/20 00:45 ED Decision to Admit Stat 10/09/20 03:40 Consult Case Management - Discharge Planning Routine Ordered Studies 10/08/20 21:26 CT cervical spine wo con Urgent CT facial bones wo con Urgent CT head/brain wo con Urgent Hospital Course (1) Hyponatremia: Hyponatremia/SIADH- Sodium 123, serum osmolality 258, urine osmolality 451 which is inappropriate Fluid restrict 1500 cc daily Sodium chloride 2 g p.o. twice daily Na up to 131 today, stable for discharge plan: fluid restriction at 1800mL a day, sodium chloride 1gm BID, instructed patient to liberalize salt in diet check BMP in 3 days with results to Dr. Pham if sodium is going down then increase sodium chloride to 2gm BID will discontinue HCTZ since it could be contributing to hyponatremia follow up with Dr. Pham next week (2) SIADH (syndrome of inappropriate ADH production): See above (3) HTN (hypertension): stop HCTZ as noted above. Otherwise continue all home medications: Aspirin, clopidogrel, hydralazine, lisinopril and metoprolol tartrate. BP is elevated at times, 160-170 systolic start on Norvasc 2.5mg daily follow up with PCP in a week, if BP still up then could consider increasing Norvasc to 5mg (4) Hypothyroid: Continue levothyroxine sodium 88 mcg daily (5) Fall: Mechanical fall. 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 she feels safe to return home today and is anxious to get out of the hospital (6) Traumatic hematoma of face: Supportive therapy (7) Contusion of knee, left: Supportive therapy (8) Abrasion of left wrist: Supportive therapy Total Time Total Time Spent Total Time Spent (In Minutes): 31 minutes Total Time Includes: Examination of the Patient, Discharge Planning and Me dication Reconciliation Discharge Plan Discharge Items Patient Disposition: Home - Home Health Services Reason For Visit: SYNCOPE, HYPONATREMIA Discharge Diagnosis: Mechanical fall with left sided hematoma/bruising Hyponatremia due to SIADH Hypertension Condition on Discharge: Good Goals: improve strength and mobility blood pressure control with addition of Norvasc Activity: Resume your previous activity Weightbearing: Full weightbearing Non-emergency contact: Primary Care Provider Call non-emergency contact if: you have any medication questions and your symptoms worsen Follow-up/Referrals: Lisbet Pham MD [Primary Care Provider] - (5-7 days) Diet: Regular Fluids: 1800ml (7 cups) Ambulatory Orders: Basic Metabolic Panel (Routine) Timeframe: 3 Days Location: Determined by Patient Ordered By: Rancho Thompson Attending Provider Instructions: Medications: - NORVASC: 2.5mg every morning for blood pressure control, this replaces hydrochlorothiazide - SODIUM CHLORIDE: 1gm twice a day, you can start this tomorrow as you received 2gm this morning - HYDROCHLOROTHIAZIDE: stop taking this medication due to low sodium levels Mechanical fall causing contusion, hematoma left side of face, knee, wrist therapy cleared you to return home, recommend using your walker, walking slowly, being aware that you drift to the left due to blindness in left eye case management has arranged for home health and home therapy Hypertension: we have STOPPED hydrochlorothiazide, replaced with amlodipine 2.5mg daily please follow up with Dr. Pham, if BP is still elevated in the office then you could increased dose to 5mg daily Hyponatremia (low sodium) testing on admission showed that you have signs of SIADH, which is inappropriate levels of a hormone called anti-diuretic hormone when ADH is high it causes kidneys to hold onto free water which then dilutes your sodium levels, causing them to be low we treat this by limiting fluid intake to 1.8 liters a day and giving you sodium chloride tablets sodium is 131 today, continue to take the sodium 1gm twice a day, recommend checking labs next week, if sodium goes down a little then increase to 2gm twice a day home health can draw labs so you don't have to leave the house Pending Studies at Discharge: No Stand-Alone Forms: [email or web address], Smoking Cessation Medications and DC Order Prescriptions: New sodium chloride 1 gram Tablet 1 g PO BID 30 Days Qty: 60 RF: 3 amlodipine [Norvasc] 5 mg Tablet 2.5 mg PO QAM 30 Days Qty: 15 RF: 3 Continued metoprolol tartrate 50 mg Tablet 50 mg PO BID RF: 0 lisinopril 40 mg Tablet 40 mg PO QAM RF: 0 levothyroxine 88 mcg Capsule 88 mcg PO DAILY RF: 0 glucosam baca [id number] mg Capsule 1 cap PO BID RF: 0 Probiotic 3 billion cell Capsule 3,000 mmu cells PO QAM RF: 0 paroxetine HCl 10 mg Tablet 10 mg PO QAM RF: 0 trazodone 50 mg Tablet 75 mg PO HS RF: 0 acetaminophen [Tylenol Extra Strength] 500 mg Tablet 500 mg PO Q6H PRN (Reason: Pain) RF: 0 hydralazine 50 mg Tablet 100 mg PO TID RF: 0 clopidogrel [Plavix] 75 mg Tablet 75 mg PO DAILY RF: 0 sulfamethoxazole-trimethoprim [Bactrim DS] 800-160 mg Tablet 1 tab PO BID RF: 0 aspirin 81 mg Tablet,Delayed Release (Dr/Ec) 81 mg PO DAILY RF: 0 alprazolam 0.5 mg Tablet 0.5 mg PO DAILY PRN (Reason: Anxiety) RF: 0 paroxetine HCl 20 mg Tablet 20 mg PO DAILY RF: 0 omeprazole 20 mg Capsule,Delayed Release(Dr/Ec) 20 mg PO DAILY RF: 0 diclofenac sodium [Voltaren] 1 % gel 1 g TOP QID PRN (Reason: KNEE PAIN) RF: 0 Discontinued hydrochlorothiazide 25 mg Tablet 25 mg PO DAILY RF: 0 Discharge Orders: Discharge Order (Routine); Ordered 10/11/20 Ordered By: Rancho Orozco Admission Data Admit Date/Time: 10/09/20 01:22 Attending Provider: Rancho Orozco Admit Provider: Chandu Jacobo Primary Care Provider: Lisbet Pham Other Providers: Chandu Jacobo ; [facility] Coding Level of Care Code D/C Day Management >30 mins Diagnoses Hyponatremia E87.1 SIADH (syndrome of inappropriate ADH production) E22.2 HTN (hypertension) I10 Hypothyroid E03.9 Fall W19.XXXA Encounter type: initial encounter Traumatic hematoma of face S00.83XA Contusion of knee, left S80.02XA Encounter type: initial encounter Abrasion of left wrist S60.812A Encounter type: initial encounter
== END 2020-10-11 15:15 | disposition home health service (06) | DRG 645 ==
LOC: ED 20:54 → SUATTDRO 10-09 01:22 → EDINP 10-09 01:22 → 2S 10-09 03:26 → 3E 10-09 11:47

== ENCOUNTER 2021-01-09 08:05 | Inpatient (IN) ==
[2021-01-09] MEDS ORDERED: cefTRIAXone SODIUM 2,000 MG/70 ML BAG IV STA (08:22)
[2021-01-09] MEDS ORDERED: SODIUM CHLORIDE 0.9% 500 ML IV SCH (08:30)
--- NOTE | 2021-01-09 08:30 | Emergency Department Note ---
Impression & Plan Weakness, Blood bacterial culture positive ED Provider Note Provider: Bryson Cardenas MD DATE OF SERVICE: 01/09/2021 CHIEF COMPLAINT: Weakness/confusion HISTORY OF PRESENT ILLNESS: Patient is a 85-year-old female with a past medical history including hypertension, hypothyroidism, diverticulitis, and stroke presenting here today for further evaluation of her symptoms. Evidently was seen here yesterday afternoon with blood work, CT the head, EKG, UA and chest x- ray obtained. Lactate was not elevated. Other than some hypokalemia/hypomagnesemia findings were not impressive initially and patient was sent back to the [place] where she resides in an apartment. Overnight blood cultures sent yesterday all 4 bottles of returned positive for gram-positive cocci in chains. Patient and facility contacted she was sent back here for further care. She states she still feels a bit weak but denies any fevers overnight or syncope or other pain. Patient does not report any chest pain or abdominal pain. Denies any significant chills. Does report that she had a valve replacement several years ago at [facility]. REVIEW OF SYSTEMS: A total of 10 review of systems was obtained and negative except as stated above in the HPI. PAST MEDICAL HISTORY: As noted above MEDICATIONS: Reviewed home medication list SOCIAL HISTORY: Resides in assisted living at the [place] PHYSICAL EXAM: GENERAL: alert and oriented in no acute distress on stretcher Head: normocephalic and atraumatic EYES: No injection, discharge or icterus. NECK: Trachea midline. Supple. LUNGS: Airway patent. No retractions. Breath sounds clear HEART: Regular rate and rhythm. No chest wall tenderness ABDOMEN: Soft and non-tender, without guarding or rebound. SKIN: Acyanotic, warm, dry, without rashes EXTREMITIES: Without swelling, tenderness or deformity NEUROLOGICAL: No focal deficits. No aphasia. No facial droop or slurred speech. EK beats minute sinus rhythm first-degree AV block. No PVC or PAC. No acute ST segment elevation or depression with a QTC of 494. He was version in lead III/aVF. Compared to previous from yesterday, heart rate is improved however lead III/aVF T wave inversions present today CONTINUOUS CARDIAC MONITORING: was ordered and showed a heart rate of 65 bpm in normal sinus rhythm Patient's laboratory studies and imaging reviewed. Differential includes Infection, dehydration, metabolic abnormality, hypo/hyperglycemia, electrolyte disturbance, anemia, hypoxia, cardiac sources, intracerebral event, toxicologic, neurologic, as well as other pathologies. IMPRESSION/MEDICAL DECISION MAKING: Patient presents called back after evaluation yesterday for confusion weakness with 4+ blood cultures for gram-positive cocci. Patient denies any significant worsening since yesterday still with some weakness but denies significant confusion. Patient does report she has history of aortic valve replacement several years ago at [facility]. Question if this could possibly be a source that would further need to be investigated. Repeat labs are ordered to day. Repeat chest x-ray today without evidence of acute heart failure or pneumonia. No significant leukocytosis and actually somewhat down compared to yesterday at 7.6 today. Covid test ordered for admission. Given ceftriaxone after blood culture order and lactate order for broad coverage at this time will defer further antibiotic selection to the inpatient team. Discussed with the patient the need for admission for further evaluation of the blood cultures and she was in agreement this plan. She does prefer update her daughter via phone which I did. Daughter does state the patient had a little bit of loose stool recently and had an episode of some breathing difficulty yesterday. Patient at this time appears comfortable. Updated daughter about blood culture findings and plan for further care at the hospital. She is resting comfortably in bed. Discussed likely need for occult bacteremia work-up including likely cardiac echo. DIAGNOSIS: Weakness, positive blood cultures DISPOSITION: Hospitalist will evaluate Past Med/Surg History Medical History (Updated 01/09/21 @ 09:42 by Edie Reeder PA-C) Anxiety Aortic stenosis Blindness of left eye Cardiac murmur HX Chronic back pain SPASMS AND PAIN LOWER BACK Colon cancer Diverticular disease Diverticulitis Fall Hypertension Hypothyroidism HASHIMOTOS Macular degeneration Osteoarthritis SOB (shortness of breath) on exertion Stroke Surgical History History of bowel resection FOR [id number] YRS AGO NO CHEMO NO RADIATION History of colonoscopy X MULTIPLE History [place] [place] History of tonsillectomy History of total knee replacement RIGHT Family History Daughter Family history of malignant hyperthermia DAUGHTER [facility] YRS [id number] HAS NEVER BEEN TESTED Social History Smoking Status: Former smoker Tobacco Type: Cigarettes Second Hand Exposure: No; Do You Dip or Chew Tobacco: No; Tobacco Cessation Education Requested by Patient: No Hx Alcohol Use: No Hx Substance Use: No Preferred Language: Ugandan Communication Ability: Effective Finance Analyst Required: No Beliefs That Will Affect Care: None Current Living Situation: Personal Care Facility [facility] Feels Safe at Home: Yes Safety Concerns: Feels Safe At This Time Assistive Devices: Glasses and Walker Allergies Allergies Allergy/AdvReac Type Severity Reaction Status Date / Time niacin Allergy Intermediate REDESS, Verified 01/09/21 08:38 SKIN BURNING pollen extracts Allergy Intermediate TREE Verified 01/09/21 08:38 POLLENS: PROFOUND ACHE/FATIGUE bee venom protein (honey bee) Allergy Mild SWELLING Verified 01/09/21 08:38 mold Allergy Mild SNEEZING Verified 01/09/21 08:38 metformin AdvReac Intermediate MYALGIA, Verified 01/09/21 08:38 FATIGUE Home Meds Home Medications Medication Instructions Recorded Confirmed glucosam baca [id number] 2 cap PO DAILY 02/16/19 01/09/21 hydralazine 100 mg PO TID 02/16/19 01/09/21 levothyroxine 88 mcg PO QAM 02/16/19 01/09/21 lisinopril 40 mg PO QAM 02/16/19 01/09/21 metoprolol tartrate 50 mg PO BID 02/16/19 01/09/21 paroxetine HCl 10 mg PO QAM 02/16/19 01/09/21 trazodone 75 mg PO HS 02/16/19 01/09/21 clopidogrel [Plavix] 75 mg PO DAILY 06/14/19 01/09/21 alprazolam 0.5 mg PO DAILY PRN 10/08/20 01/09/21 aspirin 81 mg PO QAM 10/08/20 01/09/21 diclofenac sodium [Voltaren] 1 g TOP QID PRN 10/08/20 01/09/21 omeprazole 20 mg PO DAILY 10/08/20 01/09/21 Lactobacill 46-B.animal-inulin 1 cap PO DAILY 01/09/21 01/09/21 [Probiotic-10 (with inulin)] Previous Rx's Medication Instructions Recorded amlodipine [Norvasc] 2.5 mg PO QAM 30 Days #15 tab 10/11/20 sodium chloride 1 g PO BID 30 Days #60 tab 10/11/20 Results & Data (ED) Vital Signs Vital Signs - 24 hr 01/09/21 08:14 01/09/21 08:59 01/09/21 09:01 Temperature 37.4 C Temperature Source Oral Pulse Rate 73 Pulse Rate [Apical] 69 Pulse Rhythm Regular Pulse Rhythm [Apical] Regular Pulse Strength Normal Pulse Strength [Apical] Normal Respiratory Rate 16 18 Respiratory Effort / Characteristics Non-Labored Non-Labored Respiratory Depth Normal Normal Respiratory Pattern Regular Blood Pressure 186/64 H Blood Pressure [Right Arm] 157/59 H Blood Pressure Mean 104 Blood Pressure Mean [Right Arm] 91 Blood Pressure Position Sitting Blood Pressure Position [Right Arm] Sitting Pulse Oximetry 94 94 94 Oxygen Delivery Method Room Air Room Air Room Air Sepsis Recent Fever Within 48 Hours No Sepsis New/Unexplained Change in Mental Status No Sepsis Action Taken by Nursing No Action Required 01/09/21 10:10 Temperature Temperature Source Pulse Rate 69 Pulse Rate [Apical] Pulse Rhythm Pulse Rhythm [Apical] Pulse Strength Pulse Strength [Apical] Respiratory Rate 20 Respiratory Effort / Characteristics Respiratory Depth Respiratory Pattern Blood Pressure 168/75 H Blood Pressure [Right Arm] Blood Pressure Mean 106 Blood Pressure Mean [Right Arm] Blood Pressure Position Blood Pressure Position [Right Arm] Pulse Oximetry 95 Oxygen Delivery Method Sepsis Recent Fever Within 48 Hours Sepsis New/Unexplained Change in Mental Status Sepsis Action Taken by Nursing Laboratory Data Result diagrams: 01/09/21 08:45 01/09/21 08:44 Lab Results 01/09/21 01/09/21 01/09/21 Range/Units 08:44 08:44 08:45 WBC (4.8-10.8) K/uL RBC (4.2-5.4) M/uL Hgb (12.0-16.0) g/dL Hct (37-47) % MCV (80-100) fL MCH (25-34) pg MCHC (32-36) g/dL RDW Std Deviation (36.4-46.3) fL RDW Coeff of Nara (11.5-14.5) % Plt Count (130-400) K/uL MPV (7.4-10.4) fL Immature Gran % (Auto) % Neut % (Auto) % Lymph % (Auto) % Emmet % (Auto) % Eos % (Auto) % Baso % (Auto) % Neut # (Auto) (1.4-6.5) K/uL Lymph # (Auto) (1.2-3.4) K/uL Emmet # (Auto) (0.11-0.59) K/uL Eos # (Auto) (0-0.5) K/uL Baso # (Auto) (0-0.2) K/uL Immature Gran # (Auto) (0.00-0.02) K/uL Sodium 137 (136-145) mmol/L Potassium 3.5 (3.5-5.1) mmol/L Chloride 103 (98-107) mmol/L Carbon Dioxide 28 (21-32) mmol/L Anion Gap 6.0 (3-11) BUN 12 D (7-18) mg/dl Creatinine 0.73 (0.6-1.2) mg/dl Est Cr Clr Drug Dosing 53.4 ml/min Est GFR ( Amer) 85.8 Est GFR (Non-Af Amer) 74.1 BUN/Creatinine Ratio 15.7 (10-20) Glucose 116 H (70-99) mg/dl Lactate 1.1 (0.4-2.0) mmol/L Calcium 8.9 (8.5-10.1) mg/dl Magnesium 1.8 (1.8-2.4) mg/dl Total Bilirubin 0.9 (0.2-1) mg/dl AST 31 (15-37) U/L ALT 25 (12-78) U/L Alkaline Phosphatase 117 (45-117) U/L Troponin I < 0.015 (0-0.045) ng/ml C-Reactive Protein 4.51 H (0-0.29) mg/dl Total Protein 6.4 (6.4-8.2) gm/dl Albumin 2.8 L (3.4-5.0) gm/dl Globulin 3.6 (2.5-4.0) gm/dl Albumin/Globulin Ratio 0.8 L (0.9-2) Urine Color Urine Appearance (Clear) Urine pH (4.5-7.5) Ur Specific Albers (1.000-1.030) Urine Protein (Negative) Urine Glucose (UA) (Negative) Urine Ketones (Negative) Urine Blood (Negative) Urine Nitrite (Negative) Urine Bilirubin (Negative) Urine Urobilinogen (Negative) Ur Leukocyte Esterase (Negative) COVID-19 Eval Order SARS-CoV-2, RNA, NAAT (NEGATIVE) 01/09/21 01/09/21 01/09/21 Range/Units 08:45 09:08 09:08 WBC 7.66 (4.8-10.8) K/uL RBC 4.14 L (4.2-5.4) M/uL Hgb 12.8 (12.0-16.0) g/dL Hct 37.4 (37-47) % MCV 90.3 (80-100) fL MCH 30.9 (25-34) pg MCHC 34.2 (32-36) g/dL RDW Std Deviation 43.9 (36.4-46.3) fL RDW Coeff of Nara 13.4 (11.5-14.5) % Plt Count 179 (130-400) K/uL MPV 9.7 (7.4-10.4) fL Immature Gran % (Auto) 0.4 % Neut % (Auto) 84.0 % Lymph % (Auto) 7.7 % Emmet % (Auto) 7.8 % Eos % (Auto) 0.0 % Baso % (Auto) 0.1 % Neut # (Auto) 6.43 (1.4-6.5) K/uL Lymph # (Auto) 0.59 L (1.2-3.4) K/uL Emmet # (Auto) 0.60 H (0.11-0.59) K/uL Eos # (Auto) 0.00 (0-0.5) K/uL Baso # (Auto) 0.01 (0-0.2) K/uL Immature Gran # (Auto) 0.03 H (0.00-0.02) K/uL Sodium (136-145) mmol/L Potassium (3.5-5.1) mmol/L Chloride (98-107) mmol/L Carbon Dioxide (21-32) mmol/L Anion Gap (3-11) BUN (7-18) mg/dl Creatinine (0.6-1.2) mg/dl Est Cr Clr Drug Dosing ml/min Est GFR ( Amer) Est GFR (Non-Af Amer) BUN/Creatinine Ratio (10-20) Glucose (70-99) mg/dl Lactate (0.4-2.0) mmol/L Calcium (8.5-10.1) mg/dl Magnesium (1.8-2.4) mg/dl Total Bilirubin (0.2-1) mg/dl AST (15-37) U/L ALT (12-78) U/L Alkaline Phosphatase (45-117) U/L Troponin I (0-0.045) ng/ml C-Reactive Protein (0-0.29) mg/dl Total Protein (6.4-8.2) gm/dl Albumin (3.4-5.0) gm/dl Globulin (2.5-4.0) gm/dl Albumin/Globulin Ratio (0.9-2) Urine Color Urine Appearance (Clear) Urine pH (4.5-7.5) Ur Specific Albers (1.000-1.030) Urine Protein (Negative) Urine Glucose (UA) (Negative) Urine Ketones (Negative) Urine Blood (Negative) Urine Nitrite (Negative) Urine Bilirubin (Negative) Urine Urobilinogen (Negative) Ur Leukocyte Esterase (Negative) COVID-19 Eval Order Covid19 IDNow [facility] SARS-CoV-2, RNA, NAAT NEGATIVE (NEGATIVE) 01/09/21 Range/Units 10:15 WBC (4.8-10.8) K/uL RBC (4.2-5.4) M/uL Hgb (12.0-16.0) g/dL Hct (37-47) % MCV (80-100) fL MCH (25-34) pg MCHC (32-36) g/dL RDW Std Deviation (36.4-46.3) fL RDW Coeff of Nara (11.5-14.5) % Plt Count (130-400) K/uL MPV (7.4-10.4) fL Immature Gran % (Auto) % Neut % (Auto) % Lymph % (Auto) % Emmet % (Auto) % Eos % (Auto) % Baso % (Auto) % Neut # (Auto) (1.4-6.5) K/uL Lymph # (Auto) (1.2-3.4) K/uL Emmet # (Auto) (0.11-0.59) K/uL Eos # (Auto) (0-0.5) K/uL Baso # (Auto) (0-0.2) K/uL Immature Gran # (Auto) (0.00-0.02) K/uL Sodium (136-145) mmol/L Potassium (3.5-5.1) mmol/L Chloride (98-107) mmol/L Carbon Dioxide (21-32) mmol/L Anion Gap (3-11) BUN (7-18) mg/dl Creatinine (0.6-1.2) mg/dl Est Cr Clr Drug Dosing ml/min Est GFR ( Amer) Est GFR (Non-Af Amer) BUN/Creatinine Ratio (10-20) Glucose (70-99) mg/dl Lactate (0.4-2.0) mmol/L Calcium (8.5-10.1) mg/dl Magnesium (1.8-2.4) mg/dl Total Bilirubin (0.2-1) mg/dl AST (15-37) U/L ALT (12-78) U/L Alkaline Phosphatase (45-117) U/L Troponin I (0-0.045) ng/ml C-Reactive Protein (0-0.29) mg/dl Total Protein (6.4-8.2) gm/dl Albumin (3.4-5.0) gm/dl Globulin (2.5-4.0) gm/dl Albumin/Globulin Ratio (0.9-2) Urine Color Dark Yellow Urine Appearance Clear (Clear) Urine pH 6.5 (4.5-7.5) Ur Specific Albers 1.018 (1.000-1.030) Urine Protein Negative (Negative) Urine Glucose (UA) Negative (Negative) Urine Ketones Negative (Negative) Urine Blood Negative (Negative) Urine Nitrite Negative (Negative) Urine Bilirubin 1+ H (Negative) Urine Urobilinogen Negative (Negative) Ur Leukocyte Esterase Negative (Negative) COVID-19 Eval Order SARS-CoV-2, RNA, NAAT (NEGATIVE) Administered Medications Discontinued Medications Sodium Chloride (Nss) 500 mls @ 999 mls/hr IV .Q31M LEXX Stop: 01/09/21 09:00 Last Infusion: 01/09/21 09:53 Dose: 0 mls/hr Documented by: [id number] Admin: 01/09/21 09:22 Dose: 999 mls/hr Documented by: [id number] Ceftriaxone Sodium (Rocephin) 2,000 mg in 70 mls @ 140 mls/hr IV NOW STA Stop: 01/09/21 08:51 Last Infusion: 01/09/21 09:52 Dose: 0 mls/hr Documented by: [id number] Admin: 01/09/21 09:22 Dose: 140 mls/hr Documented by: [id number] Discharge Plan Visit Data Chief Complaint: Abnormal Labs/Diagnostic Testing Stated Complaint: ABNORMAL LABS ED Provider: Bryson Cardenas Discharge Problem: Weakness, Blood bacterial culture positive Patient Disposition: Admitted As Inpatient
[2021-01-09 08:55] LABS: Basophils # (auto) 0.01 K/uL (0-0.2); Basophils % (auto) 0.1 %; Hematocrit (blood only) 37.4 % (37-47); Hemoglobin 12.8 g/dL (12.0-16.0); Immature Granulocytes # (auto) 0.03 K/uL (0.00-0.02); Immature Granulocytes % (auto) 0.4 %; Lymphocytes # (auto) 0.59 K/uL (1.2-3.4); Lymphocytes % (auto) 7.7 %; Mean Corpuscular Hemoglobin 30.9 pg (25-34); Mean Corpuscular Hgb Conc 34.2 g/dL (32-36); Mean Corpuscular Volume 90.3 fL (80-100); Mean Platelet Volume 9.7 fL (7.4-10.4); Monocytes % (auto) 7.8 %; Neutrophils # (auto) 6.43 K/uL (1.4-6.5); Platelet Count 179 K/uL (130-400); RDW Coefficient of Variation 13.4 % (11.5-14.5); RDW Standard Deviation 43.9 fL (36.4-46.3); Red Blood Count 4.14 M/uL (4.2-5.4); White Blood Count 7.66 K/uL (4.8-10.8)
[2021-01-09] MEDS ORDERED: cefTRIAXone SODIUM 2,000 MG in DEXTROSE 5% 50 ML IV SCH (09:00)
--- NOTE | 2021-01-09 09:09 | XRay Report ---
SINGLE VIEW CHEST CLINICAL HISTORY: Generalized weakness. FINDINGS: An AP, portable, upright chest radiograph is compared to study dated 01/08/2021. The heart i s enlarged noting atherosclerotic calcification of the thoracic aorta. The pulmonary vasculature is n oncongested. There is evidence of previous cardiac valve surgery. Chronic interstitial thickening is similar to previous. There is mild bibasilar scarring/atelectasis. No airspace consolidation or large pleural effusion is identified. No pneumothorax is seen. The skeletal structures are osteopenic. The bony thorax is grossly intact. IMPRESSION: Cardiomegaly with no acute cardiopulmonary abnormality. ACT 112: Negative or not required by law. Electronically signed by: eSven Rodgers M.D. 01/09/2021 9:08 AM
[2021-01-09 09:12] LABS: Alanine Aminotransferase 25 U/L (12-78); Albumin Level 2.8 gm/dl (3.4-5.0); Aspartate Aminotransferase 31 U/L (15-37); BUN Creatinine Ratio 15.7 (10-20); Blood Urea Nitrogen 12 mg/dl (7-18); C Reactive Protein 4.51 mg/dl (0-0.29); Calcium 8.9 mg/dl (8.5-10.1); Carbon Dioxide 28 mmol/L (21-32); Chloride 103 mmol/L (98-107); Creatinine Clr Calc Pharmacy 53.4 ml/min; Est GFR (African American) 85.8; Est GFR (Non-African American) 74.1; Glucose 116 mg/dl (70-99); Potassium 3.5 mmol/L (3.5-5.1); Sodium 137 mmol/L (136-145)
[2021-01-09 09:16] LABS: Albumin Globulin Ratio 0.8 (0.9-2); Alkaline Phosphatase 117 U/L (45-117); Bilirubin,Total 0.9 mg/dl (0.2-1); Globulin 3.6 gm/dl (2.5-4.0); Total Protein 6.4 gm/dl (6.4-8.2); Troponin I < 0.015 ng/ml (0-0.045)
--- NOTE | 2021-01-09 09:49 | History & Physical Report ---
Date of Service January 09, 2021 Assessment & Plan (1) Bacteremia: Initial blood cultures from 01/08 with 4/4 gram positive cocci in clusters Repeat blood cultures pending COVID 19 negative Plan to admit to telemetry Given hx of aortic valve replacement will need to obtain ECHO Will consult cardiology for possible DARIO. Trop negative on admission Lactic 1.1 CRP elevated at 4.51 ER placed on Ceftriaxone --> will switch to Vancomycin until able to determine if GPC MRSA vs. MSSA vs. other Daily weights Strict I&O Will likely need lobsterman IV abx given prosthetics -- consult ID once BCx isolate determined UA pending although denied urinary symptoms, no recent catheters Serial labs and electrolyte replacement as needed (2) Weakness: Likely secondary to bacteremia as above and lack of PO intake PT/OT consults to be ordered (3) Aortic stenosis: s/p replacement 2017 ECHO as above monitor on telemetry continue ASA, Plavix (4) SIADH (syndrome of inappropriate ADH production): Hx of. Sodium acceptable Previous admission placed on sodium tablets and fluid restriction -- will need to monitor closely but will avoid restriction for now given lack of appetite (5) HTN (hypertension): Chronically elevated and on multiple agents. recent switch from HCTZ to amlodipine for SIADH which has been stable Has not yet taken any morning medications and BP elevated to 168/75 -- ordered AM medications for now. no headache/visual changes reported Continue amlodipine, metoprolol 50mg BID, hydralazine 100mg TID Continue to monitor (6) Hypothyroid: Will check TSH For now, continue levothyroxine 88mcg daily (7) History of knee replacement: noted (8) Anxiety: paroxetine 30mg daily (9) DVT prophylaxis: SCDs Lovenox SQ FULL CODE -- I discussed with patient From the [facility] Dispo: likely to remain inpatient until negative blood cultures/IV access for discharge History of Present Illness Chief Complaint: positive blood cultures Primary Care Provider: Lisbet Pham MD 85 year old female who resides at the [facility] with PMHx significant for aortic stenosis s/p valve replacement 2018 [facility] [place], HTN, hypothyroidism, SIADH, GERD, anxiety/depression presented to the emergency department on 01/08 for weakness and confusion with lack of PO intake and was discharged after electrolytes were replaced. However, blood cultures returned 03/01 with GPC in chains and patient was contacted to return to the emergency department for treatment. Patient states she is feeling better than yesterday during her ER visit, but still has some weakness. Not much of an appetite. Had heart valve replaced approximately 2 years ago and has been doing well since. No shortness of breath, chest pain, palpitations, syncope (outside of fallSeptember 2020, but does endorse feeling "wobbly" on her feet at times and needs left knee replacement but due to age unable to have done per her account). 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 Back pain chronic, and not worsened over past months. Discussed positive blood cultures and due to her aortic valve we will need to ensure spread not to that area that would require transfer out for valve repair if needed. Patient agreeable to admission and antibiotics. She has not taken any of her morning medications. ER Course: Ceftriaxone IV x 1, NSS 500cc. Lactic wnl. CXR with cardiomegaly but no failure. CT Head from yesterday negative for acute process. EKG with SR 1st degree AV block, LAD, LVH, prolonged QT Allergies Allergy/AdvReac Type Severity Reaction Status Date / Time niacin Allergy Intermediate REDESS, Verified 01/09/21 08:38 SKIN BURNING pollen extracts Allergy Intermediate TREE Verified 01/09/21 08:38 POLLENS: PROFOUND ACHE/FATIGUE bee venom protein (honey bee) Allergy Mild SWELLING Verified 01/09/21 08:38 mold Allergy Mild SNEEZING Verified 01/09/21 08:38 metformin AdvReac Intermediate MYALGIA, Verified 01/09/21 08:38 FATIGUE Home Medications Medication Instructions Recorded Confirmed Type glucosam baca [id number] 2 cap PO DAILY 02/16/19 01/09/21 History hydralazine 100 mg PO TID 02/16/19 01/09/21 History levothyroxine 88 mcg PO QAM 02/16/19 01/09/21 History lisinopril 40 mg PO QAM 02/16/19 01/09/21 History metoprolol tartrate 50 mg PO BID 02/16/19 01/09/21 History paroxetine HCl 10 mg PO QAM 02/16/19 01/09/21 History trazodone 75 mg PO HS 02/16/19 01/09/21 History clopidogrel [Plavix] 75 mg PO DAILY 06/14/19 01/09/21 History alprazolam 0.5 mg PO DAILY PRN 10/08/20 01/09/21 History aspirin 81 mg PO QAM 10/08/20 01/09/21 History diclofenac sodium [Voltaren] 1 g TOP QID PRN 10/08/20 01/09/21 History omeprazole 20 mg PO DAILY 10/08/20 01/09/21 History amlodipine [Norvasc] 2.5 mg PO QAM 30 Days #15 tab 10/11/20 01/09/21 Rx sodium chloride 1 g PO BID 30 Days #60 tab 10/11/20 01/09/21 Rx Lactobacill 46-B.animal-inulin 1 cap PO DAILY 01/09/21 01/09/21 History [Probiotic-10 (with inulin)] Past Med/Surg History Medical History (Updated 01/09/21 @ 09:42 by Edie Reeder PA-C) Anxiety Aortic stenosis Blindness of left eye Cardiac murmur HX Chronic back pain SPASMS AND PAIN LOWER BACK Colon cancer Diverticular disease Diverticulitis Fall Hypertension Hypothyroidism HASHIMOTOS Macular degeneration Osteoarthritis SOB (shortness of breath) on exertion Stroke Surgical History History of bowel resection FOR [id number] YRS AGO NO CHEMO NO RADIATION History of colonoscopy X MULTIPLE History of heart valve replacement [facility] [place] 2017? History of tonsillectomy History of total knee replacement RIGHT Family History Daughter Family history of malignant hyperthermia DAUGHTER L[facility]ITA [facility] YRS [id number] HAS NEVER BEEN TESTED Social History Smoking Status: Former smoker Tobacco Type: Cigarettes Second Hand Exposure: No; Do You Dip or Chew Tobacco: No; Tobacco Cessation Education Requested by Patient: No Hx Alcohol Use: No Hx Substance Use: No Preferred Language: Maltese Communication Ability: Effective Butcher Meat Required: No Beliefs That Will Affect Care: None Current Living Situation: Personal Care Facility Current Living Situation Comment: [facility] Feels Safe at Home: Yes Safety Concerns: Feels Safe At This Time Assistive Devices: Glasses and Walker Review of Systems Review of Systems: All systems reviewed & are unremarkable except as noted in HPI & below Physical Exam Physical Exam: Constitutional: wd/wn, NAD, resting comfortably in bed Eyes: L eye blindness with ptosis ENMT: mmm Neck: trachea midline, no thyromegaly appreciated Resp: CTAB, no w/c/r Cardiac: RRR, faint ROSARIO, no edema/calf tenderness, cap refill <3 seconds, no evidence of splinter hemorrhages. no carotid bruit appreciated GI: Abd soft, non-tender. +BS, no guarding/rigidity MSK: moves all extremities, L knee with small effusion and non-tender to pa lpation. no erythema or skin break, spine non-tender to palpation Neuro: strength 5/5, no pronator drift, CN intact (exception L eye blindness) : no carrera Lymph: no adenopathy appreciated Results & Data Results & Data ([facility]) Vital Signs (Past 12 Hours) Vital Signs Temp Pulse Pulse Resp BP BP Pulse Ox 01/09/21 09:01 94 01/09/21 08:59 69 18 157/59 H 94 01/09/21 08:14 37.4 C 73 16 186/64 H 94 Laboratory Results 01/09/21 01/09/21 01/09/21 Range/Units 09:08 09:08 08:45 WBC 7.66 (4.8-10.8) K/uL RBC 4.14 L (4.2-5.4) M/uL Hgb 12.8 (12.0-16.0) g/dL Hct 37.4 (37-47) % MCV 90.3 (80-100) fL MCH 30.9 (25-34) pg MCHC 34.2 (32-36) g/dL RDW Std Deviation 43.9 (36.4-46.3) fL RDW Coeff of Nara 13.4 (11.5-14.5) % Plt Count 179 (130-400) K/uL MPV 9.7 (7.4-10.4) fL Immature Gran % (Auto) 0.4 % Neut % (Auto) 84.0 % Lymph % (Auto) 7.7 % [place] % (Auto) 7.8 % Eos % (Auto) 0.0 % Baso % (Auto) 0.1 % Neut # (Auto) 6.43 (1.4-6.5) K/uL Lymph # (Auto) 0.59 L (1.2-3.4) K/uL [place] # (Auto) 0.60 H (0.11-0.59) K/uL Eos # (Auto) 0.00 (0-0.5) K/uL Baso # (Auto) 0.01 (0-0.2) K/uL Immature Gran # (Auto) 0.03 H (0.00-0.02) K/uL Sodium (136-145) mmol/L Potassium (3.5-5.1) mmol/L Chloride (98-107) mmol/L Carbon Dioxide (21-32) mmol/L Anion Gap (3-11) BUN (7-18) mg/dl Creatinine (0.6-1.2) mg/dl Est Cr Clr Drug Dosing ml/min Est GFR ( Amer) Est GFR (Non-Af Amer) BUN/Creatinine Ratio (10-20) Glucose (70-99) mg/dl Lactate (0.4-2.0) mmol/L Calcium (8.5-10.1) mg/dl Magnesium (1.8-2.4) mg/dl Total Bilirubin (0.2-1) mg/dl AST (15-37) U/L ALT (12-78) U/L Alkaline Phosphatase (45-117) U/L Troponin I (0-0.045) ng/ml C-Reactive Protein (0-0.29) mg/dl Total Protein (6.4-8.2) gm/dl Albumin (3.4-5.0) gm/dl Globulin (2.5-4.0) gm/dl Albumin/Globulin Ratio (0.9-2) COVID-19 Eval [facility] SARS-CoV-2, RNA, NAAT Pending 01/09/21 01/09/21 01/09/21 Range/Units 08:45 08:44 08:44 WBC (4.8-10.8) K/uL RBC (4.2-5.4) M/uL Hgb (12.0-16.0) g/dL Hct (37-47) % MCV (80-100) fL MCH (25-34) pg MCHC (32-36) g/dL RDW Std Deviation (36.4-46.3) fL RDW Coeff of Nara (11.5-14.5) % Plt Count (130-400) K/uL MPV (7.4-10.4) fL Immature Gran % (Auto) % Neut % (Auto) % Lymph % (Auto) % [place] % (Auto) % Eos % (Auto) % Baso % (Auto) % Neut # (Auto) (1.4-6.5) K/uL Lymph # (Auto) (1.2-3.4) K/uL [place] # (Auto) (0.11-0.59) K/uL Eos # (Auto) (0-0.5) K/uL Baso # (Auto) (0-0.2) K/uL Immature Gran # (Auto) (0.00-0.02) K/uL Sodium 137 (136-145) mmol/L Potassium 3.5 (3.5-5.1) mmol/L Chloride 103 (98-107) mmol/L Carbon Dioxide 28 (21-32) mmol/L Anion Gap 6.0 (3-11) BUN 12 D (7-18) mg/dl Creatinine 0.73 (0.6-1.2) mg/dl Est Cr Clr Drug Dosing 53.4 ml/min Est GFR ( Amer) 85.8 Est GFR (Non-Af Amer) 74.1 BUN/Creatinine Ratio 15.7 (10-20) Glucose 116 H (70-99) mg/dl Lactate 1.1 (0.4-2.0) mmol/L Calcium 8.9 (8.5-10.1) mg/dl Magnesium 1.8 (1.8-2.4) mg/dl Total Bilirubin 0.9 (0.2-1) mg/dl AST 31 (15-37) U/L ALT 25 (12-78) U/L Alkaline Phosphatase 117 (45-117) U/L Troponin I < 0.015 (0-0.045) ng/ml C-Reactive Protein 4.51 H (0-0.29) mg/dl Total Protein 6.4 (6.4-8.2) gm/dl Albumin 2.8 L (3.4-5.0) gm/dl Globulin 3.6 (2.5-4.0) gm/dl Albumin/Globulin Ratio 0.8 L (0.9-2) COVID-19 Eval Order SARS-CoV-2, RNA, NAAT Diagnostic Findings SINGLE VIEW CHEST CLINICAL HISTORY: Generalized weakness. FINDINGS: An AP, portable, upright chest radiograph is compared to study dated 01/08/2021. The heart is enlarged noting atherosclerotic calcification of the thoracic aorta. The pulmonary vasculature is noncongested. There is evidence of previous cardiac valve surgery. Chronic interstitial thickening is similar to previous. There is mild bibasilar scarring/atelectasis. No airspace consolidation or large pleural effusion is identified. No pneumothorax is seen. The skeletal structures are osteopenic. The bony thorax is grossly intact. IMPRESSION: Cardiomegaly with no acute cardiopulmonary abnormality. Supervising Physician Co-Signing Physician Notes I supervised Edie Reeder PA-C on this patient's care. I interviewed and examined the patient independently of her. The plan is as written in the note except for any following changes/exceptions: None Doing well today. No systemic signs of infection. Will follow repeat cultures and treat with vanc/ceftriaxone until speciation. PG Care Time/CCT Total # of Minutes Spent Total Time Spent with Patient: Total time spent is greater than 50% in coordination of care (as documented) at patient's floor/unit and/or counseling patient: Coding Level of Care Code 40739 Initial Inpt Care Lvl 3 Diagnoses Bacteremia R78.81 Weakness R53.1 Aortic stenosis I35.0 SIADH (syndrome of inappropriate ADH production) E22.2 HTN (hypertension) I10 Hypothyroid E03.9 History of knee replacement Z96.659 Anxiety F41.9 DVT prophylaxis Z29.9
[2021-01-09 10:26] LABS: Appearance Urine Clear (Clear); Blood Urine Negative (Negative); Color Urine Dark Yellow; Glucose Urine UA Negative (Negative); Ketones Urine Negative (Negative); Leukocyte Esterase Urine Negative (Negative); Nitrite Urine Negative (Negative); Protein Urine Negative (Negative); Specific Gravity Urine 1.018 (1.000-1.030); Urobilinogen Urine Negative (Negative); pH Urine 6.5 (4.5-7.5)
[2021-01-09 10:27] LABS: Bilirubin Urine 1+ (Negative)
[2021-01-09] MEDS ORDERED: VANCOMYCIN CONSULT ACTIVE PRN ×2 (13:06)
[2021-01-09] MEDS ORDERED: ALPRAZolam 0.5 MG TABLET PO PRN (13:06)
[2021-01-09] MEDS ORDERED: ALUMINUM/MAGNESIUM SUSP 30 ML UDC PO PRN (13:06)
[2021-01-09] MEDS ORDERED: POLYETHYLENE (MIRALAX) 17 GM PACK PO PRN (13:06)
[2021-01-09] MEDS ORDERED: NITROGLYCERIN SL 0.4 MG/TAB TAB SL PRN (13:06)
[2021-01-09] MEDS ORDERED: VANCOMYCIN HCL 1,000 MG in SODIUM CHLORIDE 0.9% 250 ML IV SCH (13:06)
[2021-01-09] MEDS ORDERED: ONDANSETRON INJ 2 MG/ML 2 ML VIAL IV PRN (13:06)
[2021-01-09] MEDS ORDERED: ACETAMINOPHEN 325 MG TAB PO PRN (13:06)
[2021-01-09] MEDS ORDERED: VANCOMYCIN HCL 1,750 MG in SODIUM CHLORIDE 0.9% 500 ML IV ONE (13:45)
[2021-01-09] MEDS ORDERED: DICLOFENAC SOD 1% GEL 100 GM TUBE EXT PRN (14:15)
[2021-01-09 15:11] LABS: Troponin I < 0.015 ng/ml (0-0.045)
[2021-01-09 15:24] LABS: Lyme Ab IgG w/WB Rflx Negative (Negative); Lyme Ab IgM w/WB Rflx Negative (Negative)
--- NOTE | 2021-01-09 15:39 | Pharmacy Report ---
Pharmacy Abx Dose Short Note - Date of Service January 09, 2021 - Assessment & Plan Assessment 85 year old F receiving vanco/ceftriaxone for treatment of bacteremia Day # 1 of antimicrobial therapy. BC 03/01 growing gram positive cocci in chains, awaiting speciation for de-escalation, patient has a history of aortic valve replacement. Plan to consult infectious disease Plan Vancomycin * Patient meets criteria for vancomycin AUC dosing nomogram AUC/SADIA is the preferred PK/PD target for vancomycin Target AUC/SADIA = 400-600 AUC guided dosing is effective and associated with decreased risk of nephrot oxicity Pharmacy will continue to follow and will adjust dose/frequency as necessary. Thank you.
[2021-01-09] MEDS: amLODIPine BESYLATE 5 MG TAB PO SCH (17:56)
[2021-01-09] MEDS: hydrALAZINE TAB 50 MG TAB PO SCH ×2 (17:59→20:26)
[2021-01-09] MEDS: CLOPIDOGREL BISULFATE 75 MG TAB PO SCH (17:59)
[2021-01-09] MEDS: ASPIRIN 81 MG ECTAB PO SCH (17:59)
[2021-01-09] MEDS: METOPROLOL TARTRATE 50 MG TAB PO SCH ×2 (17:59→20:27)
[2021-01-09] MEDS: lisinopril 40 MG TAB PO SCH (18:00)
[2021-01-09] MEDS: PARoxetine HCL 10 MG TAB PO SCH (18:01)
--- NOTE | 2021-01-09 18:10 | Electrocardiogram Report ---
Test Reason : Blood Pressure : / mmHG Vent. Rate : 070 BPM Atrial Rate : 070 BPM P-R Int : 214 ms QRS Dur : 096 ms QT Int : 458 ms P-R-T Axes : 032 -43 -10 degrees QTc Int : 494 ms Sinus rhythm with 1st degree A-V block Left axis deviation Voltage criteria for left ventricular hypertrophy Prolonged QT Abnormal ECG When compared with ECG of 08-JAN-2021 11:14, Vent. rate has decreased BY [address] no longer depressed in Lateral leads T wave inversion more evident in Inferior leads Confirmed by Baljit Phipps ([id number]) on 01/09/2021 6:10:14 PM Referred By: REFERRED SELF Confirmed By:Baljit Phipps
[2021-01-09] MEDS: traZODone HCL 50 MG TAB PO SCH (20:27)
[2021-01-10] MEDS: VANCOMYCIN HCL 1,000 MG in SODIUM CHLORIDE 0.9% 250 ML IV SCH ×2 (03:37→15:55)
[2021-01-10] MEDS: LEVOTHYROXINE SODIUM 88 MCG TABLET PO SCH (05:53)
[2021-01-10 06:05] LABS: Basophils # (auto) 0.01 K/uL (0-0.2); Basophils % (auto) 0.2 %; Eosinophils # (auto) 0.04 K/uL (0-0.5); Eosinophils % (auto) 0.9 %; Hematocrit (blood only) 34.5 % (37-47); Hemoglobin 11.7 g/dL (12.0-16.0); Immature Granulocytes # (auto) 0.01 K/uL (0.00-0.02); Immature Granulocytes % (auto) 0.2 %; Lymphocytes # (auto) 0.94 K/uL (1.2-3.4); Lymphocytes % (auto) 20.3 %; Mean Corpuscular Hgb Conc 33.9 g/dL (32-36); Mean Corpuscular Volume 91.3 fL (80-100); Monocytes # (auto) 0.35 K/uL (0.11-0.59); Monocytes % (auto) 7.6 %; Neutrophils # (auto) 3.27 K/uL (1.4-6.5); Neutrophils % (auto) 70.8 %; Platelet Count 169 K/uL (130-400); RDW Coefficient of Variation 13.7 % (11.5-14.5); Red Blood Count 3.78 M/uL (4.2-5.4); White Blood Count 4.62 K/uL (4.8-10.8)
[2021-01-10 06:35] LABS: Albumin Level 2.4 gm/dl (3.4-5.0); BUN Creatinine Ratio 17.2 (10-20); Calcium 8.3 mg/dl (8.5-10.1); Creatinine Clr Calc Pharmacy 62.2 ml/min; Est GFR (African American) 93.5; Est GFR (Non-African American) 80.6; Potassium 3.5 mmol/L (3.5-5.1)
[2021-01-10 06:38] LABS: Albumin Globulin Ratio 0.7 (0.9-2); Bilirubin,Total 0.5 mg/dl (0.2-1); Globulin 3.5 gm/dl (2.5-4.0); Total Protein 5.9 gm/dl (6.4-8.2)
[2021-01-10] MEDS: amLODIPine BESYLATE 5 MG TAB PO SCH (08:15)
[2021-01-10] MEDS: ADVANCED PROBIOTIC 1250 MG CAPSULE PO SCH (08:15)
[2021-01-10] MEDS: ASPIRIN 81 MG ECTAB PO SCH (08:15)
[2021-01-10] MEDS: lisinopril 40 MG TAB PO SCH (08:15)
[2021-01-10] MEDS: PANTOprazole 40 MG TAB PO SCH (08:15)
[2021-01-10] MEDS: METOPROLOL TARTRATE 50 MG TAB PO SCH ×2 (08:16→19:57)
[2021-01-10] MEDS: PARoxetine HCL 10 MG TAB PO SCH (08:16)
[2021-01-10] MEDS: hydrALAZINE TAB 50 MG TAB PO SCH ×3 (08:16→19:57)
[2021-01-10] MEDS: CLOPIDOGREL BISULFATE 75 MG TAB PO SCH (08:16)
[2021-01-10] MEDS: cefTRIAXone SODIUM 2,000 MG in DEXTROSE 5% 50 ML IV SCH (08:23)
[2021-01-10] MEDS ORDERED: NON-FORMULARY MEDICATION (Glucosam Su Dip-Chondroit-C-Mn 500-400-66-3 mg Capsule) PO SCH (09:00)
[2021-01-10] MEDS: ENOXAPARIN INJ 40 MG/0.4 ML SYR SQ SCH (09:22)
--- NOTE | 2021-01-10 09:33 | Hospitalist Progress Note ---
Date of Service January 10, 2021 Assessment & Plan (1) Bacteremia: * Initial blood cultures from 01/08 with 4/4 gram positive cocci in CHAINS --> 1 set with staph species and alpha strep not s. pneumoniae/enterococcus * Repeat blood cultures 01/09 positive 4/4 with gram positive cocci in chains * Repeated again today * COVID 19 negative (did just recently receive vaccination) * Afebrile, WBC wnl at 4.6k * Given hx of aortic valve replacement will need to obtain ECHO -- pending * Consulted cardiology for possible DARIO -- appreciate input * Trop negative on admission, repeats also negative * Lactic 1.1 * CRP elevated at 4.51 * ER placed on Ceftriaxone --> continued on Ceftriaxone/Vancomycin (if staph species not MRSA consider de-escalation) * Daily weights * Strict I&O * Will likely need middle or intermediate school principal IV abx given prosthetics * Infectious Disease consulted today -- appreciate recommendations * UA without evidence of infection (did note bilirubin which could be due to color -- will order RUQ U/S to r/o smoldering GB given no other source for current bacteremia). no recent catheters * Serial labs and electrolyte replacement as needed (2) Weakness: * Likely secondary to bacteremia as above and lack of PO intake * PT/OT consults pending -- if able to meet goals consider d/c back to [facility]. Otherwise may benefit from short course inpatient rehab * Will get xray of L knee given chronic pain and increased issues with ambulation but she does have bacteremia and hx of prosthetic knee replacement without clear source (3) Aortic stenosis: * s/p replacement 2017 * ECHO as above pending * monitor on telemetry -- has been sinus with 1st degree in the 50-60s. Lyme negative * continue ASA, Plavix (4) SIADH (syndrome of inappropriate ADH production): * Hx of. * Sodium acceptable * Previous admission placed on sodium tablets and fluid restriction -- will need to monitor closely but will avoid restriction for now given lack of appetite (improved today) (5) HTN (hypertension): * Chronically elevated and on multiple agents. recent switch from HCTZ to amlodipine for SIADH which has been stable * BP stable 137/69 * Continue amlodipine, metoprolol 50mg BID, hydralazine 100mg TID * Continue to monitor (6) Hypothyroid: * TSH wnl * Continue levothyroxine 88mcg daily (7) History of knee replacement: * noted * xray pending as above for LEFT knee (8) Anxiety: * Stable * Continue paroxetine 30mg daily (9) DVT prophylaxis: * SCDs * Lovenox SQ FULL CODE -- I discussed with patient From the [facility] Dispo: likely to remain inpatient until negative blood cultures/IV access for discharge PT/OT with recs for possible rehab at discharge if unable to meet goals HIM consulted for outside records for her aortic valve surgery 2018 -- have not recevied yet Admission and Anticipated Discharge Date Admission Date: January 09, 2021 Subjective Patient evaluated this morning. Feeling well but still endorses feeling "wobbly". Had some redness/itching to where previous telemetry monitoring stickers were and since replaced with latex free is without issue (except for some red patches to where prior stickers were). Had ECHO done this morning but not read just yet. No fever, chills, chest pain, shortness of breath, headache, worsening vision, photophobia, back pain, dysuria at this time. Discussed repeat blood cultures positive and will continue to repeat until negative. If echo shows vegetation, may need transferred for intervention. Discussed ID consult for today to determine course/length of treatment and antibiotic selection. Questions/concerns answered at this time. Review of Systems Review of Systems: All systems reviewed & are unremarkable except as noted in HPI & below Physical Exam Physical Exam: Constitutional: wd/wn, NAD, resting comfortably in bed eating lunch Eyes: L eye blindness with ptosis ENMT: mmm Neck: trachea midline, no thyromegaly appreciated Resp: CTAB, no w/c/r Cardiac: RRR, faint ROSARIO, no edema/calf tenderness, cap refill <3 seconds, no evidence of splinter hemorrhages. no carotid bruit appreciated GI: Abd soft, non-tender. +BS, no guarding/rigidity MSK: moves all extremities, L knee with small effusion and non-tender to palpation. no erythema or skin break, spine non-tender to palpation, without meningeal signs Neuro: strength 5/5, no pronator drift, CN intact (exception L eye blindness) Skin: cool, dry. red patches to b/l upper chest from previous lead stickers, non-painful : no carrera Lymph: no adenopathy appreciated Results & Data Results & Data ([facility]) Vital Signs (Past 12 Hours) Vital Signs Temp Pulse Resp BP BP Pulse Ox 01/10/21 07:15 36.6 C 62 20 172/76 H 174/84 H 93 01/10/21 03:42 36.7 C 61 18 166/84 H 92 01/10/21 00:00 37.0 C 65 17 115/68 95 Laboratory Results 01/10/21 01/10/21 01/10/21 Range/Units 05:49 05:49 01:18 WBC 4.62 L (4.8-10.8) K/uL RBC 3.78 L (4.2-5.4) M/uL Hgb 11.7 L (12.0-16.0) g/dL Hct 34.5 L (37-47) % MCV 91.3 (80-100) fL MCH 31.0 (25-34) pg MCHC 33.9 (32-36) g/dL RDW Std Deviation 45.0 (36.4-46.3) fL RDW Coeff of Nara 13.7 (11.5-14.5) % Plt Count 169 (130-400) K/uL MPV 10.0 (7.4-10.4) fL Immature Gran % (Auto) 0.2 % Neut % (Auto) 70.8 % Lymph % (Auto) 20.3 % [place] % (Auto) 7.6 % Eos % (Auto) 0.9 % Baso % (Auto) 0.2 % Neut # (Auto) 3.27 (1.4-6.5) K/uL Lymph # (Auto) 0.94 L (1.2-3.4) K/uL [place] # (Auto) 0.35 (0.11-0.59) K/uL Eos # (Auto) 0.04 (0-0.5) K/uL Baso # (Auto) 0.01 (0-0.2) K/uL Immature Gran # (Auto) 0.01 (0.00-0.02) K/uL Sodium 138 (136-145) mmol/L Potassium 3.5 (3.5-5.1) mmol/L Chloride 105 (98-107) mmol/L Carbon Dioxide 29 (21-32) mmol/L Anion Gap 4.0 (3-11) BUN 11 (7-18) mg/dl Creatinine 0.63 (0.6-1.2) mg/dl Est Cr Clr Drug Dosing 62.2 ml/min Est GFR ( Amer) 93.5 Est GFR (Non-Af Amer) 80.6 BUN/Creatinine Ratio 17.2 (10-20) Glucose 103 H (70-99) mg/dl Calcium 8.3 L (8.5-10.1) mg/dl Magnesium (1.8-2.4) mg/dl Total Bilirubin 0.5 (0.2-1) mg/dl AST 29 (15-37) U/L ALT 23 (12-78) U/L Alkaline Phosphatase 115 (45-117) U/L Troponin I < 0.015 (0-0.045) ng/ml Total Protein 5.9 L (6.4-8.2) gm/dl Albumin 2.4 L (3.4-5.0) gm/dl Globulin 3.5 (2.5-4.0) gm/dl Albumin/Globulin Ratio 0.7 L (0.9-2) TSH (0.300-4.500) uIu/ml Urine Color Urine Appearance (Clear) Urine pH (4.5-7.5) Ur Specific [place] (1.000-1.030) Urine Protein (Negative) Urine Glucose (UA) (Negative) Urine Ketones (Negative) Urine Blood (Negative) Urine Nitrite (Negative) Urine Bilirubin (Negative) Urine Urobilinogen (Negative) Ur Leukocyte Esterase (Negative) Lyme Disease IgG Ab (Negative) Lyme Disease IgM Ab (Negative) SARS-CoV-2, RNA, NAAT (NEGATIVE) 01/09/21 01/09/21 01/09/21 Range/Units 19:36 14:17 14:17 WBC (4.8-10.8) K/uL RBC (4.2-5.4) M/uL Hgb (12.0-16.0) g/dL Hct (37-47) % MCV (80-100) fL MCH (25-34) pg MCHC (32-36) g/dL RDW Std Deviation (36.4-46.3) fL RDW Coeff of Nara (11.5-14.5) % Plt Count (130-400) K/uL MPV (7.4-10.4) fL Immature Gran % (Auto) % Neut % (Auto) % Lymph % (Auto) % [place] % (Auto) % Eos % (Auto) % Baso % (Auto) % Neut # (Auto) (1.4-6.5) K/uL Lymph # (Auto) (1.2-3.4) K/uL [place] # (Auto) (0.11-0.59) K/uL Eos # (Auto) (0-0.5) K/uL Baso # (Auto) (0-0.2) K/uL Immature Gran # (Auto) (0.00-0.02) K/uL Sodium (136-145) mmol/L Potassium (3.5-5.1) mmol/L Chloride (98-107) mmol/L Carbon Dioxide (21-32) mmol/L Anion Gap (3-11) BUN (7-18) mg/dl Creatinine (0.6-1.2) mg/dl Est Cr Clr Drug Dosing ml/min Est GFR ( Amer) Est GFR (Non-Af Amer) BUN/Creatinine Ratio (10-20) Glucose (70-99) mg/dl Calcium (8.5-10.1) mg/dl Magnesium (1.8-2.4) mg/dl Total Bilirubin (0.2-1) mg/dl AST (15-37) U/L ALT (12-78) U/L Alkaline Phosphatase (45-117) U/L Troponin I < 0.015 < 0.015 (0-0.045) ng/ml Total Protein (6.4-8.2) gm/dl Albumin (3.4-5.0) gm/dl Globulin (2.5-4.0) gm/dl Albumin/Globulin Ratio (0.9-2) TSH 3.200 (0.300-4.500) uIu/ml Urine Color Urine Appearance (Clear) Urine pH (4.5-7.5) Ur Specific [place] (1.000-1.030) Urine Protein (Negative) Urine Glucose (UA) (Negative) Urine Ketones (Negative) Urine Blood (Negative) Urine Nitrite (Negative) Urine Bilirubin (Negative) Urine Urobilinogen (Negative) Ur Leukocyte Esterase (Negative) Lyme Disease IgG Ab Negative (Negative) Lyme Disease IgM Ab Negative (Negative) SARS-CoV-2, RNA, NAAT (NEGATIVE) 01/09/21 01/09/21 01/09/21 Range/Units 10:15 09:08 08:44 WBC (4.8-10.8) K/uL RBC (4.2-5.4) M/uL Hgb (12.0-16.0) g/dL Hct (37-47) % MCV (80-100) fL MCH (25-34) pg MCHC (32-36) g/dL RDW Std Deviation (36.4-46.3) fL RDW Coeff of Nara (11.5-14.5) % Plt Count (130-400) K/uL MPV (7.4-10.4) fL Immature Gran % (Auto) % Neut % (Auto) % Lymph % (Auto) % [place] % (Auto) % Eos % (Auto) % Baso % (Auto) % Neut # (Auto) (1.4-6.5) K/uL Lymph # (Auto) (1.2-3.4) K/uL [place] # (Auto) (0.11-0.59) K/uL Eos # (Auto) (0-0.5) K/uL Baso # (Auto) (0-0.2) K/uL Immature Gran # (Auto) (0.00-0.02) K/uL Sodium (136-145) mmol/L Potassium (3.5-5.1) mmol/L Chloride (98-107) mmol/L Carbon Dioxide (21-32) mmol/L Anion Gap (3-11) BUN (7-18) mg/dl Creatinine (0.6-1.2) mg/dl Est Cr Clr Drug Dosing ml/min Est GFR ( Amer) Est GFR (Non-Af Amer) BUN/Creatinine Ratio (10-20) Glucose (70-99) mg/dl Calcium (8.5-10.1) mg/dl Magnesium 1.8 (1.8-2.4) mg/dl Total Bilirubin (0.2-1) mg/dl AST (15-37) U/L ALT (12-78) U/L Alkaline Phosphatase (45-117) U/L Troponin I (0-0.045) ng/ml Total Protein (6.4-8.2) gm/dl Albumin (3.4-5.0) gm/dl Globulin (2.5-4.0) gm/dl Albumin/Globulin Ratio (0.9-2) TSH (0.300-4.500) uIu/ml Urine Color Dark Yellow Urine Appearance Clear (Clear) Urine pH 6.5 (4.5-7.5) Ur Specific [place] 1.018 (1.000-1.030) Urine Protein Negative (Negative) Urine Glucose (UA) Negative (Negative) Urine Ketones Negative (Negative) Urine Blood Negative (Negative) Urine Nitrite Negative (Negative) Urine Bilirubin 1+ H (Negative) Urine Urobilinogen Negative (Negative) Ur Leukocyte Esterase Negative (Negative) Lyme Disease IgG Ab (Negative) Lyme Disease IgM Ab (Negative) SARS-CoV-2, RNA, NAAT NEGATIVE (NEGATIVE) Diagnostic Findings ECHO pending PG Care Time/CCT Total # of Minutes Spent Total Time Spent with Patient: Total time spent is greater than 50% in coordination of care (as documented) at patient's floor/unit and/or counseling patient: Coding Level of Care Code 82966 Subseq Hosp Care Lvl 3 Diagnoses Bacteremia R78.81 Weakness R53.1 Aortic stenosis I35.0 SIADH (syndrome of inappropriate ADH production) E22.2 HTN (hypertension) I10 Hypothyroid E03.9 History of knee replacement Z96.659 Anxiety F41.9 DVT prophylaxis Z29.9
[2021-01-10] MEDS ORDERED: cefTRIAXone SODIUM 2,000 MG in DEXTROSE 5% 50 ML IV SCH (14:00)
--- NOTE | 2021-01-10 14:48 | XRay Report ---
LEFT KNEE 3 VIEWS CLINICAL HISTORY: Chronic left knee pain. FINDINGS: AP, crosstable lateral, and sunrise views of the left knee are compared to study dated 09/28. The skeletal structures are osteopenic. No fracture is identified. There is moderate to advan joe tricompartmental degenerative joint space narrowing, greatest in the medial compartment. There is chondrocalcinosis of the medial and lateral compartments. There are large medial marginal osteophyte s and small patellar enthesophytes. No joint effusion is identified. There is mild medial tissue swel ling. IMPRESSION: Osteopenia and degenerative change as above with no acute bony abnormality identified. Electronically signed by: Seven Rodgers M.D. 01/10/2021 2:46 PM
--- NOTE | 2021-01-10 15:11 | Ultrasound Report ---
ULTRASOUND RIGHT UPPER QUADRANT ABDOMEN CLINICAL HISTORY: Elevated serum bilirubin. COMPARISON STUDY: Abdominal CT dated 03/25/2018. TECHNIQUE: Real-time, grayscale, and color flow sonography of the right upper quadrant of the abdomen was performed. Images are reviewed in the transverse and longitudinal planes. FINDINGS: Liver: The liver is normal in size and heterogeneous in echotexture. There is no intrahepatic biliary ductal dilatation. The main portal vein is patent. Gallbladder: There are small shadowing gallstones and biliary sludge. There is no gallbladder wall th ickening or pericholecystic fluid. A sonographic Talbot's sign is reportedly absent. The common bile duct measures up to 0.5 cm in diameter. Pancreas: Visualized portions of the pancreatic head and body are normal in appearance. The splenic v ein is patent. Right kidney: Survey images of the right kidney demonstrate mild cortical atrophy. Echotexture is nor mal. There is no hydronephrosis. Small renal cysts measure up to 1.3 cm. Ascites: None. IMPRESSION: 1. There are small gallstones and biliary sludge with no sonographic evidence of acute cholecystitis. 2. Hepatic echotexture is heterogeneous. ACT 112: Negative or not required by law. Electronically signed by: Seven Rodgers M.D. 01/10/2021 3:09 PM
--- NOTE | 2021-01-10 16:28 | XCELERA ---
[id number]
[2021-01-10] MEDS: traZODone HCL 50 MG TAB PO SCH (20:14)
[2021-01-11] MEDS: VANCOMYCIN HCL 1,000 MG in SODIUM CHLORIDE 0.9% 250 ML IV SCH ×2 (04:54→17:20)
[2021-01-11] MEDS: LEVOTHYROXINE SODIUM 88 MCG TABLET PO SCH (04:55)
--- NOTE | 2021-01-11 06:26 | Electrocardiogram Report ---
Test Reason : Blood Pressure : / mmHG Vent. Rate : 078 BPM Atrial Rate : 078 BPM P-R Int : 270 ms QRS Dur : 094 ms QT Int : 422 ms P-R-T Axes : 058 -48 015 degrees QTc Int : 481 ms Sinus rhythm with 1st degree A-V block Left anterior fascicular block Moderate voltage criteria for LVH, may be normal variant Prolonged QT Abnormal ECG When compared with ECG of 09-JAN-2021 08:51, No significant change was found Confirmed by Sung Li ([id number]) on 01/11/2021 6:26:27 AM Referred By: REFERRED SELF Confirmed By:Sung Li
[2021-01-11 06:46] LABS: Hematocrit (blood only) 36.5 % (37-47); Hemoglobin 12.5 g/dL (12.0-16.0); Mean Corpuscular Hgb Conc 34.2 g/dL (32-36); Mean Corpuscular Volume 90.6 fL (80-100); Mean Platelet Volume 9.6 fL (7.4-10.4); Platelet Count 185 K/uL (130-400); RDW Coefficient of Variation 13.4 % (11.5-14.5); RDW Standard Deviation 44.1 fL (36.4-46.3); Red Blood Count 4.03 M/uL (4.2-5.4); White Blood Count 4.53 K/uL (4.8-10.8)
[2021-01-11 07:16] LABS: Albumin Level 2.5 gm/dl (3.4-5.0); BUN Creatinine Ratio 15.3 (10-20); Bilirubin Direct 0.2 mg/dl (0-0.2); Calcium 8.4 mg/dl (8.5-10.1); Creatinine Clr Calc Pharmacy 64.8 ml/min; Potassium 3.1 mmol/L (3.5-5.1)
[2021-01-11 07:19] LABS: Bilirubin,Total 0.6 mg/dl (0.2-1); Total Protein 6.2 gm/dl (6.4-8.2)
[2021-01-11] MEDS: hydrALAZINE TAB 50 MG TAB PO SCH ×3 (08:02→20:09)
[2021-01-11] MEDS: PANTOprazole 40 MG TAB PO SCH (08:03)
[2021-01-11] MEDS: ADVANCED PROBIOTIC 1250 MG CAPSULE PO SCH (08:03)
[2021-01-11] MEDS: PARoxetine HCL 10 MG TAB PO SCH (08:03)
[2021-01-11] MEDS: ENOXAPARIN INJ 40 MG/0.4 ML SYR SQ SCH (08:03)
[2021-01-11] MEDS: amLODIPine BESYLATE 5 MG TAB PO SCH (08:03)
[2021-01-11] MEDS: CLOPIDOGREL BISULFATE 75 MG TAB PO SCH (08:03)
[2021-01-11] MEDS: lisinopril 40 MG TAB PO SCH (08:03)
[2021-01-11] MEDS: ASPIRIN 81 MG ECTAB PO SCH (08:03)
[2021-01-11] MEDS: METOPROLOL TARTRATE 50 MG TAB PO SCH ×2 (08:03→20:09)
[2021-01-11] MEDS: cefTRIAXone SODIUM 2,000 MG in DEXTROSE 5% 50 ML IV SCH (08:08)
--- NOTE | 2021-01-11 12:55 | Hospitalist Progress Note ---
Date of Service January 11, 2021 Assessment & Plan (1) Bacteremia: Initial blood cultures from 01/08 with 4/4 Viridans streptococcus. One bottle with Staph spc, though I think likely contaminent. - Blood cultures from 01/09 also growing Gram(+) cocci in chains. - TTE on 01/10 without visualized vegetations. - Infectious Disease consulted - pending - Continue ceftriaxone and vancomycin for now. (2) Weakness: Likely secondary to bacteremia as above and lack of PO intake. - PT/OT consults pending (3) Aortic stenosis: S/p replacement 2017. - ECHO as above - Continue ASA, Plavix (4) SIADH (syndrome of inappropriate ADH production): Hx of. Na presently 139. - Monitor (5) HTN (hypertension): BP today is 125/80. Recent switch from HCTZ to amlodipine for SIADH which has been stable. - Continue amlodipine, lisinopril 40 mg, metoprolol 50mg BID, hydralazine 100mg TID (6) Hypothyroid: TSH was 3.2 this admission. - Continue levothyroxine 88mcg daily (7) History of knee replacement: Noted. Left knee x-ray on 01/10 showed no bony degeneration. No pain, swelling, redness, or effusion in the knee to suggest septic joint. - Monitor (8) Anxiety: Stable. - Continue paroxetine 10mg daily (9) DVT prophylaxis: Lovenox 40 mg SQ daily Admission and Anticipated Discharge Date Admission Date: January 09, 2021 Subjective Doing well today. Reports no fevers/chills, chest pain, shortness of breath, abdominal pain, nausea, or vomiting. Physical Exam Constitutional: WD/WN, vitals as above Eyes: EOM intact bilaterally; no conjunctival abnormality ENMT: external ear and nose normal, oropharynx normal Neck: trachea midline, no thyromegaly normal visual inspection Respiratory: normal respiratory effort, lungs clear to auscultation no respiratory distress Cardiovascular: RRR, no murmur, no edema Gastrointestinal (Abdomen): Inspection/Auscultation: abdomen normal to inspection; abdomen not distended Musculoskeletal: no cyanosis or clubbing, extremities motor strength 5/5 Skin: no rashes, warm and dry Neurologic: moves all extremities and awake Psychiatric: Orientation: alert, oriented to person and cooperative Results & Data Results & Data ([place]) Vital Signs (Past 12 Hours) Vital Signs Temp Pulse Pulse Resp BP BP Pulse Ox 01/11/21 11:23 36.8 C 61 16 126/78 94 01/11/21 09:56 61 01/11/21 06:59 36.7 C 63 18 151/87 H 94 01/11/21 04:00 36.6 C 69 16 172/79 H 92 PG Care Time/CCT Total # of Minutes Spent Total Time Spent with Patient: Total time spent is greater than 50% in coordination of care (as documented) at patient's floor/unit and/or counseling patient: Coding Level of Care Code 09791 Subseq Hosp Care Lvl 2 Diagnoses Bacteremia R78.81 Weakness R53.1 Aortic stenosis I35.0 SIADH (syndrome of inappropriate ADH production) E22.2 HTN (hypertension) I10 Hypothyroid E03.9 History of knee replacement Z96.659 Anxiety F41.9 DVT prophylaxis Z29.9
[2021-01-11] MEDS ORDERED: VANCOMYCIN TROUGH ONE (15:30)
--- NOTE | 2021-01-11 16:00 | Pharmacy Report ---
Pharmacy Abx Dose Short Note - Date of Service January 11, 2021 - Assessment & Plan Assessment 85 year old F receiving VANCOMYCIN + CEFTRIAXONE for treatment of Bacteremia Initial blood cultures from 01/08 with 4/4 Viridans streptococcus. One bottle with Staph spc; could be a contaminant but will wait to de-escalate until c/s result. TTE on 01/10 without visualized vegetations. Infectious Disease consulted - pending Day # 3 of antimicrobial therapy. Plan Vancomycin * Trough level of 13.7 mcg/mL is subtherapeutic * Increase dose to 1,250 mg IV every 12 hours * Goal trough level for bacteremia : 15 to 202 mcg/mL * Trough or random level ordered for: 01/13/21 @ 1600 Ceftriaxone: * Continue 2gm IV Q24hrs Pharmacy will continue to follow and will adjust dose/frequency as necessary. Thank you.
[2021-01-11] MEDS: traZODone HCL 50 MG TAB PO SCH (21:48)
[2021-01-12] MEDS ORDERED: METOPROLOL TARTRATE 25 MG TAB PO STA (03:27)
[2021-01-12] MEDS ORDERED: VANCOMYCIN HCL 1,250 MG in SODIUM CHLORIDE 0.9% 250 ML IV SCH (04:00)
--- NOTE | 2021-01-12 05:39 | Electrocardiogram Report ---
Test Reason : Blood Pressure : / mmHG Vent. Rate : 069 BPM Atrial Rate : 069 BPM P-R Int : 226 ms QRS Dur : 094 ms QT Int : 450 ms P-R-T Axes : 088 -40 029 degrees QTc Int : 482 ms Sinus rhythm with 1st degree A-V block Left axis deviation Moderate voltage criteria for LVH, may be normal variant Prolonged QT Abnormal ECG When compared with ECG of 10-JAN-2021 09:25, No significant change was found Confirmed by Sung Li ([id number]) on 01/12/2021 5:38:57 AM Referred By: REFERRED SELF Confirmed By:Sung Li
[2021-01-12 05:57] LABS: Hematocrit (blood only) 36.9 % (37-47); Hemoglobin 12.4 g/dL (12.0-16.0); Mean Corpuscular Hemoglobin 30.8 pg (25-34); Mean Corpuscular Hgb Conc 33.6 g/dL (32-36); Mean Corpuscular Volume 91.8 fL (80-100); Mean Platelet Volume 10.2 fL (7.4-10.4); Platelet Count 216 K/uL (130-400); RDW Coefficient of Variation 13.6 % (11.5-14.5); RDW Standard Deviation 45.2 fL (36.4-46.3); Red Blood Count 4.02 M/uL (4.2-5.4); White Blood Count 4.33 K/uL (4.8-10.8)
[2021-01-12] MEDS: LEVOTHYROXINE SODIUM 88 MCG TABLET PO SCH (06:03)
[2021-01-12 06:28] LABS: BUN Creatinine Ratio 15.8 (10-20); Calcium 8.3 mg/dl (8.5-10.1); Creatinine Clr Calc Pharmacy 61.5 ml/min; Est GFR (African American) 93.5; Est GFR (Non-African American) 80.6; Magnesium 1.9 mg/dl (1.8-2.4); Potassium 3.1 mmol/L (3.5-5.1)
[2021-01-12] MEDS: ASPIRIN 81 MG ECTAB PO SCH (07:44)
[2021-01-12] MEDS: lisinopril 40 MG TAB PO SCH (07:44)
[2021-01-12] MEDS: METOPROLOL TARTRATE 50 MG TAB PO SCH ×2 (07:44→21:24)
[2021-01-12] MEDS: hydrALAZINE TAB 50 MG TAB PO SCH ×3 (07:44→21:26)
[2021-01-12] MEDS: amLODIPine BESYLATE 5 MG TAB PO SCH (07:45)
[2021-01-12] MEDS: PANTOprazole 40 MG TAB PO SCH (07:45)
[2021-01-12] MEDS: ENOXAPARIN INJ 40 MG/0.4 ML SYR SQ SCH (07:45)
[2021-01-12] MEDS: CLOPIDOGREL BISULFATE 75 MG TAB PO SCH (07:45)
[2021-01-12] MEDS: PARoxetine HCL 10 MG TAB PO SCH (07:45)
[2021-01-12] MEDS: ADVANCED PROBIOTIC 1250 MG CAPSULE PO SCH (07:49)
[2021-01-12] MEDS: cefTRIAXone SODIUM 2,000 MG in DEXTROSE 5% 50 ML IV SCH (08:07)
[2021-01-12] MEDS: POTASSIUM CHLORIDE 10 MEQ TABCR PO SCH ×2 (08:07→21:25)
--- NOTE | 2021-01-12 11:28 | Hospitalist Progress Note ---
Date of Service January 12, 2021 Assessment & Plan (1) Bacteremia: Initial blood cultures from 01/08 with 4/4 Viridans streptococcus. One bottle with Staph spc, though I think likely contaminent. - Blood cultures from 01/09 also growing Gram(+) cocci in chains. - TTE on 01/10 without visualized vegetations. - Infectious Disease consulted - Recommend 4 weeks of ceftriaxone 2 g IV daily. (End date: 02/06/2021) - Will also get CT a/p with IV and PO contrast to check on colon cancer status since she has history of colon cancer. Per daughter's report, she had a GI bleed about 1 month ago for which she did not seek medical attention; just rested in bed for 2-3 days. (2) Weakness: Likely secondary to bacteremia as above and lack of PO intake. - PT/OT consults pending (3) Aortic stenosis: S/p replacement 2017. - ECHO as above - Continue ASA, Plavix (4) SIADH (syndrome of inappropriate ADH production): Hx of. Na presently 139. - Monitor (5) HTN (hypertension): BP today is 125/80. Recent switch from HCTZ to amlodipine for SIADH which has been stable. - Continue amlodipine, lisinopril 40 mg, metoprolol 50mg BID, hydralazine 100mg TID (6) Hypothyroid: TSH was 3.2 this admission. - Continue levothyroxine 88mcg daily (7) History of knee replacement: Noted. Left knee x-ray on 01/10 showed no bony degeneration. No pain, swelling, redness, or effusion in the knee to suggest septic joint. - Monitor (8) Anxiety: Stable. - Continue paroxetine 10mg daily (9) DVT prophylaxis: Lovenox 40 mg SQ daily Admission and Anticipated Discharge Date Admission Date: January 09, 2021 Subjective Doing well today. No major concerns. Reports no fevers/chills, chest pain, shortness of breath, abdominal pain, nausea, or vomiting. Physical Exam Constitutional: WD/WN, vitals as above Eyes: EOM intact bilaterally; no conjunctival abnormality ENMT: external ear and nose normal, oropharynx normal Neck: trachea midline, no thyromegaly normal visual inspection Respiratory: normal respiratory effort, lungs clear to auscultation no respiratory distress Cardiovascular: RRR, no murmur, no edema Gastrointestinal (Abdomen): Inspection/Auscultation: abdomen normal to inspection; abdomen not distended Musculoskeletal: no cyanosis or clubbing, extremities motor strength 5/5 Skin: no rashes, warm and dry Neurologic: moves all extremities and awake Psychiatric: Orientation: alert, oriented to person and cooperative Results & Data Results & Data ([facility]) Vital Signs (Past 12 Hours) Vital Signs Temp Pulse Pulse Resp BP BP Pulse Ox 01/12/21 11:06 36.5 C 62 18 119/68 93 01/12/21 08:00 61 01/12/21 07:05 36.4 C L 68 18 198/76 H 93 01/12/21 03:23 36.5 C 68 18 177/84 H 185/79 H 93 01/12/21 00:00 36.4 C L 67 18 174/94 H 171/77 H 91 PG Care Time/CCT Total # of Minutes Spent Total Time Spent with Patient: Total time spent is greater than 50% in coordination of care (as documented) at patient's floor/unit and/or counseling patient: Coding Level of Care Code 91004 Subseq Hosp Care Lvl 2 Diagnoses Bacteremia R78.81 Weakness R53.1 Aortic stenosis I35.0 SIADH (syndrome of inappropriate ADH production) E22.2 HTN (hypertension) I10 Hypothyroid E03.9 History of knee replacement Z96.659 Anxiety F41.9 DVT prophylaxis Z29.9
[2021-01-12] MEDS ORDERED: OPTIRAY 320 100ml IV ONE (13:54)
--- NOTE | 2021-01-12 14:58 | CT Scan Report ---
CT abd pelvis oral and IV con CLINICAL HISTORY: Abdominal pain and bacteremia COMPARISON STUDY: June 2016 TECHNIQUE: The patient was scanned following administration of dilute oral contrast, and in a dynamic helical fashion during intravenous administration of 94 cc Optiray 320 A dose lowering technique wa s utilized adhering to the principles of ALARA. CT DOSE: 842.81 mGycm FINDINGS: Lower chest: There is basilar subpleural septal edema/reticulation. Liver: The contrast-enhanced liver is normal in size, contour, and attenuation. There is no intrahepa tic biliary ductal dilatation. The hepatic veins and portal veins are patent. Gallbladder: There are sludge and calculi within the gallbladder. Spleen: Enlarged measuring 14.9 cm Pancreas: Unremarkable. Adrenal glands: There is minor left adrenal gland thickening Kidneys: There are multiple bilateral hypodense renal lesions. A 17 mm upper pole left renal lesion, exceeds water attenuation. This was felt to represent a hyperdense cyst on prior imaging. Bowel: There are no transition zones to indicate bowel obstruction. There is extensive colonic divert iculosis, most pronounced in the sigmoid region. There is no evidence of acute diverticulitis. There are postsurgical changes of a partial right hemicolectomy with an iliocolic anastomosis. There is mil d nonspecific gastric antral/duodenal bulb thickening. Peritoneum: There is no intraperitoneal free air or abdominal ascites. Vasculature: The abdominal aorta is normal in course and caliber. Adenopathy: Peripancreatic lymph nodes are the upper limits of normal in size. Pelvic viscera: The bladder, and pelvic viscera are unremarkable. Skeletal structures: There is a chronic L1 compression deformity. IMPRESSION: 1. No evidence of bowel obstruction. No evidence of free air 2. Postsurgical changes of a partial right hemicolectomy with ileocolic anastomosis 3. Advanced diverticulosis. No evidence of acute diverticulitis 4. Mild splenomegaly 5. Nonspecific gastric antral wall/duodenal bulb thickening 6. Cholelithiasis 7. Bilateral simple and complex renal cysts. ACT 112: Negative or not required by law. Electronically signed by: Barrett Kay M.D. 01/12/2021 2:57 PM
[2021-01-12] MEDS: traZODone HCL 50 MG TAB PO SCH (21:31)
[2021-01-13 05:31] LABS: Hematocrit (blood only) 36.1 % (37-47); Hemoglobin 12.3 g/dL (12.0-16.0); Mean Corpuscular Hemoglobin 31.1 pg (25-34); Mean Corpuscular Hgb Conc 34.1 g/dL (32-36); Mean Corpuscular Volume 91.4 fL (80-100); Mean Platelet Volume 10.2 fL (7.4-10.4); Platelet Count 232 K/uL (130-400); RDW Coefficient of Variation 13.7 % (11.5-14.5); RDW Standard Deviation 45.5 fL (36.4-46.3); Red Blood Count 3.95 M/uL (4.2-5.4); White Blood Count 7.35 K/uL (4.8-10.8)
[2021-01-13 05:57] LABS: Potassium 3.8 mmol/L (3.5-5.1)
[2021-01-13 05:58] LABS: Calcium 8.4 mg/dl (8.5-10.1); Creatinine Clr Calc Pharmacy 59.6 ml/min; Est GFR (African American) 92.5; Est GFR (Non-African American) 79.8
[2021-01-13] MEDS: LEVOTHYROXINE SODIUM 88 MCG TABLET PO SCH (06:05)
[2021-01-13] MEDS: hydrALAZINE TAB 50 MG TAB PO SCH ×2 (08:59→13:18)
[2021-01-13] MEDS ORDERED: CLOPIDOGREL BISULFATE 75 MG TAB PO SCH (09:00)
[2021-01-13] MEDS: ADVANCED PROBIOTIC 1250 MG CAPSULE PO SCH (09:00)
[2021-01-13] MEDS: amLODIPine BESYLATE 5 MG TAB PO SCH (09:00)
[2021-01-13] MEDS: ASPIRIN 81 MG ECTAB PO SCH (09:01)
[2021-01-13] MEDS: METOPROLOL TARTRATE 50 MG TAB PO SCH (09:01)
[2021-01-13] MEDS: lisinopril 40 MG TAB PO SCH (09:01)
[2021-01-13] MEDS: PARoxetine HCL 10 MG TAB PO SCH (09:01)
[2021-01-13] MEDS: PANTOprazole 40 MG TAB PO SCH (09:02)
[2021-01-13] MEDS: ENOXAPARIN INJ 40 MG/0.4 ML SYR SQ SCH (09:45)
[2021-01-13] MEDS: cefTRIAXone SODIUM 2,000 MG in DEXTROSE 5% 50 ML IV SCH (09:46)
[2021-01-13] MEDS ORDERED: diphenhydrAMINE Capsule 25 MG CAP PO ONE (13:24)
[2021-01-13] MEDS ORDERED: VANCOMYCIN TROUGH ONE (15:30)
--- NOTE | 2021-01-20 07:36 | Discharge Summary ---
Date of Service January 13, 2021 Admission HPI Per Admitting Provider 85 year old female who resides at the [facility] with PMHx significant for aortic stenosis s/p valve replacement 2018 [facility], HTN, hypothyroidism, SIADH, GERD, anxiety/depression presented to the emergency department on 01/08 for weakness and confusion with lack of PO intake and was discharged after electrolytes were replaced. However, blood cultures returned /4 with GPC in chains and patient was contacted to return to the emergency department for treatment. Patient states she is feeling better than yesterday during her ER visit, but still has some weakness. Not much of an appetite. Had heart valve replaced approximately 2 years ago and has been doing well since. No shortness of breath, chest pain, palpitations, syncope (outside of fallSeptember 2020, but does endorse feeling "wobbly" on her feet at times and n eeds left knee replacement but due to age unable to have done per her account). 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 Back pain chronic, and not worsened over past months. Discussed positive blood cultures and due to her aortic valve we will need to ensure spread not to that area that would require transfer out for valve repair if needed. Patient agreeable to admission and antibiotics. She has not taken any of her morning medications. ER Course: Ceftriaxone IV x 1, NSS 500cc. Lactic wnl. CXR with cardiomegaly but no failure. CT Head from yesterday negative for acute process. EKG with SR 1st degree AV block, LAD, LVH, prolonged QT Principal Diagnosis bacteremia Discharge Exam Constitutional: WD/WN, vitals as above Eyes: EOM intact bilaterally; no conjunctival abnormality ENMT: external ear and nose normal, oropharynx normal Neck: trachea midline, no thyromegaly normal visual inspection Respiratory: normal respiratory effort, lungs clear to auscultation no respiratory distress Cardiovascular: RRR, no murmur, no edema Gastrointestinal (Abdomen): Inspection/Auscultation: abdomen normal to inspection; abdomen not distended Musculoskeletal: no cyanosis or clubbing, extremities motor strength 5/5 Skin: no rashes, warm and dry Neurologic: moves all extremities and awake Psychiatric: Orientation: alert, oriented to person and cooperative Discharge Data Allergies Allergy/AdvReac Type Severity Reaction Status Date / Time niacin Allergy Intermediate REDESS, Verified 01/09/21 08:38 SKIN BURNING pollen extracts Allergy Intermediate TREE Verified 01/09/21 08:38 POLLENS: PROFOUND ACHE/FATIGUE bee venom protein (honey bee) Allergy Mild SWELLING Verified 01/09/21 08:38 mold Allergy Mild SNEEZING Verified 01/09/21 08:38 lactulose AdvReac Intermediate Abdominal Verified 01/13/21 09:30 Pain metformin AdvReac Intermediate MYALGIA, Verified 01/09/21 08:38 FATIGUE Consultations 01/09/21 09:01 ED Decision to Admit Stat 01/09/21 13:06 Consult Health Information Management Stat 01/10/21 12:17 Consult Infectious Diseases Routine Ordered Studies 01/10/21 13:19 US gallbladder Routine 01/12/21 11:32 CT abd pelvis oral and IV con Routine Hospital Course (1) Bacteremia: Initial blood cultures from 01/08 with 4/4 Viridans streptococcus. One bottle with Staph spc, though I think likely contaminent. - Blood cultures from 01/09 also growing Gram(+) cocci in chains. - TTE on 01/10 without visualized vegetations. - Infectious Disease consulted - Recommend 4 weeks of ceftriaxone 2 g IV daily. (End date: 02/06/2021) - Will also get CT a/p with IV and PO contrast to check on colon cancer status since she has history of colon cancer. Per daughter's report, she had a GI bleed about 1 month ago for which she did not seek medical attention; just rested in bed for 2-3 days. ok for discharge as afebrile, and can continue IV antibiotics for 28 days (2) Weakness: Likely secondary to bacteremia as above and lack of PO intake. - PT/OT consults pending (3) Aortic stenosis: S/p replacement 2018. - ECHO as above - Continue ASA, Plavix (4) SIADH (syndrome of inappropriate ADH production): Hx of. Na presently 139. - Monitor (5) HTN (hypertension): BP today is 125/80. Recent switch from HCTZ to amlodipine for SIADH which has been stable. - Continue amlodipine, lisinopril 40 mg, metoprolol 50mg BID, hydralazine 100mg TID (6) Hypothyroid: TSH was 3.2 this admission. - Continue levothyroxine 88mcg daily (7) History of knee replacement: Noted. Left knee x-ray on 01/10 showed no bony degeneration. No pain, swelling, redness, or effusion in the knee to suggest septic joint. - Monitor (8) Anxiety: Stable. - Continue paroxetine 10mg daily (9) DVT prophylaxis: Lovenox 40 mg SQ daily Ok to hold plavix for 5 days for tooth extraction. Patient will go to [facility] for 2nd COVID injection, as long as patient is asymtomatic and tolerating antibiotics Total Time Total Time Spent Total Time Spent (In Minutes): 35 Total Time Includes: Examination of the Patient, Discharge Planning and Medication Reconciliation Discharge Plan Discharge Items Patient Disposition: Transfer [facility] Fac Reason For Visit: B[place]EM[place] Discharge Diagnosis: bacteremia Activity: Resume your previous activity Non-emergency contact: Primary Care Provider Call non-emergency contact if: you have any medication questions Follow-up/Referrals: Lisbet Pham MD [Primary Care Provider] - Diet: Heart Healthy Addtl Attending Provider Instructions: You have been hospitalized for an acute medical problem. During your stay at [facility], we have made an effort to correct the problem that brought you to the hospital while keeping you as comfortable as possible. Medications were used to bring your condition under control and your discharge instructions will include directions for any medications you should take after leaving the hospital. Please make sure you see your Primary Care Provider as part of your follow up plan. Will need 24 more doses of ceftriaxone IV at 9:00 daily. Needs 28 doses in total and has received 4 doses in the hospital. 24 doses remain for the regimen. Pending Studies at Discharge: No Stand-Alone Forms: My [facility] Skilled Items Patient informed of condition?: No DNR: No Discharge Level of Care: Skilled Communicable Disease: No Discharge Prognosis: Stable Lines: US Guided Peripheral IV Urinary Catheter: No Medications and DC Order Prescriptions: New ceftriaxone 2 gram recon soln 2 g IV DAILY Qty: 25 RF: 0 Continued metoprolol tartrate 50 mg Tablet 50 mg PO BID RF: 0 lisinopril 40 mg Tablet 40 mg PO QAM RF: 0 levothyroxine 88 mcg Capsule 88 mcg PO QAM RF: 0 glucosam baca [id number]-[id number]-Mn [id number] mg Capsule 2 cap PO DAILY RF: 0 paroxetine HCl 10 mg Tablet 10 mg PO QAM RF: 0 trazodone 50 mg Tablet 75 mg PO HS RF: 0 hydralazine 50 mg Tablet 100 mg PO TID RF: 0 clopidogrel [Plavix] 75 mg Tablet 75 mg PO DAILY RF: 0 aspirin 81 mg Tablet,Delayed Release (Dr/Ec) 81 mg PO QAM RF: 0 alprazolam 0.5 mg Tablet 0.5 mg PO DAILY PRN (Reason: Anxiety) RF: 0 omeprazole 20 mg Capsule,Delayed Release(Dr/Ec) 20 mg PO DAILY RF: 0 diclofenac sodium [Voltaren] 1 % gel 1 g TOP QID PRN (Reason: KNEE PAIN) RF: 0 sodium chloride 1 gram Tablet 1 g PO BID 30 Days Qty: 60 RF: 3 amlodipine [Norvasc] 5 mg Tablet 2.5 mg PO QAM 30 Days Qty: 15 RF: 3 Probiotic-10 (with inulin) 10 billion cell -100 mg Capsule 1 cap PO DAILY RF: 0 Discharge Orders: Discharge Order (Routine); Ordered 01/13/21 Ordered By: Tate Pena/Other Patient Handouts: IV Care: Using IV Antibiotics Admission Data Admit Date/Time: 01/09/21 10:33 Attending Provider: Tate Issa Admit Provider: Ernesto Corona Primary Care Provider: Lisbet Pham Other Providers: [facility] ; Scott Glover ; Tadeo Currie ; Cally Chin ; Ronnie Forrest I. ; Ned Wolff II ; Cammy Ivy ; Bob Mora ; Patrizia Griffin [facility] Other Interventions: Discharge Summary Assessment (RN) Last Done: 01/13/21 15:27 Coding Level of Care Code D/C Day Management >30 mins Diagnoses Bacteremia R78.81 Weakness R53.1 Aortic stenosis I35.0 SIADH (syndrome of inappropriate ADH production) E22.2 HTN (hypertension) I10 Hypothyroid E03.9 History of knee replacement Z96.659 Anxiety F41.9 DVT prophylaxis Z29.9
== END 2021-01-13 16:14 ==
LOC: ED 08:05 → EDINP 10:33 → SUATTDRO 10:33 → 2S 19:59 → 3N 01-12 14:05

== ENCOUNTER 2022-09-11 20:19 | Observation (INO) ==
[2022-09-11 20:57] LABS: Basophils # (auto) 0.01 K/uL (0-0.2); Basophils % (auto) 0.1 %; Eosinophils # (auto) 0.13 K/uL (0-0.50); Eosinophils % (auto) 1.7 %; Hematocrit (blood only) 38.8 % (34.1-44.9); Hemoglobin 13.5 g/dl (12.0-16.0); Immature Granulocytes # (auto) 0.05 K/uL (0.00-0.02); Immature Granulocytes % (auto) 0.6 %; Lymphocytes # (auto) 0.49 K/uL (1.2-3.4); Lymphocytes % (auto) 6.3 %; Mean Corpuscular Hemoglobin 29.5 pg (25.0-34.0); Mean Corpuscular Hgb Conc 34.8 g/dL (32.0-36.0); Mean Corpuscular Volume 84.9 fL (80.0-100.0); Mean Platelet Volume 10.4 fL (9.4-12.3); Monocytes # (auto) 0.51 K/uL (0.24-0.82); Monocytes % (auto) 6.5 %; Neutrophils # (auto) 6.65 K/uL (1.4-6.5); Neutrophils % (auto) 84.8 %; Platelet Count 171 K/uL (130-400); RDW Coefficient of Variation 13.7 % (11.5-14.5); RDW Standard Deviation 42.6 fL (36.4-46.3); Red Blood Count 4.57 M/uL (3.93-5.22); White Blood Count 7.84 K/ul (4.8-10.8)
[2022-09-11 21:24] LABS: Alanine Aminotransferase 28 U/L (7-52); Albumin Globulin Ratio 1.2 (0.9-2); Albumin Level 3.7 gm/dl (3.4-5.0); Alkaline Phosphatase 71 U/L (34-104); Anion Gap 9 (3-11); Aspartate Aminotransferase 46 U/L (13-39); BUN Creatinine Ratio 23.9 (10-20); Bilirubin,Total 1.1 mg/dl (0.2-1.0); Blood Urea Nitrogen 21 mg/dl (6-23); Carbon Dioxide 24 mmol/L (21-32); Chloride 95 mmol/L (98-107); Est GFR (African American) 67.5 ml/min; Est GFR (Non-African American) 58.3 ml/min; Globulin 3.2 gm/dl (2.5-4.0); Glucose 123 mg/dl (70-99(Fasting)); Potassium 3.7 mmol/L (3.5-5.1); Sodium 128 mmol/L (136-145); Total Protein 6.9 gm/dl (6.0-8.3)
[2022-09-11 21:56] LABS: Appearance Urine Clear (Clear); Bilirubin Urine Negative (Negative); Blood Urine Negative (Negative); Glucose Urine UA Negative (Negative); Ketones Urine Negative (Negative); Leukocyte Esterase Urine Negative (Negative); Nitrite Urine Negative (Negative); Protein Urine 2+ (Negative); Specific Gravity Urine 1.025 (1.000-1.030); Urobilinogen Urine Negative (Negative)
[2022-09-11 21:59] LABS: Color Urine Yellow
--- NOTE | 2022-09-11 22:05 | Emergency Department Note ---
Impression & Plan Hyponatremia, Weakness, Decreased oral intake ED Provider Note Provider: Bryson Cardenas MD DATE OF SERVICE: 09/11/2022 CHIEF COMPLAINT: Not eating, possible confusion HISTORY OF PRESENT ILLNESS: Patient is a 87-year-old female history of SIADH, aortic stenosis, hypertension, hyponatremia, and recent UTIs presenting here today with daughter reportedly over the last 3 to 4 weeks has been suffering from a near constant UTI on Cipro, Augmentin, and lastly Macrobid. Patient reports that the Macrobid is making her sick and nauseous and that she not eating or drinking so well. Daughter reports that for the past 2 to 3 days facility staff states that she is refusing all medications including food and drink. Daughter reports that she seems a little bit off and staff is also said she is a bit confused. No trauma or falls reported. Patient denies any pain. Patient states she does not feel that confused. Patient states she does not remember not taking the rest of her medications. She denies abdominal pain. States again she is had nausea and vomited times but denies current. REVIEW OF SYSTEMS: A total of 10 review of systems was obtained and negative except as stated above in the HPI. PAST MEDICAL HISTORY: As noted above MEDICATIONS: Reviewed medication list from facility although the patient evidently for the last several days has not been taking SOCIAL HISTORY: Resides at the [facility] PHYSICAL EXAM: GENERAL: alert and oriented in no acute distress on stretcher although not the best historian Head: normocephalic and atraumatic EYES: No injection, discharge or icterus. PERRL NECK: Trachea midline. Supple. ENT: Mucous membranes pink and moist. LUNGS: Airway patent. No retractions. Breath sounds clear HEART: Regular rate and rhythm. No chest wall tenderness ABDOMEN: Soft and non-tender, without guarding or rebound. SKIN: Acyanotic, warm, dry, without rashes EXTREMITIES: Without significant tenderness with 1-2+ lower extremity edema. No significant erythema. NEUROLOGICAL: No focal deficits. No aphasia. No facial droop or slurred speech. Normal strength and tone in the extremities. Sensation to gross touch normal. Patient's laboratory studies and imaging reviewed. Differential includes Infection, dehydration, metabolic abnormality, hypo/hyperglycemia, electrolyte disturbance, anemia, hypoxia, cardiac sources, intracerebral event, toxicologic, neurologic, as well as other pathologies. IMPRESSION/MEDICAL DECISION MAKING: Nonfocal exam but not the best historian. Reported decreased intake without medications. Has history of SIADH on sodium tablets. Has been on multiple antibiotics for urinary infection. Discussed with staff there and culture sent over appears to have recently grown on the Citrobacter. Most recently on Macrobid for this. Benign abdomen on clinical exam. Not having focal deficits and doubt CVA. We will complete a CT of the head for completeness. Evidence of some hyponatremia today worsened in recent likely could be contributing and also her decreased intake also likely making this worse. Will not give antibiotics unless there is a convincing urinalysis at this point. Gave very small amount of urine sample initially but did not appear grossly infected. We will try to get additional sample. Given a small mount of normal saline here. Blood without significant leukocytosis and low suspicion for sepsis. No signs of significant renal dysfunction. No evidence of concerning hepatitis. Discussed with the daughter and patient at bedside who are agreeable to stay and the hospitalist was contacted. DIAGNOSIS: Hyponatremia, confusion, decreased intake DISPOSITION: Hospitalist will evaluate Patient was agreeable with this plan. Preliminary Findings Only See Final Report For Complete Findings CT HEAD: No acute infarct, bleed, or acute intracranial abnormality. Moderate, chronic, nonspecific white matter disease, stable compared with head CT 01/08/21. Stable mild central atrophy. Radiologist: Elina Mtz M.D. Study ready at 23:29 and initial results transmitted at 23:49 Past Med/Surg History Medical History Anxiety Aortic stenosis Blindness of left eye Cardiac murmur HX Chronic back pain SPASMS AND PAIN LOWER BACK Colon cancer Diverticular disease Diverticulitis Fall Hypertension Hypothyroidism HASHIMOTOS Macular degeneration Osteoarthritis SOB (shortness of breath) on exertion Stroke Surgical History History of bowel resection FOR [id number] YRS AGO NO CHEMO NO RADIATION History of colonoscopy X MULTIPLE History of heart valve replacement [facility] [place] 2018? History of tonsillectomy History of total knee replacement RIGHT Family History Daughter Family history of malignant hyperthermia DAUGHTER [facility] Y[facility] [id number] HAS NEVER BEEN TESTED Social History Smoking Status: Former smoker Tobacco Type: Cigarettes Second Hand Exposure: No; Hx Alcohol Use: No Hx Substance Use: No Preferred Language: Swiss Communication Ability: Effective [employer] Required: No Beliefs That Will Affect Care: None Current Living Situation: Personal Care Facility Current Living Situation Comment: [facility] Feels Safe at Home: Yes Assistive Devices: Glasses and Walker Allergies Allergies Allergy/AdvReac Type Severity Reaction Status Date / Time niacin Allergy Intermediate REDESS, Verified 03/14/21 11:25 SKIN BURNING pollen extracts Allergy Intermediate TREE Verified 03/14/21 11:25 POLLENS: PROFOUND ACHE/FATIGUE bee venom protein (honey bee) Allergy Mild SWELLING Verified 03/14/21 11:25 mold Allergy Mild SNEEZING Verified 03/14/21 11:25 amlodipine Allergy Unknown Unverified 09/11/22 23:35 lactulose AdvReac Intermediate Abdominal Verified 03/14/21 11:25 Pain metformin AdvReac Intermediate MYALGIA, Verified 03/14/21 11:25 FATIGUE Home Meds Home Medications Medication Instructions Recorded Confirmed levothyroxine 88 mcg capsule 88 mcg PO DAILYBB 02/16/19 03/14/21 lisinopril 40 mg tablet 40 mg PO QAM 02/16/19 03/14/21 metoprolol tartrate 50 mg tablet 50 mg PO BID 02/16/19 09/11/22 paroxetine HCl 10 mg tablet 10 mg PO QAM 02/16/19 03/14/21 trazodone 50 mg tablet 75 mg PO HS 02/16/19 09/11/22 clopidogrel 75 mg tablet (Plavix) 75 mg PO QAM 06/14/19 03/14/21 aspirin 81 mg tablet,delayed 81 mg PO QAM 10/08/20 03/14/21 release Lactobacillus no.46-B. 1 cap PO QAM 01/09/21 03/14/21 animalis-inulin 10 billion cell-100 mg capsule (Probiotic-10 (with inulin)) famotidine 20 mg tablet 20 mg PO BID 03/14/21 09/11/22 Saccharomyces boulardii 250 mg 250 mg PO BID 09/11/22 09/11/22 capsule (Florastor) hydralazine 100 mg tablet 100 mg PO TID 09/11/22 09/11/22 lactase 3,000 unit tablet (Lactaid) 3,000 unit PO AC PRN Gi Upset 09/11/22 09/11/22 nitrofurantoin macrocrystal 100 mg 100 mg PO BID 09/11/22 09/11/22 capsule Previous Rx's Medication Instructions Recorded amlodipine 5 mg tablet (Norvasc) 2.5 mg PO QAM 30 days #15 tabs 10/11/20 sodium chloride 1 gram tablet 1 g PO BID 30 days #60 tabs 10/11/20 lidocaine 4 % topical patch 1 patch topical DAILY PRN pain #15 03/14/21 (Salonpas (lidocaine)) ea lidocaine 5 % topical patch 1 patch topical DAILY PRN pain #15 03/14/21 ea oxycodone 5 mg tablet (Roxicodone) 2.5 mg PO Q8H PRN pain #6 tabs 03/14/21 Results & Data (ED) Vital Signs Vital Signs - 24 hr 09/11/22 20:28 09/11/22 23:38 Temperature 37.2 C Temperature Source Temporal Artery Scan Pulse Rate 109 H Pulse Rate [Apical] 100 H Respiratory Rate 18 20 Respiratory Effort / Characteristics Non-Labored Spontaneous Respiratory Depth Normal Blood Pressure 122/73 Blood Pressure [Right Arm] 150/88 H Blood Pressure Mean 89 Blood Pressure Mean [Right Arm] 108 Blood Pressure Position Sitting Pulse Oximetry 92 94 Oxygen Delivery Method Room Air Room Air Sepsis Recent Fever Within 48 Hours No Sepsis New/Unexplained Change in Mental Status N/A Sepsis Action Taken by Nursing No Action Required Laboratory Data Result diagrams: 09/11/22 20:44 09/11/22 20:44 Lab Results 09/11/22 09/11/22 09/11/22 Range/Units 20:44 20:44 20:44 WBC 7.84 (4.8-10.8) K/ul RBC 4.57 (3.93-5.22) M/uL Hgb 13.5 (12.0-16.0) g/dl Hct 38.8 (34.1-44.9) % MCV 84.9 (80.0-100.0) fL MCH 29.5 (25.0-34.0) pg MCHC 34.8 (32.0-36.0) g/dL RDW Std Deviation 42.6 (36.4-46.3) fL RDW Coeff of [place]ara 13.7 (11.5-14.5) % Plt Count 171 (130-400) K/uL MPV 10.4 (9.4-12.3) fL Immature Gran % (Auto) 0.6 % Neut % (Auto) 84.8 % Lymph % (Auto) 6.3 % [place] % (Auto) 6.5 % Eos % (Auto) 1.7 % Baso % (Auto) 0.1 % Neut # (Auto) 6.65 H (1.4-6.5) K/uL Lymph # (Auto) 0.49 L (1.2-3.4) K/uL [place] # (Auto) 0.51 (0.24-0.82) K/uL Eos # (Auto) 0.13 (0-0.50) K/uL Baso # (Auto) 0.01 (0-0.2) K/uL Immature Gran # (Auto) 0.05 H (0.00-0.02) K/uL Sodium 128 L (136-145) mmol/L Potassium 3.7 (3.5-5.1) mmol/L Chloride 95 L (98-107) mmol/L Carbon Dioxide 24 (21-32) mmol/L Anion Gap 9 (3-11) BUN 21 (6-23) mg/dl Creatinine 0.88 (0.6-1.2) mg/dl Est Cr Clr Drug Dosing Not Reportable Est GFR ( Amer) 67.5 ml/min Est GFR (Non-Af Amer) 58.3 ml/min BUN/Creatinine Ratio 23.9 H (10-20) Glucose 123 H (70-99(Fasting)) mg/dl Osmolality 272 L (280-300) mOsm/kg Calcium 9.0 (8.5-10.1) mg/dl Total Bilirubin 1.1 H (0.2-1.0) mg/dl AST 46 H (13-39) U/L ALT 28 (7-52) U/L Alkaline Phosphatase 71 (34-104) U/L Total Protein 6.9 (6.0-8.3) gm/dl Albumin 3.7 (3.4-5.0) gm/dl Globulin 3.2 (2.5-4.0) gm/dl Albumin/Globulin Ratio 1.2 (0.9-2) Urine Color Urine Appearance (Clear) Urine pH (4.5-7.5) Ur Specific [place] (1.000-1.030) Urine Protein (Negative) Urine Glucose (UA) (Negative) Urine Ketones (Negative) Urine Blood (Negative) Urine Nitrite (Negative) Urine Bilirubin (Negative) Urine Urobilinogen (Negative) Ur Leukocyte Esterase (Negative) SARS-CoV-2, RNA, NAAT (NEGATIVE) 09/11/22 09/11/22 Range/Units 21:16 22:32 WBC (4.8-10.8) K/ul RBC (3.93-5.22) M/uL Hgb (12.0-16.0) g/dl Hct (34.1-44.9) % MCV (80.0-100.0) fL MCH (25.0-34.0) pg MCHC (32.0-36.0) g/dL RDW Std Deviation (36.4-46.3) fL RDW Coeff of Nara (11.5-14.5) % Plt Count (130-400) K/uL MPV (9.4-12.3) fL Immature Gran % (Auto) % Neut % (Auto) % Lymph % (Auto) % [place] % (Auto) % Eos % (Auto) % Baso % (Auto) % Neut # (Auto) (1.4-6.5) K/uL Lymph # (Auto) (1.2-3.4) K/uL [place] # (Auto) (0.24-0.82) K/uL Eos # (Auto) (0-0.50) K/uL Baso # (Auto) (0-0.2) K/uL Immature Gran # (Auto) (0.00-0.02) K/uL Sodium (136-145) mmol/L Potassium (3.5-5.1) mmol/L Chloride (98-107) mmol/L Carbon Dioxide (21-32) mmol/L Anion Gap (3-11) BUN (6-23) mg/dl Creatinine (0.6-1.2) mg/dl Est Cr Clr Drug Dosing Est GFR ( Amer) ml/min Est GFR (Non-Af Amer) ml/min BUN/Creatinine Ratio (10-20) Glucose (70-99(Fasting)) mg/dl Osmolality (280-300) mOsm/kg Calcium (8.5-10.1) mg/dl Total Bilirubin (0.2-1.0) mg/dl AST (13-39) U/L ALT (7-52) U/L Alkaline Phosphatase (34-104) U/L Total Protein (6.0-8.3) gm/dl Albumin (3.4-5.0) gm/dl Globulin (2.5-4.0) gm/dl Albumin/Globulin Ratio (0.9-2) Urine Color Yellow Urine Appearance Clear (Clear) Urine pH 5.0 (4.5-7.5) Ur Specific [place] 1.025 (1.000-1.030) Urine Protein 2+ H (Negative) Urine Glucose (UA) Negative (Negative) Urine Ketones Negative (Negative) Urine Blood Negative (Negative) Urine Nitrite Negative (Negative) Urine Bilirubin Negative (Negative) Urine Urobilinogen Negative (Negative) Ur Leukocyte Esterase Negative (Negative) SARS-CoV-2, RNA, NAAT NEGATIVE (NEGATIVE) Administered Medications Discontinued Medications Sodium Chloride (Nss) 250 mls @ 999 mls/hr IV .Q16M ONE Stop: 09/11/22 22:56 Last Infusion: 09/11/22 23:11 Dose: 0 mls/hr Documented By: Admin: 09/11/22 22:46 Dose: 999 mls/hr Documented By: EMB Discharge Plan Visit Data Chief Complaint: Urinary Symptoms Stated Complaint: UTI FOR WEEKS, CONFUSION, NOT EATING ED Provider: Bryson Cardenas Discharge Problem: Hyponatremia, Weakness, Decreased oral intake Patient Disposition: Being Evaluated by Hospitalist Forms Stand Alone Forms: My [facility] [employer] Prescriptions Prescriptions: No Action metoprolol tartrate 50 mg Tablet 50 mg PO BID lisinopril 40 mg Tablet 40 mg PO QAM levothyroxine 88 mcg Capsule 88 mcg PO DAILYBB paroxetine HCl 10 mg Tablet 10 mg PO QAM trazodone 50 mg Tablet 75 mg PO HS clopidogrel [Plavix] 75 mg Tablet 75 mg PO QAM aspirin 81 mg Tablet,Delayed Release (Dr/Ec) 81 mg PO QAM sodium chloride 1 gram Tablet 1 g PO BID 30 Days Qty: 60 3RF amlodipine [Norvasc] 5 mg Tablet 2.5 mg PO QAM 30 Days Qty: 15 3RF Probiotic-10 (with inulin) 10 billion cell -100 mg Capsule 1 cap PO QAM Saccharomyces boulardii [Florastor] 250 mg Capsule 250 mg PO BID hydralazine 100 mg Tablet 100 mg PO TID nitrofurantoin macrocrystal 100 mg Capsule 100 mg PO BID Rx Instructions: BEGIN 09/09/22 X FIVE DAYS lactase [Lactaid] 3,000 unit Tablet 3,000 unit PO AC PRN (Reason: Gi Upset) Rx Instructions: administer with first bite of dairy food famotidine 20 mg Tablet 20 mg PO BID lidocaine 5 % adhesive patch,medicated 1 patch TOP DAILY PRN (Reason: pain) Qty: 15 0RF Rx Instructions: leave on most painful area for 12 hrs oxycodone [Roxicodone] 5 mg tablet 2.5 mg PO Q8H PRN (Reason: pain) Qty: 6 0RF lidocaine [Salonpas (lidocaine)] 4 % adhesive patch,medicated 1 patch topical DAILY PRN (Reason: pain) Qty: 15 0RF Rx Instructions: may leave on for up to 12 hrs Referrals Referrals: ZACHARY, [Primary Care Provider] -
[2022-09-11] MEDS ORDERED: SODIUM CHLORIDE 0.9% 250 ML IV ONE (22:41)
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
[2022-09-11] MEDS ORDERED: METOPROLOL TARTRATE 50 MG TAB PO STA (23:55)
[2022-09-12] MEDS ORDERED: MAGNESIUM HYDROXIDE SUSP 30 ML UDC PO PRN (01:10)
[2022-09-12] MEDS ORDERED: ONDANSETRON INJ 2 MG/ML 2 ML VIAL IV PRN (01:10)
[2022-09-12] MEDS ORDERED: ACETAMINOPHEN 325 MG TAB PO PRN (01:10)
[2022-09-12] MEDS ORDERED: oxyCODONE HCL IR 5 MG TAB (IMMEDIATE RELEASE) PO PRN (01:10)
[2022-09-12] MEDS ORDERED: ALUMINUM/MAGNESIUM SUSP 30 ML UDC PO PRN (01:10)
[2022-09-12] MEDS: SODIUM CHLORIDE 1 GM TABLET PO SCH ×2 (01:56→08:33)
[2022-09-12 06:27] LABS: Basophils # (auto) 0.02 K/uL (0-0.2); Basophils % (auto) 0.4 %; Eosinophils # (auto) 0.35 K/uL (0-0.50); Eosinophils % (auto) 6.4 %; Hematocrit (blood only) 36.2 % (34.1-44.9); Hemoglobin 12.4 g/dl (12.0-16.0); Immature Granulocytes # (auto) 0.03 K/uL (0.00-0.02); Immature Granulocytes % (auto) 0.5 %; Lymphocytes # (auto) 0.67 K/uL (1.2-3.4); Lymphocytes % (auto) 12.2 %; Mean Corpuscular Hemoglobin 29.7 pg (25.0-34.0); Mean Corpuscular Hgb Conc 34.3 g/dL (32.0-36.0); Mean Corpuscular Volume 86.6 fL (80.0-100.0); Mean Platelet Volume 9.7 fL (9.4-12.3); Monocytes # (auto) 0.52 K/uL (0.24-0.82); Monocytes % (auto) 9.5 %; Platelet Count 149 K/uL (130-400); RDW Coefficient of Variation 13.5 % (11.5-14.5); RDW Standard Deviation 42.7 fL (36.4-46.3); Red Blood Count 4.18 M/uL (3.93-5.22); White Blood Count 5.49 K/ul (4.8-10.8)
[2022-09-12] MEDS ORDERED: LEVOTHYROXINE SODIUM 88 MCG TABLET PO SCH (06:30)
[2022-09-12 06:45] LABS: Albumin Level 3.3 gm/dl (3.4-5.0); BUN Creatinine Ratio 23.3 (10-20); Calcium 8.6 mg/dl (8.5-10.1); Creatinine Clr Calc Pharmacy 55.3 ml/min; Est GFR (African American) 84.6 ml/min; Magnesium 1.7 mg/dl (1.7-2.4); Phosphorus 2.6 mg/dl (2.5-4.9); Potassium 3.5 mmol/L (3.5-5.1)
--- NOTE | 2022-09-12 07:14 | CT Scan Report ---
CT head/brain wo con CLINICAL HISTORY: 87 years-old Female with confusion. Acutely altered mental status TECHNIQUE: Multiple axial CT images of the head were obtained without contrast. A dose lowering tech nique was utilized adhering to the principles of ALARA. CT DOSE: 537.48 mGy.cm COMPARISON: Head CT 01/08/2021 FINDINGS: No acute intracranial hemorrhage, midline shift, intracranial mass, hydrocephalus, territorial ischem ia or abnormal extra-axial collection. Involutional changes with white matter hypodensities suggestiv e of chronic microvascular ischemic disease. Cerebral vascular calcifications. The calvarium is intact. Hyperostosis frontalis interna. Prior bilateral lens repair. The paranasal s inuses, mastoid air cells, and middle ear cavities are clear. IMPRESSION: No acute intracranial abnormality. ACT 112: Negative or not required by law. The above report was generated using voice recognition software. It may contain grammatical, syntax o r spelling errors. Electronically signed by: Andreas Thomas M.D. 09/12/2022 7:13 AM
[2022-09-12] MEDS: hydrALAZINE TAB 50 MG TAB PO SCH ×2 (08:33→13:49)
[2022-09-12] MEDS ORDERED: PARoxetine HCL 10 MG TAB PO SCH (09:00)
[2022-09-12] MEDS ORDERED: ADVANCED PROBIOTIC 1250 MG CAPSULE PO SCH (09:00)
[2022-09-12] MEDS ORDERED: HEPARIN SOD 5,000 UNIT/0.5 ML VIAL SQ SCH (09:00)
[2022-09-12] MEDS ORDERED: FAMOTIDINE 20 MG TAB PO SCH (09:00)
[2022-09-12] MEDS ORDERED: INFLUENZA VACCINE HIGH DOSE PF 65+ 0.7 ML SYR IM ONE (09:00)
[2022-09-12] MEDS ORDERED: ASPIRIN 81 MG ECTAB PO SCH (09:00)
[2022-09-12] MEDS ORDERED: amLODIPine BESYLATE 5 MG TAB PO SCH (09:00)
[2022-09-12] MEDS ORDERED: METOPROLOL TARTRATE 50 MG TAB PO SCH (09:00)
[2022-09-12] MEDS ORDERED: CLOPIDOGREL BISULFATE 75 MG TAB PO SCH (09:00)
--- NOTE | 2022-09-12 10:17 | Discharge Summary ---
Date of Service September 12, 2022 Admission HPI Per Admitting Provider The patient is an 87-year-old female with a past medical history including anxiety, bacteremia, generalized weakness, aortic stenosis, traumatic hematoma of face, SIADH, history of partial knee replacement, hypertension, hypothyroidism, low back strain and GERD. The patient is referred to the emergency department due to concerns regarding nursing at facility where she lives of decreased oral intake, progressive generalized weakness, decreased ambulation and confusion. Her daughter is with her in the emergency department, and does note that the patient has been appearing more weak and more confused. Principal Diagnosis 1. Hyponatremia-d/t SIADH 2. Debility 3. Recent UTI s/p outpatient antibiotic treatment Discharge Exam GENERAL: 87 yo Well-developed, well-nourished elderly WF. NAD. LUNGS: Nonlabored, upper airways CTA with bibasilar crackles CARDIOVASCULAR: Regular rate and rhythm. ABDOMEN: Soft, non-tender and non-distended. BS normoactive x 4 quad. EXTREMITIES: No edema. Non-tender. Peripheral pulses +2/4. NEUROLOGIC: A&O x3. PSYCHIATRIC: Cooperative. Appropriate mood and affect. SKIN: Warm, dry, intact. No rashes or lesions. Discharge Data Allergies Allergy/AdvReac Type Severity Reaction Status Date / Time niacin Allergy Intermediate REDESS, Verified 09/12/22 00:30 SKIN BURNING pollen extracts Allergy Intermediate TREE Verified 09/12/22 00:30 POLLENS: PROFOUND ACHE/FATIGUE bee venom protein (honey bee) Allergy Mild SWELLING Verified 09/12/22 00:30 mold Allergy Mild SNEEZING Verified 09/12/22 00:30 amlodipine Allergy Unknown Unverified 09/12/22 00:30 lactulose AdvReac Intermediate Abdominal Verified 09/12/22 00:30 Pain metformin AdvReac Intermediate MYALGIA, Verified 09/12/22 00:30 FATIGUE Consultations 09/11/22 23:29 ED Decision to Admit Stat Ordered Studies Head CT 09/11/22 22:13 CT head/brain wo con CLINICAL HISTORY: 87 years-old Female with confusion. Acutely altered mental status TECHNIQUE: Multiple axial CT images of the head were obtained without contrast. A dose lowering technique was utilized adhering to the principles of ALARA. CT DOSE: 537.48 mGy.cm COMPARISON: Head CT 01/08/2021 FINDINGS: No acute intracranial hemorrhage, midline shift, intracranial mass, hydrocephalus, territorial ischemia or abnormal extra-axial collection. Involutional changes with white matter hypodensities suggestive of chronic microvascular ischemic disease. Cerebral vascular calcifications. The calvarium is intact. Hyperostosis frontalis interna. Prior bilateral lens repair. The paranasal sinuses, mastoid air cells, and middle ear cavities are clear. IMPRESSION: No acute intracranial abnormality. ACT 112: Negative or not required by law. The above report was generated using voice recognition software. It may contain grammatical, syntax or spelling errors. Electronically signed by: Andreas Thomas M.D. 09/12/2022 7:13 AM Hospital Course (1) Hyponatremia: Hyponatremia/SIADH- - Sodium 128 upon admission, versus low as 115 on 03/25/2018 - Sodium 136 on 03/17/2021. - Patient has not taken any medications over the past few days - Resumed sodium chloride 1 g p.o. twice daily - Fluid restriction 1200 mL - Repeat BMP this AM Na improved to 131 (2) SIADH (syndrome of inappropriate ADH production): See above (3) Weakness: Generalized weakness/confusion/decreased oral intake- - Likely multifactorial: Recent UTI, medications such as Macrobid to treat UTI, progressive baseline weakness and deconditioning, aggravated by decreased oral intake - PT/OT consulted - Resides in assisted living facility, can arrange for PT/OT at facility (4) HTN (hypertension): Hypertension/aortic stenosis- - Blood pressure is relatively low at this time considering patient has not taken any of her blood pressure medications today - Heart rate is 100 with blood pressure 150/80. - Metoprolol and Hydralazine resumed and Amlodipine and Lisinopril held - Continue aspirin and clopidogrel (5) Hypothyroid: - Continue levothyroxine 88 mcg daily (6) Decreased oral intake: Patient has recently been treated for urinary tract infection with 3 successive antibiotics, with the last one being Macrobid, which is likely contributing to her confusion and decreased oral intake. - Her daughter was advised to not have the patient on that medication again (7) Anxiety: - Continue paroxetine and trazodone (8) Aortic stenosis: - Given marginal sat of 90% and bibasilar crackles, obtained cxr (which was not done in ED) - CXR shows cardiomegaly with PVC and mild pulmonary edema, she was given fluid in the ER - Suspect she was overhydrated in setting of valve replacement - Ordered a single dose of IV Lasix 40mg x 1 - Would recommend f/u with pcp and update of echo - Currently not experiencing orthopnea, LE edema, conversational dyspnea, or dyspnea at rest or with exertion therefore not considered an exacerbation of CHF - Noted that she does not currently take any diuretics but prior to her hospital admission last year she was on HCTZ which was stopped due to her hyponatremia/siadh - May need to reinstitute daily diuretic but again will leave this at PCP's discretion Plan Patient is medically and hemodynamically stable to return to assist living facility. Awaiting formal PT/OT eval but do not anticipate they would disagree. Updated case management who will touch base with the facility to confirm her return. I did provide update to patient's son, Andrews, who is the medical power of computer applications engineer. CM will speak with son regarding transporting her back to facility. I did request that PT/OT continue upon her return to the [facility]. Plan has been d/w Dr. Scott Glover who is in agreement with aforementioned. Total Time Total Time Spent Total Time Spent (In Minutes): >30 minutes Discharge Plan Discharge Items Patient Disposition: Transfer Nursing Home Fac Reason For Visit: CONFUSION, HYPONATREMIA Discharge Diagnosis: generalized weakness low sodium level Activity: Resume your previous activity Non-emergency contact: Primary Care Provider Call non-emergency contact if: you have any medication questions and your symptoms worsen Follow-up/Referrals: ZACHARY, [Primary Care Provider] - Diet: Regular Addtl Attending Provider Instructions: You were hospitalized due to low sodium level, confusion, and weakness. Fortunately, your confusion cleared, the confusion is likely related to recent antibiotics used for urinary tract infection. Your sodium level has improved today. This was likely a combination of decreased appetite and food intake related to nausea from your antibiotic you were taking for your urinary tract infection. In addition, you also have an issue with your body inappropriately holding onto water which dilutes out the sodium in your bloodstream. For this issue, you already take salt tablets but the dose has been increased from once a day to twice a day. You should also keep your total fluid intake less than 1.5 liters per day. A Chest xray was done which noted some excess fluid in your lungs. You were given a dose of IV Lasix to help rid your body of excess fluid. You may need to be started on once a day Lasix by mouth but would let this at the discretion of your primary care doctor. You may have simply just been given too much IV fluid during your time in the emergency room. I would recommend having an updated ultrasound of your heart due to your history of valve replacement. This will be left to the discretion of your primary care provider. Your urinary tract infection appears to have resolved and you do not need any more antibiotics for this. Physical and occupational therapy was consulted to work with you. They should continue to work with you upon your return to the [facility]. We would recommend that you follow up with your established healthcare provider upon your return to the [facility]. If you have any questions following your discharge, contact the nonemergency number listed on your discharge paperwork. Pending Studies at Discharge: No Stand-Alone Forms: [facility] Skilled Items Patient informed of condition?: Yes DNR: No Discharge Level of Care: Skilled Communicable Disease: No Discharge Prognosis: Stable Lines: None Urinary Catheter: No Medications and DC Order Prescriptions: Continued metoprolol tartrate 50 mg Tablet 50 mg PO BID levothyroxine 88 mcg Capsule 88 mcg PO DAILYBB paroxetine HCl 10 mg Tablet 10 mg PO QAM trazodone 50 mg Tablet 75 mg PO HS clopidogrel [Plavix] 75 mg Tablet 75 mg PO QAM aspirin 81 mg Tablet,Delayed Release (Dr/Ec) 81 mg PO QAM Saccharomyces boulardii [Florastor] 250 mg Capsule 250 mg PO BID hydralazine 100 mg Tablet 100 mg PO TID lactase [Lactaid] 3,000 unit Tablet 3,000 unit PO AC PRN (Reason: Gi Upset) Rx Instructions: administer with first bite of dairy food oxycodone-acetaminophen [Percocet] 5-325 mg Tablet 1 tab PO BID MDD 3G PRN (Reason: Pain) amoxicillin 500 mg Capsule 2,000 mg PO .PRN/UD PRN (Reason: Prophylaxis) Rx Instructions: TAKE FOUR CAPSULES, BY MOUTH, ONE HOUR BEFORE DENTAL AND OTHER PROCEDURES. loperamide [Imodium A-D] 2 mg Tablet 2 mg PO .UD PRN (Reason: Diarrhea) Rx Instructions: TAKE TWO TABLETS BY MOUTH FOR FIRST DOSE, THEN, ONE TABLET AFTER EACH LOOSE STOOL. acetaminophen [Tylenol] 325 mg Tablet 650 mg PO Q4H PRN (Reason: Fever Or Pain) phenazopyridine 100 mg Tablet 100 mg PO Q8H PRN (Reason: .URINARY BURNING) nystatin 100,000 unit/gram Powder 1 applic TOPICAL DAILY Rx Instructions: APPLY UNDER BREASTS FOR RASH sodium chloride 1 gram tablet 1 g PO BID Qty: 60 0RF famotidine 20 mg Tablet 20 mg PO BID Discontinued lisinopril 40 mg Tablet 40 mg PO QAM nitrofurantoin macrocrystal 100 mg Capsule 100 mg PO BID Rx Instructions: BEGIN 09/09/22 X FIVE DAYS amlodipine [Norvasc] 5 mg Tablet 5 mg PO QAM Discharge Orders: Discharge Order (Routine); Ordered 09/12/22 Ordered By: Gretchen Pena/Doe Patient Handouts: Hyponatremia Dc Admission Data Admit Date/Time: 09/11/22 23:37 Attending Provider: Scott Glover Admit Provider: Chandu Jacobo Primary Care Provider: Doe SHARMA Providers: Chandu Jacobo Other Interventions: Discharge Summary Assessment (RN) Last Done: 09/12/22 13:39 Supervising Physician Co-Signing Physician Notes I supervised Gretchen Ellis PA-C on the care of this patient. I did not see the patient as she had been seen by an attending physician less than 24 hours prior. The plan is as written in her note except for any following changes/exceptions: None Likely low sodium due to poor oral intake (ie low solute) complicated by her SIADH. Doing better. Will avoid Macrobid in the future. Coding Level of Care Code 25648 OBS Care - Discharge Diagnoses Hyponatremia E87.1 SIADH (syndrome of inappropriate ADH production) E22.2 Weakness R53.1 HTN (hypertension) I10 Hypothyroid E03.9 Decreased oral intake R63.8 Anxiety F41.9 Aortic stenosis I35.0
--- NOTE | 2022-09-12 10:40 | XRay Report ---
XR chest 1V portable HISTORY: 87 years-old Female crackles and borderline hypoxia acute shortness of breath with hypoxia COMPARISON: Chest radiograph 01/09/2021 TECHNIQUE: Portable AP view of the chest FINDINGS: Cardiac silhouette is enlarged. Aortic valvular endograft with Loop recorder device. Atherosclerosis of the aorta. No pneumothorax. Pulmonary vascular congestion with interstitial coarsening. Trace pleu ral effusions. Degenerative changes of the shoulders and spine. IMPRESSION: 1. Cardiomegaly with pulmonary vascular congestion and mild pulmonary edema. 2. Trace pleural effusions. ACT 112: Negative or not required by law. The above report was generated using voice recognition software. It may contain grammatical, syntax o r spelling errors. Electronically signed by: Andreas Thomas M.D. 09/12/2022 10:38 AM
[2022-09-12] MEDS ORDERED: FUROSEMIDE 40 MG/4 ML VIAL IV ONE (10:54)
[2022-09-12] MEDS ORDERED: PNEUMOCOCCAL POLYSACCHARIDES 25 MCG/0.5 ML VIAL/SYR IM ONE (11:30)
--- NOTE | 2022-09-12 11:44 | Communication Note ---
Date of Service: September 12, 2022 By CMS guidelines, a determination that the admission or continued stay is not medically necessary has been made by a member of the UR committee and a helene herron for this hospital stay, therefore a Code 44 will be completed and the Inpatient admission will be changed to outpatient. Josh Ordonez MD Member, Utilization Review Committee
--- NOTE | 2022-09-12 14:38 | XCELERA ---
[id number]
[2022-09-12] MEDS ORDERED: traZODone HCL 50 MG TAB PO SCH (21:00)
== END 2022-09-12 14:15 | DRG 645 ==
LOC: ED 20:19 → SUATTDRO 23:37 → INTOOBSV 23:37 → 3W 23:37